=== PATIENT | female | born 1995 | race Caucasian/White ===

== ENCOUNTER → 2017-08-19 16:43 | Outpatient (CLI) | payer SELFPAY ==
[2017-08-19 18:40] LABS: Chlamydia Trachomatis by PCR Negative (Negative); Neisserai gonorrhoeae by PCR Negative (Negative); Probe Check PASS; Sample Adequacy Control PASS; Specimen Processing Control PASS
[2017-08-25 14:14] LABS: HPV Reflexed? NOT INDICATED
== END ==
PROVIDERS: Visit Provider Obstetrics & Gynecology
DX: Z12.4 Encounter for screening for malignant neoplasm of cervix (principal); Z34.90 Encounter for supervision of normal pregnancy, unspecified, unspecified trimester
CPT/HCPCS: 87086; 87088; 87491; 87591; 88175; G0145

== ENCOUNTER → 2017-08-24 13:28 | Outpatient (CLI) | payer OTHER, SELFPAY ==
--- NOTE | 2017-08-24 13:29 | US_ITS ---
STUDY: SECOND AND THIRD TRIMESTER OBSTETRICAL ULTRASOUND REASON FOR EXAM: Female, 21 years old. Routine survey. LMP: March 19, 2017. TECHNIQUE: Transabdominal PRIOR ULTRASOUND: None. FINDINGS: There is a single intrauterine fetus. The fetus is in a breech presentation. There is demonstrated cardiac activity with a heart rate of 139 bpm. There is a normal amniotic fluid volume. The largest amniotic fluid pocket measures 8.5 cm x 5.9 cm.The placenta is fundal in location. There are Grade 0 placental changes. The cervix measures 3.0 cm in length. The adnexal regions are not visualized. BIOMETRY: BPD: 5.49 cm: 22 weeks, 6 days HC: 20.97 cm: 23 weeks, 1 days AC: 17.29 cm: 22 weeks, 2 days FL: 3.98 cm: 22 weeks, 6 days CI: 76% FL/BPD: 72% FL/HC: FL/AC: 23% HC/AC: 1.21 age by current US: 22 weeks, 6 days. HARSHAD by current US: December 22, 2017. Estimated weight: 515 grams, +/- 75 grams, 43 %. Age by LMP: 22 weeks, 4 days. HARSHAD by LMP: December 24, 2017. ANATOMY: Gender: Indeterminant Cranium: Normal lateral ventricles. Normal choroid plexus. Normal cerebellum. Normal cisterna magna. Normal face, nose and lips. Chest: Normal 4-chamber heart. Abdomen/Pelvis: Normal diaphragm. Normal stomach. Normal abdominal wall. Normal cord insertion. Normal 3 vessel cord. Normal kidneys. Normal bladder. Spine: Normal cervical spine. Normal thoracic spine. Normal lumbar spine. Normal sacrum. Extremities: Normal bilateral upper extremities. Normal bilateral lower extremities. US/OB Anatomy Scan IMPRESSION: Single live intrauterine gestation with a mean gestational age of 22 weeks and 6 days. Electronically Signed: Jaziel Ralph MD at 8:55 EDT Tel [phone], Service support ,
== END ==
PROVIDERS: Visit Provider Obstetrics & Gynecology
DX: Z34.90 Encounter for supervision of normal pregnancy, unspecified, unspecified trimester (principal)
CPT/HCPCS: 76805

== ENCOUNTER → 2017-09-21 09:16 | Outpatient (CLI) | payer OTHER, SELFPAY ==
[2017-09-21 10:33] LABS: Glucose Challenge Gest 1H 50g 106 mg/dL (70-140)
== END ==
PROVIDERS: Nurse Practitioner Women's Health; Visit Provider Obstetrics & Gynecology
DX: Z34.90 Encounter for supervision of normal pregnancy, unspecified, unspecified trimester (principal)
CPT/HCPCS: 36415; 82950

== ENCOUNTER → 2017-11-23 13:04 | Outpatient (CLI) | payer SELFPAY ==
--- NOTE | 2017-11-23 13:07 | US_ITS ---
STUDY: SECOND AND THIRD TRIMESTER OBSTETRICAL ULTRASOUND - LIMITED REASON FOR EXAM: Female, 22 years old. growth LMP: PRIOR ULTRASOUND: August 24, 2017 TECHNIQUE: Transabdominal ultrasound evaluation was performed. FINDINGS: There is a single intrauterine fetus. The fetus is in a breech presentation. There is demonstrated cardiac activity with a heart rate of 160 bpm. There is a normal amniotic fluid volume. The largest amniotic fluid pocket measures 3.5 cm. The amniotic fluid index (GRACIA) is 10 cm. The placenta is fundal in location. There are Grade 0 placental changes. The cervix measures 3.2 cm in length. BIOMETRY: BPD: 89mm: 35 weeks, 6 days HC: 319mm: 36 weeks, 0 days AC: 308mm: 34 weeks, 6 days FL: 69mm: 35 weeks, 2 days Age by LMP: 35 weeks, 4 days. HARSHAD by LMP: 8.2.18. age by prior US: 35 weeks, 6 days. HARSHAD by prior US: 7.31.18. age by current US: 35 weeks, 4 days. HARSHAD by current US: 8.2.18. Estimated weight: 2609 grams, +/- 381 grams, 38 percentile. US/OB Limited With Biometrics IMPRESSION: There is a single live intrauterine with a heart rate of 160 bpm. age by current US: 35 weeks, 4 days. HARSHAD by current US: 8.2.18. Estimated weight: 2609 grams, +/- 381 grams, 38 percentile Electronically Signed: Dwight Oswald MD at 22:53 EDT , Service support ,
== END ==
PROVIDERS: Visit Provider Obstetrics & Gynecology
DX: Z34.90 Encounter for supervision of normal pregnancy, unspecified, unspecified trimester (principal)
CPT/HCPCS: 76816

== ENCOUNTER → 2017-12-03 15:16 | Outpatient (CLI) | payer OTHER, SELFPAY ==
[2017-12-03 18:20] LABS: Group B Strep DNA By PCR Negative (Negative); Internal Control PASS; Probe Check PASS; Specimen Processing Control PASS
== END ==
PROVIDERS: Visit Provider Obstetrics & Gynecology
DX: Z34.00 Encounter for supervision of normal first pregnancy, unspecified trimester (principal)
CPT/HCPCS: 87081; 87653

== ENCOUNTER 2017-12-06 06:10 | Inpatient (IN) | payer SELFPAY ==
[2017-12-06 05:23] VITALS: BMI 27.9
[2017-12-06] MEDS: Lactated Ringers 1,000 ML 50 ML IV (06:00)
[2017-12-06] MEDS: Amnioinfusion- 0.9% NS 1,000 ML IV.SOLN. INTRA-UTER (06:37)
[2017-12-06 06:42] LABS: Hemoglobin 13.1 g/dl (12.0-15.0); Mean Corp Hgb Conc 33.6 g/gl (32-36); Mean Corpuscular Volume 86.5 fL (81-99); Mean Platelet Vol. 10.3 fl (6.2-12.0); Platelet Count 223 K/mm3 (150-450); RBC Distribution Width CV 13.6 % (11.6-14.6); Red Blood Count 4.51 M/mm3 (4.2-5.4); White Blood Count 17.7 K/mm3 (4.4-11.0)
[2017-12-06 06:45] LABS: Scan Indicated on CBC? Y/N NO
--- NOTE | 2017-12-06 07:06 | PCM.HP.OB ---
- Problem List (1) Hypothyroidism affecting Status: Acute Qualifiers: Comment: tsh q trimester, on armour thyroid (2) Previous delivery affecting Status: Acute Comment: planning TOLAC, consent signed, information given, 81.8% chance of success (3) Supervision of normal Status: Acute Qualifiers: Comment: Needs PNL HARSHAD 12/24/17 gender surprise PC [facility] Jose History Date of Admission: 12/06/17 Final HARSHAD: 12/24/17 Gestational age: 37 Weeks and 3 Days History of this : This is a 22 year-old, G [], P [], at weeks gestational age. Medical History: Medical History (Last Reviewed 12/03/17 @ 13:54 by Eli Adame) Hypothyroidism E03.9 Surgical History: Surgical History (Last Reviewed 12/03/17 @ 13:54 by Eli Adame) S/P Z98.891 2016 S/P tonsillectomy Z90.89 2010 Allergies No Known Allergies Allergy (Verified 12/03/17 13:53) Home Medications: Home Medications vitamin,calcium,xdgoropl-ufku-ikpnr acid tablet 1 tab PO QDAY 08/19/17 thyroid (pork) 120 mg tablet 120 mg PO QDAY 08/19/17 Smoking Status: Never smoker Alcohol: None Heart Tracins moderate variability reactive initially mild periodic variables and minimal variability TOCO Analysis: q2 History Past Pregnancies: Past Pregnancies Delivery Date Name GA/Weeks Outcome Route Weight Gender Labor Length Anesthesia Delivery Location Provider FOB 2016 [place] 40 term ltcs male epi Labs: Mom[facility] Labs & Results 12/06/17 12/06/17 06:00 06:00 WBC 17.7 H RBC 4.51 Hgb 13.1 Hct 39.0 MCV 86.5 MCH 29.0 MCHC 33.6 RDW 13.6 RDW Differential 43.0 Plt Count 223 MPV 10.3 Blood Type Pending Antibody Screen Pending Social History Smoking Status Never smoker Expected Delivery Method: Number of Visits: 5 Review of Systems Constitutional: Denies: Fever, Malaise Eyes: Denies: Blurred vision, Vision Change HEENT: Denies: Head Aches, Visual Changes Cardiovascular: Denies: Chest Pain, Palpitations Respiratory: Denies: Cough, Shortness of Breath, Wheezing Gastrointestinal: Denies: Abdominal Pain, Diarrhea, Nausea, Vomiting Genitourinary: Denies: Dysuria, Hematuria Musculoskeletal: Denies: Joint Pain, Muscle pain Skin: Denies: Lesions, Rash Neurological: Denies: Blurred vision, Focal weakness, Headaches Psychiatric: Denies: Anxiety, Depression Endocrine: Denies: Heat/ Cold Intolerance Hematologic/ Lymphatic: Denies: Easy Bruising, Easy Bleeding Physical Exam General: Alert, Cooperative, No apparent distress HEENT: Atraumatic, Normocephalic. Negative for: Thyromegaly, Lymphadenopathy Cardiovascular: Regular rate Lungs: Normal air movement Abdomen: Soft, Non Tender, Gravid Neurological: Deep Tendon Reflexes 2+/4 and Symmetrical, Neuro grossly intact. Negative for: Clonus R D MANAGER: Normal external genitalia. Negative for: Vulvar lesions Estimated gestational size: Appropriate for gestational size Presentation: Cephalic Cervix Dilation (cm): 5 Station: 0 Effacement (%): 90 Assessment/Plan All Active Problems (Last Reviewed 12/03/17 @ 13:54 by Eli Adame) Hypothyroidism affecting (Acute) Previous delivery affecting (Acute) Supervision of normal (Acute) This is a 22 year-old, at 37w1d weeks gestational age.
--- NOTE | 2017-12-06 07:12 | HP.PCM_ITS ---
- Problem List (1) Hypothyroidism affecting Status: Acute Qualifiers: Comment: tsh q trimester, on armour thyroid (2) Previous delivery affecting Status: Acute Comment: planning TOLAC, consent signed, information given , 81.8% chance of success (3) Supervision of normal Status: Acute Qualifiers: Comment: Needs PNL HARSHAD 12/24/17 gender surprise PC Melony Jose History Date of Admission: 12/06/17 Final HARSHAD: 12/24/17 Gestational age: 37 Weeks and 3 Days History of this : This is a 22 year-old, G [], P [], at weeks gestational age. Medical History: Medical History (Last Reviewed 12/03/17 @ 13:54 by Eli Adame) Hypothyroidism E03.9 Surgical History: Surgical History (Last Reviewed 12/03/17 @ 13:54 by Eli Adame) S/P Z98.891 2016 S/P tonsillectomy Z90.89 2010 Allergies No Known Allergies Allergy (Verified 12/03/17 13:53) Home Medications: Home Medications vitamin,calcium,feargxyn-axin-exydj acid tablet 1 tab PO QDAY 08/19/17 thyroid (pork) 120 mg tablet 120 mg PO QDAY 08/19/17 Smoking Status: Never smoker Alcohol: None Heart Tracins moderate variability reactive initially mild periodic variables and minimal variability TOCO Analysis: q2 History Past Pregnancies: Past Pregnancies Delivery Date Name GA/Weeks Outcome Route Weight Gender Labor Length Anesthesia Delivery Location Provider FOB 2016 [place] 40 term ltcs male epi Labs: Mom's Labs & Results 12/06/17 12/06/17 06:00 06:00 WBC 17.7 H RBC 4.51 Hgb 13.1 Hct 39.0 MCV 86.5 MCH 29.0 MCHC 33.6 RDW 13.6 RDW Differential 43.0 Plt Count 223 MPV 10.3 Blood Type Pending Antibody Screen Pending Social History Smoking Status Never smoker Expected Infant Delivery Method: Number of Visits: 5 Review of Systems Constitutional: Denies: Fever, Malaise Eyes: Denies: Blurred vision, Vision Change HEENT: Denies: Head Aches, Visual Changes Cardiovascular: Denies: Chest Pain, Palpitations Respiratory: Denies: Cough, Shortness of Breath, Wheezing Gastrointestinal: Denies: Abdominal Pain, Diarrhea, Nausea, Vomiting Genitourinary: Denies: Dysuria, Hematuria Musculoskeletal: Denies: Joint Pain, Muscle pain Skin: Denies: Lesions, Rash Neurological: Denies: Blurred vision, Focal weakness, Headaches Psychiatric: Denies: Anxiety, Depression Endocrine: Denies: Heat/ Cold Intolerance Hematologic/ Lymphatic: Denies: Easy Bruising, Easy Bleeding Physical Exam General: Alert, Cooperative, No apparent distress HEENT: Atraumatic, Normocephalic. Negative for: Thyromegaly, Lymphadenopathy Cardiovascular: Regular rate Lungs: Normal air movement Abdomen: Soft, Non Tender, Gravid Neurological: Deep Tendon Reflexes 2+/4 and Symmetrical, Neuro grossly intact. Negative for: Clonus MAKEUP SALES ADVISOR: Normal external genitalia. Negative for: Vulvar lesions Estimated gestational size: Appropriate for gestational size Presentation: Cephalic Cervix Dilation (cm): 5 Station: 0 Effacement (%): 90 Assessment/Plan All Active Problems (Last Reviewed 12/03/17 @ 13:54 by Eli Adame) Hypothyroidism affecting (Acute) Previous delivery affecting (Acute) Supervision of normal (Acute) This is a 22 year-old, at 37w1d weeks gestational age.
[2017-12-06] MEDS: Oxytocin 30 units/NS 500 ml 30 UNITS/500 ML IV.SOLN 334 UNITS IV (07:56)
--- NOTE | 2017-12-06 08:22 | PCM.OB.VAG ---
- Problem List (1) Hypothyroidism affecting Status: Acute Qualifiers: Comment: tsh q trimester, on armour thyroid (2) Previous delivery affecting Status: Acute Comment: planning TOLAC, consent signed, information given, 81.8% chance of success (3) Supervision of normal Status: Acute Qualifiers: Comment: Needs PNL HARSHAD 12/24/17 gender surprise PC [place] Jose Vaginal Delivery Maternal Presentation: Active Labor 22 yo 37w1d IAL Amniotic Membrane Rupture Type: Artificial Amniotic Fluid Description: Clear Final HARSHAD: 12/24/17 Gestational age: 37 Weeks and 3 Days Date of Procedure: 12/06/17 Pre-Operative Diagnosis: ial Post-Operative Diagnosis: same Surgery/ Procedure Performed: Spontaneous Vaginal Delivery, - - Description of Procedure: Patient began pushing and delivered the head in the henry presentation. The head was delivered atraumatically. The anterior and posterior shoulders delivered without complication followed by the rest of the infant and the was placed on the maternal abdomen. Delayed cord clamping was employed for approximately 60 seconds. Cord was clamped and cut and gentle traction was applied to the cord and the placenta delivered spontaneously immediately following it was noted to be intact with three-vessel cord. The perineum and vagina were inspected and noted to have a second degree laceration that was repaire din the usual fashion with 3-0 vicryl rapide. EBL was 200 cc. Patient and tolerated delivery well.
[2017-12-06] MEDS: Oxytocin 30 units/NS 500 ml 30 UNITS/500 ML IV.SOLN 167 UNITS IV (08:24)
--- NOTE | 2017-12-06 08:25 | OP.PCM_ITS ---
- Problem List (1) Hypothyroidism affecting Status: Acute Qualifiers: Comment: tsh q trimester, on armour thyroid (2) Previous delivery affecting Status: Acute Comment: planning TOLAC, consent signed, information given , 81.8% chance of success (3) Supervision of normal Status: Acute Qualifiers: Comment: Needs PNL HARSHAD 12/24/17 gender surprise PC [place] Jose Vaginal Delivery Maternal Presentation: Active Labor 22 yo 37w1d IAL Amniotic Membrane Rupture Type: Artificial Amniotic Fluid Description: Clear Final HARSHAD: 12/24/17 Gestational age: 37 Weeks and 3 Days Date of Procedure: 12/06/17 Pre-Operative Diagnosis: ial Post-Operative Diagnosis: same Surgery/ Procedure Performed: Spontaneous Vaginal Delivery, - - Description of Procedure: Patient began pushing and delivered the head in the henry presentation. The head was delivered atraumatically. The anterior and posterior shoulders delivered without complication followed by the rest of the infant and the was placed on the maternal abdomen. Delayed cord clamping was employed for approximately 60 seconds. Cord was clamped and cut and gentle traction was applied to the cord and the placenta delivered spontaneously immediately following it was noted to be intact with three-vessel cord. The perineum and vagina were inspected and noted to have a second degree laceration that was repaire din the usual fashion with 3-0 vicryl rapide. EBL was 200 cc. Patient and infant tolerated delivery well.
[2017-12-06] MEDS: Naproxen 250 MG Tablet PO (09:59)
[2017-12-06 11:44] LABS: HIV - WCH Non-Reactive (Nonreactive)
[2017-12-06 12:38] VITALS: BP 112/64; PULSE 89; RESP 18; TEMP 36.8
[2017-12-06] MEDS: Prenatal Vits Tablet 1 TABLET PO (12:42)
[2017-12-06 17:00] VITALS: BP 120/70; PULSE 60; RESP 18; TEMP 36.8
[2017-12-06 21:10] VITALS: BP 118/70; PULSE 103; RESP 18; TEMP 36.4; O2SAT 95
[2017-12-06] MEDS: DiphenhydrAMINE 25 MG Capsule PO (22:39)
[2017-12-07 00:20] VITALS: BP 97/48; PULSE 74; RESP 18; TEMP 36.6; O2SAT 96
[2017-12-07 04:05] VITALS: BP 103/65; PULSE 67; RESP 18; TEMP 36.3; O2SAT 96
[2017-12-07] MEDS: Thyroid 60 MG Tablet 120 MG PO (06:50)
[2017-12-07 08:15] VITALS: BP 109/73; PULSE 90; RESP 16; TEMP 36.4; O2SAT 97
[2017-12-07] MEDS: Prenatal Vits Tablet 1 TABLET PO (11:32)
[2017-12-07 13:55] VITALS: BP 103/56; PULSE 84; RESP 18; TEMP 37.2; O2SAT 98
[2017-12-07 20:10] VITALS: BP 105/73; PULSE 86; RESP 16; TEMP 36.7; O2SAT 97
[2017-12-07] MEDS: Naproxen 250 MG Tablet PO (21:45)
[2017-12-08 02:00] VITALS: BP 104/63; PULSE 73; RESP 16; TEMP 36.7
[2017-12-08] MEDS: Thyroid 60 MG Tablet 120 MG PO (06:22)
--- NOTE | 2017-12-08 07:43 | VDLE_ITS ---
Reason For Study: LEG PAIN RIGHT GSV is normal. CFV is compressible, spontaneous, phasic, competent and demonstrates normal augmentation. FV is compressible, spontaneous, phasic, competent and demonstrates normal augmentation. POP V is compressible, spontaneous, phasic, competent and demonstrates normal augmentation. T/P Trunk is compressible. PTV is compressible. RT PerV is compressible. Thrombus filled varicose veins medial thigh. Procedure Exam performed portable in patient room. A preliminary report was called and/or faxed to [facility] nurse. Interpretation Summary Deep veins of the right lower extremity are patent and compressible segmentally. There is no evidence of right lower extremity deep vein thrombosis. Valvular competence appears intact within the proximal deep venous system on the right . The right greater saphenous vein appears patent and compressible segmentally. Acute superficial thrombophlebitis is noted involving superficial varicosities in the right medial thigh. Ordering Physician: Mini Lamb Referring Physician: America Crabtree Performed By: Surekha Castaneda RVT
--- NOTE | 2017-12-08 07:45 | PCM.PN.OB ---
Subjective: complaint inner right thigh pain. NO CP, SOB. Ambulating, urinating without difficulty - Physical Exam General: Alert, Oriented x3 Abdomen: Soft, Non Tender, - - FF below U Extremities: - - Right inner thigh tender to touch, minimal eythema, warm to touch. Noted superficial varicosity at site with small firm area. Vital Signs Temp Pulse Resp BP Pulse Ox 98.0 F 73 16 104/63 97 12/08/17 02:00 12/08/17 02:00 12/08/17 02:00 12/08/17 02:00 12/07/17 20:10 Oxygen Delivery Method Room Air Weight: 167 lb 12.348 oz Body Mass Index (BMI) 27.9 Intake and Output for Last 24 Hours 12/06/17 12/07/17 12/08/17 23:59 23:59 23:59 Intake Total 1750 / 1750 Output Total 800 / 800 Balance 950 / 950 Medical Necessity - Tobacco Use Smoking Status: Never smoker Assessment/Plan All Active Problems (Last Reviewed 12/03/17 @ 13:54 by Eli Adame) Hypothyroidism affecting (Acute) Previous delivery affecting (Acute) Supervision of normal (Acute) Status p PPD #2: Venous doppler right thigh, if negative home today and routine care.
--- NOTE | 2017-12-08 07:49 | PCM.DCVAG ---
Additional Instructions: If you experience any of the following, contact your healthcare provider. Bleeding that soaks a pad every hour for 2 hours Fever 100.4 or higher Unrelieved incision or abdominal pain Swelling, redness, discharge or bleeding from your incision or episiotomy site Your incision begins to separate Problems urinating (including inability to urinate or burning while urinating). Visual changes Severe headache Flu-like symptoms Pain or redness in one of both of your breasts Pain, warmth, tenderness or swelling in your legs, especially the calf area Frequent nausea and vomiting Symptoms of depression or anxiety If you experience any of the following, call 911 or go to the nearest Emergency Room. Chest pain Problems breathing Seizure activity Partial or complete paralysis of a body part, slurred speech, weakness or drooping of the face, or a sudden inability to walk or hold your balance Allergies/Adverse Reactions: Allergies No Known Allergies Allergy (Verified 12/03/17 13:53) Medications to take at Discharge vitamin,calcium,jntdoiyy-jsvd-gacjj acid tablet 1 tab PO QDAY 08/19/17 thyroid (pork) 120 mg tablet 120 mg PO QDAY 08/19/17 Primary Care Physician: Care Physician,No Primary [Primary Care Provider] - Test Results: Test results from this visit will be discussed in further detail at your follow-up appointment, if applicable.
--- NOTE | 2017-12-08 07:50 | DCINST_ITS ---
Additional Instructions: If you experience any of the following, contact your healthcare provider. * Bleeding that soaks a pad every hour for 2 hours * Fever 100.4 or higher * Unrelieved incision or abdominal pain * Swelling, redness, discharge or bleeding from your incision or episiotomy site * Your incision begins to separate * Problems urinating (including inability to urinate or burning while urinating) . * Visual changes * Severe headache * Flu-like symptoms * Pain or redness in one of both of your breasts * Pain, warmth, tenderness or swelling in your legs, especially the calf area * Frequent nausea and vomiting * Symptoms of depression or anxiety If you experience any of the following, call 911 or go to the nearest Emergency Room. * Chest pain * Problems breathing * Seizure activity * Partial or complete paralysis of a body part, slurred speech, weakness or drooping of the face, or a sudden inability to walk or hold your balance Allergies/Adverse Reactions: Allergies No Known Allergies Allergy (Verified 12/03/17 13:53) Medications to take at Discharge vitamin,calcium,dzxxbbld-dqhc-oodps acid tablet 1 tab PO QDAY 08/19/17 thyroid (pork) 120 mg tablet 120 mg PO QDAY 08/19/17 Primary Care Physician: Care Physician,No Primary [Primary Care Provider] - Test Results: Test results from this visit will be discussed in further detail at your follow- up appointment, if applicable.
[2017-12-08 07:53] LABS: HEPATITIS B SURFACE AG Negative (Negative)
[2017-12-08 08:00] VITALS: PULSE 84; RESP 18; TEMP 36.2
[2017-12-08] MEDS: Dibucaine 30 GM Tube 1 APPLIC TOPICAL (08:53)
[2017-12-11 03:16] LABS: Rapid Plasmin Reagin (RPR) NONREACTIVE (NONREACTIVE)
== END 2017-12-08 11:00 | disposition home or self-care (01) | DRG 774 ==
LOC: WPOUT 06:16 → WP 07:57
PROVIDERS: Admitting Provider Obstetrics & Gynecology; Visit Provider Obstetrics & Gynecology
DX: O34.211 Maternal care for low transverse scar from previous cesarean delivery (principal); O90.89 Other complications of the puerperium, not elsewhere classified; O99.284 Endocrine, nutritional and metabolic diseases complicating childbirth; E03.9 Hypothyroidism, unspecified; O70.1 Second degree perineal laceration during delivery; Z3A.37 37 weeks gestation of pregnancy; Z37.0 Single live birth; M79.651 Pain in right thigh
CPT/HCPCS: 59025; 59050; 85027; 86592; 86703; 86850; 86900; 87340; 93971; 99218; J7030; J7120; G0378

== ENCOUNTER → 2019-01-18 | Outpatient (CLI) | payer SELFPAY ==
[2019-01-18 11:33] VITALS: BMI 25.6
--- NOTE | 2019-01-18 12:32 | US_ITS ---
STUDY: SECOND AND THIRD TRIMESTER OBSTETRICAL ULTRASOUND REASON FOR EXAM: Female, 23 years old. Evaluate anatomy LMP: 08/27/2018 TECHNIQUE: Transabdominal TECHNICAL QUALITY: Adequate. PRIOR ULTRASOUND: None. FINDINGS: There is a single intrauterine fetus. The fetus is in a breech presentation. There is demonstrated cardiac activity with a heart rate of 152 bpm. There is a normal amniotic fluid volume. The largest amniotic fluid pocket measures 4.4 x 5.2 cm. The amniotic fluid index (GRACIA) is 12.8 cm. The placenta is anterior in location and is not low lying. There are Grade 1 placental changes. The cervix measures 3.4 cm in length. The adnexal regions are not visualized. BIOMETRY: BPD: 4.66 cm: 20 weeks, 1 days HC: 18.35 cm: 20 weeks, 6 days AC: 15.18 cm: 20 weeks, 3 days FL: 3.37 cm: 20 weeks, 6 days CI: 71% FL/BPD: 72% FL/AC: 22% HC/AC: 1.21 age by current US: 20 weeks, 4 days. HARSHAD by current US: 06/03/2019. Estimated weight: 357 grams, +/- 52 grams, 40 %. Age by LMP: 20 weeks, 4 days. HARSHAD by LMP: 06/03/2019. ANATOMY: Gender: Male Cranium: Normal lateral ventricles. Normal choroid plexus. Normal cerebellum. Normal cisterna magna. Normal face, nose and lips. Chest: Normal 4-chamber heart. Abdomen/Pelvis: Normal diaphragm. Normal stomach. Normal abdominal wall. Normal cord insertion. Normal 3 vessel cord. Normal kidneys. Normal bladder. Spine: Normal cervical spine. Normal thoracic spine. Normal lumbar spine. Normal sacrum. Extremities: Normal bilateral upper extremities. Normal bilateral lower extremities. US/OB Anatomy Scan IMPRESSION: Single viable intrauterine of approximately 20 weeks 4 days gestational age by current ultrasonographic measurement. No anatomical abnormalities were identified. Electronically Signed: Jerzy Sanchez MD at 19:02 EDT , Service support ,
[2019-01-18 21:25] LABS: Chlamydia Trachomatis by PCR Negative (Negative); Neisserai gonorrhoeae by PCR Negative (Negative); Probe Check PASS; Sample Adequacy Control PASS; Specimen Processing Control PASS
== END | disposition home or self-care (01) ==
PROVIDERS: Referring Provider Obstetrics & Gynecology; Visit Provider Obstetrics & Gynecology
DX: Z34.90 Encounter for supervision of normal pregnancy, unspecified, unspecified trimester (principal)
CPT/HCPCS: 76805; 87086; 87088; 87491; 87591

== ENCOUNTER → 2019-03-02 | Outpatient (CLI) | payer SELFPAY ==
[2019-03-02 10:54] VITALS: BMI 25.6
[2019-03-02 12:07] LABS: Absolute Lymphocyte Count 1.71 X10^3/uL (0.83-4.51); Absolute Neutrophil Count 6.9 X10^3/uL (2.0-7.7); Basophil# 0.03 X10^3/uL; Basophil% 0.3 % (0-1); Eosinophil# 0.19 X10^3/uL; Hematocrit 37.1 % (37-47); Hemoglobin 12.1 g/dL (12.0-15.0); Lymphocyte # 1.71 X10^3/ul (4.0); Lymphocyte % 18.1 % (19-41); Mean Corp Hgb Conc 32.6 g/dL (32-36); Mean Corpuscular Hgb 28.9 pg (27.0-32.0); Mean Corpuscular Volume 88.5 fL (81-99); Mean Platelet Vol. 9.9 fl (6.2-12.0); Monocyte# 0.54 X10^3/uL; Monocyte% 5.7 % (0-10); NRBC Flagged by Analyzer 0 % (0-5); Neutrophil # 6.91 X10^3/uL (2.7-7.7); Neutrophil % 73.3 % (47-70); Platelet Count 229 K/mm3 (150-450); RBC Distribution Width CV 13.5 % (11.6-14.6); RBC Distribution Width SD 43.5 fl (35.1-43.9); Red Blood Count 4.19 M/mm3 (4.2-5.4); White Blood Count 9.4 K/mm3 (4.4-11.0)
[2019-03-02 12:41] LABS: Glucose Challenge Gest 1H 50g 68 mg/dL (70-140)
== END | disposition home or self-care (01) ==
PROVIDERS: Referring Provider Obstetrics & Gynecology; Visit Provider Obstetrics & Gynecology
DX: Z34.92 Encounter for supervision of normal pregnancy, unspecified, second trimester (principal); Z3A.26 26 weeks gestation of pregnancy
CPT/HCPCS: 36415; 82950; 85025

== ENCOUNTER 2019-03-28 13:05 | Outpatient (CLI) | payer OTHER, SELFPAY ==
[2019-03-02 10:54] VITALS: BMI 25.6
[2019-03-28 13:20] VITALS: BMI 27.6
[2019-03-28 13:58] LABS: Color, Urine Yellow (Yellow); Glucose, Dipstick Normal (Normal); Ketone-Dipstick Negative (Negative); Leukocyte Esterase-Dipstick 25 /ul (Negative); Nitrite-Dipstick Negative (Negative); Occult Blood-Urine Negative /ul (Negative); Protein-Dipstick Negative (Negative); Specific Gravity, Urine 1.005 (1.002-1.030); Urine Bilirubin Dipstick Negative (Negative); Urine Clarity Clear (Clear); Urine Urobilinogen Normal (Normal)
--- NOTE | 2019-03-28 22:35 | OB.TRI.PN ---
Progress Notes Date of Service: 03/28/19 Progress Note: Patient presents for triage evaluation secondary to vaginal bleeding FHT: 130 Moderate variability reactive no decelerations category I tracing [place]: No regular contractions Assessment and plan: Vaginal bleeding reactive NST, reassuring maternal and status patient discharged to home to follow-up in office in 1 to 2 weeks. See problem list details for additional plan information. Laboratory Studies: Laboratory Tests 03/28/19 Range/Units 13:45 Urine Color Yellow (Yellow) Urine Clarity Clear (Clear) Urine pH 7.0 (5.0 - 8.0) Ur Specific [place] 1.005 (1.002-1.030) Urine Protein Negative (Negative) mg/dl Urine Glucose (UA) Normal (Normal) mg/dl Urine Ketones Negative (Negative) mg/dl Urine Occult Blood Negative (Negative) /ul Urine Nitrite Negative (Negative) Urine Bilirubin Negative (Negative) mg/dL Urine Urobilinogen Normal (Normal) mg/dl Ur Leukocyte Esterase 25 H (Negative) /ul Multi Select Codes - Urinary/Genital Urinary/Genital CPT Codes: 86435-24 non-stress test Interp
== END 2019-03-28 14:25 | disposition home or self-care (01) ==
LOC: WPOUT 13:13 → OBT 13:14
PROVIDERS: Referring Provider Obstetrics & Gynecology; Visit Provider Obstetrics & Gynecology
DX: O46.90 Antepartum hemorrhage, unspecified, unspecified trimester (principal); Z3A.00 Weeks of gestation of pregnancy not specified
CPT/HCPCS: 59025; 59050; 81002; 99218; G0378

== ENCOUNTER → 2019-05-09 16:55 | Outpatient (CLI) | payer OTHER, SELFPAY ==
[2019-05-09 14:05] VITALS: BMI 27.6
== END ==
PROVIDERS: Referring Provider Obstetrics & Gynecology; Visit Provider Obstetrics & Gynecology
DX: Z34.93 Encounter for supervision of normal pregnancy, unspecified, third trimester (principal); Z3A.36 36 weeks gestation of pregnancy
CPT/HCPCS: 87081

== ENCOUNTER 2019-05-29 09:55 | Inpatient (IN) | payer SELFPAY ==
[2019-01-25 05:40] VITALS: BMI 25.2
[2019-05-26 13:54] VITALS: BMI 27.6
[2019-05-29 10:09] VITALS: BMI 28.6
[2019-05-29] MEDS: Lactated Ringers 1,000 ML 200 ML IV (10:15)
--- NOTE | 2019-05-29 11:03 | HP.PCM_ITS ---
- Problem List (1) SROM (spontaneous rupture of membranes) Status: Acute (2) Tetanus, diphtheria, and acellular pertussis (Tdap) vaccination declined Status: Acute Comment: declines on 03/02/19 (3) Influenza vaccination declined Status: Acute Comment: declined on 03/02/19 (4) Late care affecting Status: Acute Comment: 20 weeks first visit (5) Hx successful (vaginal after ), currently Status: Acute Comment: plan (6) Status: Acute Qualifiers: Comment: Declines genetic, carrier and NTD. Anatomy US normal (7) Hypothyroidism affecting Status: Acute Qualifiers: Comment: tsh q trimester, on armour thyroid (8) Previous delivery affecting Status: Acute Comment: (9) Supervision of normal Status: Acute Qualifiers: Comment: HARSHAD 06/03/2019 gender surprise JOSÉ MIGUEL Melony, Yazan Jose History Date of Admission: 12/06/17 Final HARSHAD: 06/03/19 Gestational age: 39 Weeks and 2 Days History of this : This is a 23 year-old, at 39 weeks gestational age presents IAL 4 cm with SROm clear fluid. desires . Medical History: Medical History (Last Reviewed 05/26/19 @ 13:53 by Aleshia French) Hypothyroidism E03.9 Surgical History: Surgical History (Last Reviewed 05/26/19 @ 13:53 by Aleshia French) S/P Z98.891 2016 S/P tonsillectomy Z90.89 2010 Allergies No Known Allergies Allergy (Verified 05/26/19 13:53) Home Medications: Home Medications prenat.vits,tuyet,rss-sccl-fszxr 1 tab PO QDAY 08/19/17 thyroid (pork) 120 mg tablet 90 mg PO QDAY tab 01/18/19 Smoking Status: Never smoker Alcohol: None Number of Fetus(es): 1 NST - FHR Rate Baby A Baseline: 150 Variability:: Moderate Accelerations:: 15 x 15 Decelerations:: None NST Reactive:: Yes FHR Category:: Category I Uterine Activity:: q 2-3 History Past Pregnancies: Past Pregnancies Pregancy History 3 Elective abortions Hx Para 2 Spontaneous abortions Hx # Term Pregnancies Ectopic pregnancies Hx # Pregnancies Multiple births # of living children 2 Past Pregnancies Del. Date Name GA/Weeks Outcome Route Bth Weight Gen Labor Lgth Ane sthesia Del Locatn Provider FOB 07/20/16 Melony 40 live - full term 7 lb s 12 oz Male Сергей Pan 12/06/17 Yazan 37 live - full term 6lbs 10oz Male 8 hours none [facility] Jose Delivery Date: 07/20/16 On 08/19/17 @ 08:59 America Crabtree NRFHTS, was told by dr kiser CPD Delivery Date: 12/06/17 On 01/18/18 @ 14:02 Aleshia French No issues during or delivery. Labs: Mom's Labs & Results 05/29/19 05/29/19 10:15 10:15 WBC Pending RBC Pending Hgb Pending Hct Pending MCV Pending MCH Pending MCHC Pending RDW Std Deviation Pending RDW Coeff of Roxy Pending Plt Count Pending Neut % (Auto) Pending Absolute Neuts (auto) Pending Blood Type Pending Antibody Screen Pending Course Did the patient receive Yes care? Labs Blood Type: A RH: POSITIVE Chlamydia Negative Gonorrhea Negative HIV/AIDS Non-Reactive Group B Strep: Negative Other Lab Procedures/Results/ rpr, hep b, hiv, rubella- not done this Comments: drawn on admission Current Obstetrical History Gestational Diabetes No Incompetent Cervix No Infertility No IUGR No Macrosomia No Hypertension/Pre-eclampsia No Placenta Previa/Abruption No PTL/PROM No Uterine anomaly No Oligohydramnios No Polyhydramnios No Multiple gestation No Past Medical History Asthma No Diabetes No Hypertension No Heart disease No Mitral valve prolapse No Neurologic/Seizure disorder/ No Migraines Kidney disease No Liver disease No Varicosities No Clotting disorders/Hx of DVT No Thyroid Dysfunction No Other medical diseases No Psychiatric disorders No Major trauma No Abnormal PAP smear No Sleep apnea No Mammogram in the last 2 years No Social History Marital Status: 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 Hx Smoking No Smoking Status Never smoker Expected Delivery Method: Review of Systems Constitutional: Denies: Fever, Malaise Eyes: Denies: Blurred vision, Vision Change HEENT: Denies: Head Aches, Visual Changes Cardiovascular: Denies: Chest Pain, Palpitations Respiratory: Denies: Cough, Shortness of Breath, Wheezing Gastrointestinal: Denies: Abdominal Pain, Diarrhea, Nausea, Vomiting Genitourinary: Denies: Dysuria, Hematuria Musculoskeletal: Denies: Joint Pain, Muscle pain Skin: Denies: Lesions, Rash Neurological: Denies: Blurred vision, Focal weakness, Headaches Psychiatric: Denies: Anxiety, Depression Endocrine: Denies: Heat/ Cold Intolerance Hematologic/ Lymphatic: Denies: Easy Bruising, Easy Bleeding Physical Exam General: Alert, Cooperative, No apparent distress HEENT: Atraumatic, Normocephalic. Negative for: Thyromegaly, Lymphadenopathy Cardiovascular: Regular rate Lungs: Normal air movement Abdomen: Soft, Non Tender, Gravid Neurological: Deep Tendon Reflexes 2+/4 and Symmetrical, Neuro grossly intact. Negative for: Clonus ACOUSTIC ENGINEER: Normal external genitalia. Negative for: Vulvar lesions Estimated gestational size: Appropriate for gestational size Presentation: Cephalic Assessment/Plan All Active Problems (Last Reviewed 05/26/19 @ 13:53 by Aleshia French) SROM (spontaneous rupture of membranes) (Acute) Tetanus, diphtheria, and acellular pertussis (Tdap) vaccination declined (Acute) Influenza vaccination declined (Acute) Late care affecting (Acute) Hx successful (vaginal after ), currently (Acute) (Acute) Hypothyroidism affecting (Acute) Previous delivery affecting (Acute) Supervision of normal (Acute) This is a 23 year-old, at 39 weeks gestational age presents IAL TOLAC. previous x 1 routine care done precipitous delivery uncomplicated
[2019-05-29 11:05] LABS: Absolute Lymphocyte Count 1.66 X10^3/uL (0.83-4.51); Absolute Neutrophil Count 9.5 X10^3/uL (2.0-7.7); Basophil# 0.03 X10^3/uL; Basophil% 0.3 % (0-1); Eosinophil# 0.06 X10^3/uL; Eosinophils% 0.5 % (0-5); Hematocrit 40.3 % (37-47); Hemoglobin 13.6 g/dL (12.0-15.0); Lymphocyte # 1.66 X10^3/ul (4.0); Mean Corp Hgb Conc 33.7 g/dL (32-36); Mean Corpuscular Hgb 28.8 pg (27.0-32.0); Mean Corpuscular Volume 85.4 fL (81-99); Mean Platelet Vol. 10.2 fl (6.2-12.0); Monocyte% 4.2 % (0-10); NRBC Flagged by Analyzer 0 % (0-5); Neutrophil # 9.54 X10^3/uL (2.7-7.7); Neutrophil % 80.2 % (47-70); Platelet Count 251 K/mm3 (150-450); RBC Distribution Width CV 12.8 % (11.6-14.6); RBC Distribution Width SD 39.6 fl (35.1-43.9); Red Blood Count 4.72 M/mm3 (4.2-5.4); White Blood Count 11.9 K/mm3 (4.4-11.0)
[2019-05-29] MEDS: Oxytocin 30 units/NS 500 ml 30 UNITS/500 ML IV.SOLN 334 UNITS IV (11:24)
--- NOTE | 2019-05-29 11:38 | PCM.OPRPT ---
Problem List (1) SROM (spontaneous rupture of membranes) Status: Acute (2) Tetanus, diphtheria, and acellular pertussis (Tdap) vaccination declined Status: Acute Comment: declines on 03/02/19 (3) Influenza vaccination declined Status: Acute Comment: declined on 03/02/19 (4) Late care affecting Status: Acute Comment: 20 weeks first visit (5) Hx successful (vaginal after ), currently Status: Acute Comment: plan (6) Status: Acute Qualifiers: Comment: Declines genetic, carrier and NTD. Anatomy US normal (7) Hypothyroidism affecting Status: Acute Qualifiers: Comment: tsh q trimester, on armour thyroid (8) Previous delivery affecting Status: Acute Comment: (9) Supervision of normal Status: Acute Qualifiers: Comment: HARSHAD 06/03/2019 gender surprise Yazan Peguero Jose Vaginal Delivery Maternal Presentation: Active Labor ial 4 cm srom clear fluid Amniotic Membrane Rupture Type: Spontaneous at home Amniotic Fluid Description: Clear Final HARSHAD: 06/03/19 Gestational age: 39 Weeks and 2 Days Date of Procedure: 05/29/19 Pre-Operative Diagnosis: IAL TOLAC Post-Operative Diagnosis: same Surgery/ Procedure Performed: Spontaneous Vaginal Delivery, - - Description of Procedure: Patient began pushing on hands and knees and delivered the head in the RANDOLPH presentation. The head was delivered atraumatically . The anterior and posterior shoulders delivered without complication followed by the rest of the and the was placed on the maternal abdomen. Delayed cord clamping was employed for approximately 60 seconds. Cord was clamped and cut and gentle traction was applied to the cord and the placenta delivered spontaneously immediately following it was noted to be intact with three-vessel cord. The perineum and vagina were inspected and noted to have a second-degree perineal laceration that was repaired in the usual fashion with 3-0 Vicryl repeat after injecting with 1% lidocaine. EBL was 300 cc. Patient and infant tolerated delivery well. Presentation: RANDOLPH Placental Delivery Description: Spontaneous Placenta Disposition: [facility] Codes - Urinary/Genital Urinary/Genital CPT Codes: 77670 delivery [facility]
[2019-05-29] MEDS: Naproxen 250 MG Tablet 500 MG PO ×2 (12:03→20:26)
[2019-05-29 14:10] LABS: HIV - WCH Non-Reactive (Nonreactive)
[2019-05-29 16:05] VITALS: BP 119/63; PULSE 89; RESP 18; TEMP 37.4
[2019-05-29 20:00] VITALS: BP 126/63; PULSE 76; RESP 16; TEMP 36.6
[2019-05-30 00:10] VITALS: BP 118/64; PULSE 93; RESP 16; TEMP 36.8
[2019-05-30 04:00] VITALS: BP 109/57; PULSE 71; RESP 16; TEMP 36.8
--- NOTE | 2019-05-30 07:50 | PCM.PN.OB ---
Patient Problems: Active and Suspected Problems (Last Reviewed 05/26/19 @ 13:53 by Aleshia French) SROM (spontaneous rupture of membranes) (Acute) Subjective: doing well no complaints pain controlled no CP SOB N V ambulating well tolerating po lochia moderate, going well - Physical Exam Vitals/I&O's: Vital Signs Temp Pulse Resp BP 98.2 F 71 16 109/57 L 05/30/19 04:00 05/30/19 04:00 05/30/19 04:00 05/30/19 04:00 Oxygen Delivery Method Room Air Weight: 171 lb 15.369 oz Body Mass Index (BMI) 28.6 Intake and Output for Last 24 Hours 05/28/19 05/29/19 05/30/19 23:59 23:59 23:59 Intake Total 730.00 / 730.00 Output Total 700 / 700 Balance 30.00 / 30.00 General: Alert, Oriented x3 Abdomen: Soft, Non Tender, - - FF below U Laboratory Results 05/29/19 10:15: WBC 11.9 H, RBC 4.72, Hgb 13.6, Hct 40.3, MCV 85.4, MCH 28.8, MCHC 33.7, RDW Std Deviation 39.6, RDW Coeff of Roxy 12.8, Plt Count 251, MPV 10.2, Immature Gran % (Auto) 0.800, Neut % (Auto) 80.2 H, Lymph % (Auto) 14.0 L, [place] % (Auto) 4.2, Eos % (Auto) 0.5, Baso % (Auto) 0.3, Absolute Neuts (auto) 9.5 H, Absolute Lymphs (auto) 1.66, Nucleated RBC % 0 05/29/19 10:15: Blood Type A POSITIVE, Antibody Screen NEGATIVE 05/29/19 12:35: RPR Pending 05/29/19 12:35: Hep Bs Antigen Nonreactive, Rubella IgG Antibody Pending 05/29/19 12:35: HIV 1&2 Antibody Non-Reactive Current Medications Acetaminophen (Tylenol) 1,000 mg PO Q8H PRN PRN PRN Reason: Pain Score 1-3/10 Bisacodyl (Dulcolax) 10 mg RECTAL UD PRN PRN Reason: If no BM Dibucaine (Dibucaine) 1 applic TOPICAL TID PRN PRN; Protocol PRN Reason: Discomfort Hydrocortisone (Hytone) 1 applic TOPICAL TID PRN PRN; Protocol PRN Reason: Discomfort Methylergonovine Maleate (Methergine) 0.2 mg IM X1 PRN PRN Reason: Excess bleeding/uterine atony Naproxen (Naprosyn) 500 mg PO Q8H PRN PRN PRN Reason: Pain Score 1-3/10 Last Admin: 05/29/19 20:26 Dose: 500 mg Documented by: Ondansetron HCl (Zofran) 4 mg IV Q4H PRN PRN PRN Reason: Nausea Oxycodone HCl (Oxyir) 5 - 10 mg PO Q4H PRN PRN PRN Reason: Pain Score 4-10/10 Senna/Docusate Sodium (Senokot-S, Mago-Colace) 1 - 2 tablet PO DAILY PRN PRN PRN Reason: Constipation Simethicone (Mylicon) 80 mg PO PCHS PRN PRN Reason: Indigestion/Stomach pain Sodium Chloride () 5 - 15 ml IV UD PRN PRN Reason: SALINE FLUSH Medical Necessity - Tobacco Use Smoking Status: Never smoker Assessment/Plan All Active Problems (Last Reviewed 05/26/19 @ 13:53 by Aleshia French) SROM (spontaneous rupture of membranes) (Acute) Tetanus, diphtheria, and acellular pertussis (Tdap) vaccination declined (Acute) Influenza vaccination declined (Acute) Late care affecting (Acute) Hx successful (vaginal after ), currently (Acute) (Acute) Hypothyroidism affecting (Acute) Previous delivery affecting (Acute) Supervision of normal (Acute) s/p PPD # 1 1. routine post delivery care 2. breast feeding- support given 3. rh positive 4. rubella pending
[2019-05-30 08:25] VITALS: BP 107/68; PULSE 88; RESP 16; TEMP 36.3; O2SAT 97
[2019-05-30 09:20] LABS: Hepatitis B Surface Antigen Non-Reactive (Nonreactive); Rubella IgG 103.5 IU/mL
[2019-05-30 12:01] LABS: Rapid Plasmin Reagin (RPR) NONREACTIVE (NONREACTIVE)
[2019-05-30 15:01] VITALS: BP 115/58; PULSE 77; RESP 16; TEMP 36.3
[2019-05-30 20:08] VITALS: BP 130/73; PULSE 102; RESP 18; TEMP 36.4
[2019-05-30] MEDS: Senna/Docusate Sodium 1 Tablet PO (20:15)
[2019-05-30] MEDS: Naproxen 250 MG Tablet 500 MG PO (20:15)
[2019-05-31 02:40] VITALS: BP 101/51; PULSE 66; RESP 16; TEMP 36.4
[2019-05-31 07:21] VITALS: BP 130/73; PULSE 90; RESP 16; TEMP 36.3
--- NOTE | 2019-05-31 07:51 | PCM.PN.OB ---
Patient Problems: Active and Suspected Problems (Last Reviewed 05/26/19 @ 13:53 by Aleshia French) SROM (spontaneous rupture of membranes) (Acute) Subjective: doing well no complaints pain controlled no CP SOB N V ambulating well tolerating po lochia moderate, going well - Physical Exam Vitals/I&O's: Vital Signs Temp Pulse Resp BP Pulse Ox 97.4 F L 90 16 130/73 H 97 05/31/19 07:21 05/31/19 07:21 05/31/19 07:21 05/31/19 07:21 05/30/19 08:25 Oxygen Delivery Method Room Air Weight: 171 lb 15.369 oz Body Mass Index (BMI) 28.6 Intake and Output for Last 24 Hours 05/29/19 05/30/19 05/31/19 23:59 23:59 23:59 Intake Total 730.00 / 730.00 Output Total 700 / 700 Balance 30.00 / 30.00 General: Alert, Oriented x3 Abdomen: Soft, Non Tender, Non-Distended, - - FF below U Laboratory Results 05/29/19 12:35: RPR NONREACTIVE 05/29/19 12:35: Hep Bs Antigen Non-Reactive, Rubella IgG Antibody 103.5 Current Medications Acetaminophen (Tylenol) 1,000 mg PO Q8H PRN PRN PRN Reason: Pain Score 1-3/10 Bisacodyl (Dulcolax) 10 mg RECTAL UD PRN PRN Reason: If no BM Dibucaine (Dibucaine) 1 applic TOPICAL TID PRN PRN; Protocol PRN Reason: Discomfort Hydrocortisone (Hytone) 1 applic TOPICAL TID PRN PRN; Protocol PRN Reason: Discomfort Methylergonovine Maleate (Methergine) 0.2 mg IM X1 PRN PRN Reason: Excess bleeding/uterine atony Naproxen (Naprosyn) 500 mg PO Q8H PRN PRN PRN Reason: Pain Score 1-3/10 Last Admin: 05/30/19 20:15 Dose: 500 mg Documented by: Ondansetron HCl (Zofran) 4 mg IV Q4H PRN PRN PRN Reason: Nausea Oxycodone HCl (Oxyir) 5 - 10 mg PO Q4H PRN PRN PRN Reason: Pain Score 4-10/10 Senna/Docusate Sodium (Senokot-S, Mago-Colace) 1 - 2 tablet PO DAILY PRN PRN PRN Reason: Constipation Last Admin: 05/30/19 20:15 Dose: 2 tablet Documented by: Simethicone (Mylicon) 80 mg PO PCHS PRN PRN Reason: Indigestion/Stomach pain Sodium Chloride () 5 - 15 ml IV UD PRN PRN Reason: SALINE FLUSH Medical Necessity - Tobacco Use Smoking Status: Never smoker Assessment/Plan All Active Problems (Last Reviewed 05/26/19 @ 13:53 by Aleshia French) SROM (spontaneous rupture of membranes) (Acute) Tetanus, diphtheria, and acellular pertussis (Tdap) vaccination declined (Acute) Influenza vaccination declined (Acute) Late care affecting (Acute) Hx successful (vaginal after ), currently (Acute) (Acute) Hypothyroidism affecting (Acute) Previous delivery affecting (Acute) Supervision of normal (Acute) s/p PPD # 2 1. routine post delivery care 2. breast feeding- support given 3. rh positive 4. rubella immune 5. home today
--- NOTE | 2019-05-31 07:57 | DCINST_ITS ---
Additional Instructions: If you experience any of the following, contact your healthcare provider. * Bleeding that soaks a pad every hour for 2 hours * Fever 100.4 or higher * Unrelieved incision or abdominal pain * Swelling, redness, discharge or bleeding from your incision or episiotomy site * Your incision begins to separate * Problems urinating (including inability to urinate or burning while urinating). * Visual changes * Severe headache * Flu-like symptoms * Pain or redness in one of both of your breasts * Pain, warmth, tenderness or swelling in your legs, especially the calf area * Frequent nausea and vomiting * Symptoms of depression or anxiety If you experience any of the following, call 911 or go to the nearest Emergency Room. * Chest pain * Problems breathing * Seizure activity * Partial or complete paralysis of a body part, slurred speech, weakness or drooping of the face, or a sudden inability to walk or hold your balance Allergies/Adverse Reactions: Allergies No Known Allergies Allergy (Verified 05/26/19 13:53) Medications to take at Discharge prenat.vits,tuyet,dax-ykad-egyjy 1 tab PO QDAY 08/19/17 thyroid (pork) 120 mg tablet 90 mg PO QDAY tab 01/18/19 Primary Care Physician: Care Physician,No Primary [Primary Care Provider] - Test Results: Test results from this visit will be discussed in further detail at your follow- up appointment, if applicable.
--- NOTE | 2019-05-31 07:57 | PCM.DCVAG ---
Additional Instructions: If you experience any of the following, contact your healthcare provider. Bleeding that soaks a pad every hour for 2 hours Fever 100.4 or higher Unrelieved incision or abdominal pain Swelling, redness, discharge or bleeding from your incision or episiotomy site Your incision begins to separate Problems urinating (including inability to urinate or burning while urinating). Visual changes Severe headache Flu-like symptoms Pain or redness in one of both of your breasts Pain, warmth, tenderness or swelling in your legs, especially the calf area Frequent nausea and vomiting Symptoms of depression or anxiety If you experience any of the following, call 911 or go to the nearest Emergency Room. Chest pain Problems breathing Seizure activity Partial or complete paralysis of a body part, slurred speech, weakness or drooping of the face, or a sudden inability to walk or hold your balance Allergies/Adverse Reactions: Allergies No Known Allergies Allergy (Verified 05/26/19 13:53) Medications to take at Discharge prenat.vits,tuyet,pph-rdfl-mpozo 1 tab PO QDAY 08/19/17 thyroid (pork) 120 mg tablet 90 mg PO QDAY tab 01/18/19 Primary Care Physician: Care Physician,No Primary [Primary Care Provider] - Test Results: Test results from this visit will be discussed in further detail at your follow-up appointment, if applicable.
[2019-05-31 09:01] VITALS: BP 130/73; PULSE 90; RESP 16; TEMP 36.3
== END 2019-05-31 10:10 | disposition home or self-care (01) | DRG 807 ==
PROVIDERS: Admitting Provider Obstetrics & Gynecology; Referring Provider Obstetrics & Gynecology; Visit Provider Obstetrics & Gynecology
DX: O34.219 Maternal care for unspecified type scar from previous cesarean delivery (principal); E03.9 Hypothyroidism, unspecified; O70.1 Second degree perineal laceration during delivery; O99.284 Endocrine, nutritional and metabolic diseases complicating childbirth; Z3A.39 39 weeks gestation of pregnancy; Z37.0 Single live birth
CPT/HCPCS: 36415; 59025; 59050; 85025; 86592; 86703; 86762; 86850; 86900; 86901; 87340; 99218; J7120; G0378

== ENCOUNTER → 2019-07-18 14:56 | Outpatient (CLI) | payer SELFPAY ==
[2019-07-18 14:42] VITALS: BMI 28.6
[2019-07-18 16:15] LABS: T4 Free Direct 1.07 ng/dL (0.76-1.46); Thyroid Stim Hormone (TSH) < 0.01 uIU/mL (0.358-3.74)
== END ==
PROVIDERS: Nurse Practitioner Women's Health; Referring Provider Obstetrics & Gynecology; Visit Provider Obstetrics & Gynecology
DX: E03.9 Hypothyroidism, unspecified (principal)
CPT/HCPCS: 36415; 84439; 84443

== ENCOUNTER 2021-05-27 09:02 | Outpatient (CLI) | payer SELFPAY ==
[2021-05-27 09:24] LABS: Absolute Lymphocyte Count 1.94 X10^3/uL (0.83-4.51); Absolute Neutrophil Count 6.6 X10^3/uL (2.0-7.7); Basophil# 0.04 X10^3/uL; Basophil% 0.4 % (0-1); Eosinophil# 0.29 X10^3/uL; Eosinophils% 3.1 % (0-5); Hematocrit 37.9 % (37-47); Hemoglobin 12.9 g/dL (12.0-15.0); Lymphocyte # 1.94 X10^3/ul (0.83-4.51); Lymphocyte % 20.7 % (19-41); Mean Corpuscular Volume 85.2 fL (81-99); Mean Platelet Vol. 9.4 fl (6.2-12.0); Monocyte# 0.46 X10^3/uL; Monocyte% 4.9 % (0-10); NRBC Flagged by Analyzer 0 % (0-5); Neutrophil # 6.63 X10^3/uL (2.7-7.7); Neutrophil % 70.6 % (47-70); Platelet Count 250 K/mm3 (150-450); RBC Distribution Width CV 12.9 % (11.6-14.6); RBC Distribution Width SD 40.2 fl (35.1-43.9); Red Blood Count 4.45 M/mm3 (4.2-5.4); White Blood Count 9.4 K/mm3 (4.4-11.0)
[2021-05-27 09:56] LABS: Rubella IgG Reactive (Nonreactive); T4 Free Direct 0.85 ng/dL (0.76-1.46); Thyroid Stim Hormone (TSH) 1.38 uIU/mL (0.358-3.74)
[2021-05-31 14:08] LABS: HPV Reflexed? NOT INDICATED
== END 2021-05-27 23:59 | disposition short-term general hospital (02) ==
PROVIDERS: Referring Provider Obstetrics & Gynecology; Visit Provider Obstetrics & Gynecology
DX: Z34.90 Encounter for supervision of normal pregnancy, unspecified, unspecified trimester (principal); Z12.4 Encounter for screening for malignant neoplasm of cervix
CPT/HCPCS: 36415; 84439; 84443; 85025; 86762; 86850; 86900; 86901; 87086; 88175; G0145

== ENCOUNTER 2021-07-01 12:30 | Outpatient (CLI) | payer SELFPAY ==
--- NOTE | 2021-07-01 12:39 | US_ITS ---
STUDY: SECOND AND THIRD TRIMESTER OBSTETRICAL ULTRASOUND REASON FOR EXAM: Female, 25 years old anatomy scan LMP: 02/06/2021. TECHNIQUE: Transabdominal and Transvaginal TECHNICAL QUALITY: Adequate. PRIOR ULTRASOUND: None. FINDINGS: There is a single intrauterine fetus. The fetus is in a transverse lie with the head on the maternal right side. There is demonstrated cardiac activity with a heart rate of 155 bpm. There is a normal amniotic fluid volume. The largest amniotic fluid pocket measures 6.74 cm. The amniotic fluid index (GRACIA) is within normal limits. The placenta is anterior in location and is not low lying. There are Grade 0 placental changes. The cervix measures 3.57 cm in length. The adnexal regions are not visualized. BIOMETRY: BPD: 5.1 cm: 21 weeks, 3 days HC: 18.62 cm: 20 weeks, 6 days AC: 15.43 cm: 20 weeks, 4 days FL: 3.73 cm: 21 weeks, 6 days CI: 81% FL/BPD: 73% FL/HC: FL/AC: 24% HC/AC: 1.21 age by current US: 20 weeks, 6 days. HARSHAD by current US: 11/12/2021. Estimated weight: 409 grams, +/- 61 grams, 72 %. Age by LMP: 20 weeks, 5 days. HARSHAD by LMP: 11/13/2021. ANATOMY: Gender: Male Cranium: Normal lateral ventricles. Normal choroid plexus. Normal cerebellum. Normal cisterna magna. Normal face, nose and lips. Chest: Normal 4-chamber heart. Abdomen/Pelvis: Normal diaphragm. Normal stomach. Normal abdominal wall. Normal cord insertion. Normal 3 vessel cord. Normal kidneys. Normal bladder. Spine: Normal cervical spine. Normal thoracic spine. Normal lumbar spine. Normal sacrum. Extremities: Normal bilateral upper extremities. Normal bilateral lower extremities. US/OB Anatomy Scan IMPRESSION: Single live intrauterine gestation with a mean gestational age of 20 weeks and 6 days. Electronically Signed: Jaziel Ralph MD at 15:39 EST ,
== END 2021-07-01 23:59 | disposition home or self-care (01) ==
PROVIDERS: Visit Provider Obstetrics & Gynecology
DX: Z34.90 Encounter for supervision of normal pregnancy, unspecified, unspecified trimester (principal)
CPT/HCPCS: 76805; 76817

== ENCOUNTER 2021-08-13 10:39 | Outpatient (CLI) | payer SELFPAY ==
[2021-08-13 11:00] LABS: Absolute Lymphocyte Count 1.88 X10^3/uL (0.83-4.51); Absolute Neutrophil Count 7.1 X10^3/uL (2.0-7.7); Basophil# 0.04 X10^3/uL; Basophil% 0.4 % (0-1); Eosinophil# 0.26 X10^3/uL; Eosinophils% 2.6 % (0-5); Hemoglobin 11.6 g/dL (12.0-15.0); Lymphocyte # 1.88 X10^3/ul (0.83-4.51); Mean Corp Hgb Conc 33.1 g/dL (32-36); Mean Corpuscular Hgb 28.9 pg (27.0-32.0); Mean Corpuscular Volume 87.3 fL (81-99); Mean Platelet Vol. 9.8 fl (6.2-12.0); Monocyte# 0.58 X10^3/uL; Monocyte% 5.9 % (0-10); NRBC Flagged by Analyzer 0 % (0-5); Neutrophil # 7.07 X10^3/uL (2.7-7.7); Neutrophil % 71.4 % (47-70); Platelet Count 234 K/mm3 (150-450); RBC Distribution Width CV 13.6 % (11.6-14.6); RBC Distribution Width SD 42.9 fl (35.1-43.9); Red Blood Count 4.01 M/mm3 (4.2-5.4); White Blood Count 9.9 K/mm3 (4.4-11.0)
[2021-08-13 11:17] LABS: Glucose Challenge Gest 1H 50g 77 mg/dL (70-140)
== END 2021-08-13 23:59 | disposition home or self-care (01) ==
PROVIDERS: Nurse Practitioner Women's Health; Referring Provider Obstetrics & Gynecology; Visit Provider Obstetrics & Gynecology
DX: Z13.1 Encounter for screening for diabetes mellitus (principal)
CPT/HCPCS: 36415; 82950; 85025

== ENCOUNTER → 2021-10-28 | Outpatient (CLI) | payer SELFPAY | END | disposition home or self-care (01) | LOC: LABSPEC 16:30 | PROVIDERS: Visit Provider Obstetrics & Gynecology | DX: O09.92 Supervision of high risk pregnancy, unspecified, second trimester (principal); Z3A.00 Weeks of gestation of pregnancy not specified | CPT/HCPCS: 87081 ==

== ENCOUNTER 2021-11-15 06:35 | Inpatient (IN) | payer SELFPAY ==
[2021-11-15] VITALS (26 sets, daily range): BP systolic 105–131; BP diastolic 60–88; PULSE 85–109; RESP 16; TEMP 36.2–37.2; O2SAT 97–100
--- NOTE | 2021-11-15 07:44 | HP.PCM.OB_ITS ---
HPI - General General Date of Admission: 11/15/21 HPI Narrative YAYA VAZQUEZ, is a 26 y/o @ 40 weeks 2 days who presents to l&D for IOL. She has a h/o emergency section followed by 2 successful deliveries. She has never required induction of labor in the past. Her chance of a successful based on ACOG calculator is 94.5%. Maternal Data Information HARSHAD Calculator Estimated Delivery Date Method Current WG Current Estimate 11/13/21 LMP (Certain) 40w 2d PFSH PFSH Medical History Hypothyroidism Home Medications prenat.vits,tuyet,vrs-srjg-ezuce 1 tab PO QDAY supplement 08/19/17 [History Last Taken 05/28/19 10:00] thyroid (pork) 120 mg tablet ([place] Thyroid) 90 mg PO QDAY thyroid 01/18/19 [History Last Taken 05/29/19 07:00] Allergy/AdvReac Type Severity Reaction Status Date / Time No Known Allergies Allergy Verified 11/12/21 11:40 Family History Brother Thyroid disorder Mother Thyroid cancer Grandmother Diabetes Sister Diabetes Other Breast cancer Surgical History S/P S/P tonsillectomy Social History adopted: No household members: family housing: house 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 Date Name GA/Weeks Outcome Route Bth Weight Infant Gen Labor Lgth Anesthesia Del Locatn Provider FOB 07/20/16 [place] 40 live - full term 7 lbs 12 oz Male Сергей Pan 12/06/17 [place] 37 live - full term 6lbs 10oz Male 8 hours none [facility] Riya Garcia 05/29/19 [place] 39 live - full term 8lbs 2oz Male [facility] Delivery Date: 07/20/16 Last Updated by: America Crabtree MD [facility], was told by not CPD Delivery Date: 12/06/17 Last Updated by: Aleshia French No issues during or delivery. Visit Details Expected Delivery Route/Plan patient counseled regarding risks/benefits of trial of labor versus repeat . ACOG/uptodate education given to patient. 94.8 % likelihood of success per calculator TOLAC consent form signed:yes Plans Covid status: non immune counseled regarding risk of covid in vs vaccination and declined vaccination Flu vaccine: declined Tdap vaccine: declined Rhogam: na LARC form signed: yes Problem list reviewed and updated with the most current plan of care details and appropriate orders placed. Relevant counseling for the gestational age provided. Continue routine care and follow up unless otherwise noted in visit notes/problem list details OB Flowsheet Initial Weight: 148 lb Date -?-?-?-?-?-?-?-?-?-?-?-?- EGA Weight BP Urine Prot -?-?-?-?-?-?-?-?-?-?-?-?- Glucose FHR FuHt Pres Dilation -?-?-?-?-?-?-?-?-?-?-?-?- Effaced St Visit Note 05/27/21 -?-?-?-?-?-?-?-?-?-?-?-?- 15w 5d 148 lb (+0 oz) 120/82 -?-?-?-?-?-?-?-?-?-?-?-?- 170 -?-?-?-?-?-?-?-?-?-?-?-?- SM- CRL cons wit h LMP 8.8cm 07/01/21 -?-?-?-?-?-?-?-?-?-?-?-?- 20w 5d 156 lb (+8 lb) 120/70 Negative -?-?-?-?-?-?-?-?-?-?-?-?- Negative 15,020 150 20 -?-?-?-?-?-?-?-?-?-?-?-?- SM- no vb lof cr amping 08/13/21 -?-?-?-?-?-?-?-?-?-?-?-?- 26w 6d 164 lb 8 oz (+16 lb 8 oz) 126/78 Negative -?-?-?-?-?-?-?-?-?-?-?-?- Negative 153 -?-?-?-?-?-?-?-?-?-?-?-?- No VB, LOF. Good Fm. 09/09/21 -?-?-?-?-?-?-?-?-?-?-?-?- 30w 5d 170 lb (+22 lb) 124/82 Negative -?-?-?-?-?-?-?-?-?-?-?-?- Negative 150 30 -?-?-?-?-?-?-?-?-?-?-?-?- SM- no vb lof go od fm no regular ctx 10/03/21 -?-?-?-?-?-?-?-?-?--?-?-?- 34w 1d 173 lb (+25 lb) 92/80 Negative -?-?-?-?-?-?-?-?-?-?-?-?- Negative 144 34 Breech -?-?-?-?-?-?-?-?-?-?-?-?- JV- no lof, vagi nal bleeding, or dec fm. breech on exam today. we discussed the possibility of ordering a formal scan if still breech next visit. 10/14/21 -?-?-?-?-?-?-?-?-?-?-?-?- 35w 5d 175 lb (+27 lb) 124/66 Negative -?-?-?-?-?-?-?-?-?-?-?-?- Negative 140 35 Cephalic -?-?-?-?-?-?-?-?-?-?-?-?- SM- no vb lof go od fm no regular ctx 10/28/21 -?-?-?-?-?-?-?-?-?-?-?-?- 37w 5d 179 lb 4 oz (+31 lb 4 oz) 100/64 Negative -?-?-?-?--?-?-?-?-?-?-?-?- Negative 145 36 Cephalic 0 -?-?-?-?-?-?-?-?-?-?-?-?- JV- no contracti ons yet, GBS collected. vtx on ultrasound today 11/06/21 -?-?-?-?-?-?-?-?-?-?-?-?- 39w 0d 180 lb (+32 lb) 110/84 Negative -?-?-?-?-?-?-?-?-?-?-?-?- Negative 145 38 Cephalic 0 -?-?-?-?-?-?--?-?-?-?-?-?- -4 JV- no c ontractions or dilation yet. Vtx on ultrasound, head not engaged. wants to continue to wait for spontaneous labor. will discuss more next visit. 11/12/21 -?-?-?-?-?-?-?-?-?-?-?-?- 39w 6d 181 lb (+33 lb) 110/80 Negative -?-?-?-?-?-?-?-?-?-?-?-?- Negative 150 39 Cephalic 2 .5 -?-?-?-?-?-?-?-?-?-?-?-?- 50 -3 JV- no com plaints today. pt is still not interested induction yet. risks of being past 41 weeks with prior scar discussed. She will talk with he r and call us back with a decision. 11/15/21 -?-?-?-?-?-?-?-?-?-?-?-?- 40w 2d 180 lb 12.465 oz (+32 lb 12.465 oz) 122/88 -?-?-?-?-?-?--?-?-?-?-?-?- -?-?-?-?-?-?-?-?-?-?-?-?- NST FHR Rate Baby A Baseline: 150 Variability:: Moderate Accelerations:: 15 x 15 Decelerations:: None FHR Category:: Category I Uterine Activity:: no contractions ROS Constitutional Constitutional: Denies change in weight, fatigue, fever(s), headache(s), poor appetite or weakness Eyes Eyes: Denies blurry vision, change in vision, seeing flashes or spots in vision ENT HEENT: Denies dizziness, headache(s), loss taste/smell or sore throat Cardiovascular Cardiovascular: Denies chest pain, dizziness, dyspnea, irregular heart rhythm, leg edema, palpitations, rapid heart rate or vomiting Respiratory/Chest Respiratory/Chest: Denies chest tightness, cough, dyspnea or breast pain Gastrointestinal Gastrointestinal: Denies abdominal pain, anorexia, constipation, cramping, diarrhea, hemorrhoids, vomiting or weight changes Genitourinary Genitourinary: Denies dysuria, flank pain, genital lesions, genital pain, urinary frequency or urinary urgency Musculoskeletal Musculoskeletal: Denies back pain, difficulty walking, joint pain, limited range of motion, muscle cramps or numbness Integumentary Integumentary: Denies lesions or unusual bruising Neurologic Neurologic: Denies abnormal movements, abnormal speech, dizziness, numbness, seizure-like activity or syncope Psychiatric Psychiatric: Denies anxiety, behavioral changes, change in appetite, change in l ibido, cognitive impairment, confusion, depression, difficulty concentrating, hallucinations or suicidal thoughts Endocrine Endocrinology: Denies excessive sweating, polydipsia or polyuria Hematologic/Lymphatic Hematologic/Lymphatic: Denies easy bleeding, easy bruising or lymphadenopathy Allergic/Immunologic Allergic/Immunologic: Denies itchy eyes, lip swelling, seasonal rhinorrhea, rhinitis, throat swelling, tongue swelling, eczemia, wheezing or asthma Vital Signs Vital Signs Vital Signs: 11/15/21 07:32 11/15/21 07:32 11/15/21 07:32 Temperature Temperature Source Temporal Pulse Rate 106 H Blood Pressure 122/88 H BP Systolic 122 BP Diastolic 88 Pulse Ox 11/15/21 07:32 11/15/21 07:32 Temperature 97.5 F L Temperature Source Pulse Rate Blood Pressure BP Systolic BP Diastolic Pulse Ox 98 Weight Weight: 180 lb 12.465 oz Body Mass Index (BMI) 30.0 Physical Exam Const alert, oriented x3, no apparent distress and healthy appearing General Appearance: cooperative; Negative for anxious HEENT normocephalic Face and Sinus: normal facial exam Eyes EOMs intact bilaterally and no scleral icterus General Eye: normal appearance of both eyes Neck full ROM and supple Lymph Lymphatic: no lymphadenopathy noted Chest Chest: abnormal inspection of the chest Resp normal respiratory effort Effort and Inspection: able to speak in complete sentences Cardio regular rate GI soft to palpation and non-tender Inspection: gravid Palpation: soft; Negative for tender external exam normal Amniotic Fluid: ROM+plus Back/Spine no CVA tenderness Extremity normal to inspection, full ROM and no clubbing, cyanosis or edema General Extremity: Negative for calf tenderness or edema Skin Lesions: no lesions Rashes: no rashes Psych mental status grossly normal Labs Labs Labs: Blood Type A POSITIVE Antibody Screen NEGATIVE Hct 35.0 % (37-47) L Hgb 11.6 g/dL (12.0-15.0) L Obstetrics US Rubella IgG Antibody Reactive (Nonreactive) Hep Bs Antigen Non-Reactive (Nonreactive) HIV 1&2 Antibody Non-Reactive (Nonreactive) Glucose 1 Hr 50 gm 77 mg/dL (70-140) Group B Strep DNA Negative (Negative) Rhogam given: No Assessment & Plan (1) Family history of cleft palate: COMMENT: 's sister. (2) : QUALIFIERS: Weeks of gestation: 39 weeks Qualified Code(s): Z3A.39 - 39 weeks gestation of COMMENT: GBS neg. SP labs drawn. dec STD testing, agrees to have done at . declines genetic, carrier, and ntd screening. Anatomy US normal (3) Previous delivery affecting : COMMENT: x 2 (4) Supervision of high-risk : QUALIFIERS: Trimester: second trimester Qualified Code(s): O09.92 - Supervision of high risk , unspecified, second trimester COMMENT: PRR(SP) HARSHAD 11/13/21 Yazan Peguero jonathan Jose (5) Hypothyroid: QUALIFIERS: Hypothyroidism type: unspecified Qualified Code(s): E03.9 - Hypothyroidism, unspecified COMMENT: armor thyroid replacement. tsh q trimester- NL TSH PLAN: Plan Patient presents IOL, plan management for with pitocin/AROM. Pain management: plans no epidural, however she is open to it if needed as this is her first induction GBS negative. Management of any complications: none I have reviewed the [facility] and made any clinically relevant updates.
[2021-11-15] MEDS: Lactated Ringers 1,000 ML 50 ML IV (07:45)
[2021-11-15 08:09] LABS: Absolute Lymphocyte Count 1.75 X10^3/uL (0.83-4.51); Absolute Neutrophil Count 7.2 X10^3/uL (2.0-7.7); Basophil# 0.05 X10^3/uL; Basophil% 0.5 % (0-1); Eosinophil# 0.17 X10^3/uL; Eosinophils% 1.7 % (0-5); Hematocrit 37.8 % (37-47); Hemoglobin 12.4 g/dL (12.0-15.0); Lymphocyte # 1.75 X10^3/ul (0.83-4.51); Lymphocyte % 17.3 % (19-41); Mean Corp Hgb Conc 32.8 g/dL (32-36); Mean Corpuscular Hgb 28.9 pg (27.0-32.0); Mean Corpuscular Volume 88.1 fL (81-99); Mean Platelet Vol. 10.1 fl (6.2-12.0); Monocyte# 0.75 X10^3/uL; Monocyte% 7.4 % (0-10); NRBC Flagged by Analyzer 0 % (0-5); Neutrophil # 7.24 X10^3/uL (2.7-7.7); Neutrophil % 71.6 % (47-70); Platelet Count 226 K/mm3 (150-450); RBC Distribution Width CV 13.2 % (11.6-14.6); RBC Distribution Width SD 42.3 fl (35.1-43.9); Red Blood Count 4.29 M/mm3 (4.2-5.4); White Blood Count 10.1 K/mm3 (4.4-11.0)
[2021-11-15] MEDS: Oxytocin 30 units/NS 500 ml 30 UNITS/500 ML IV.SOLN IV (08:45)
[2021-11-15 08:55] LABS: Syphilis Antibodies Non-reactive
[2021-11-15 09:16] LABS: HIV - WCH Non-Reactive (Nonreactive); Hepatitis B Surface Antigen Non-Reactive (Nonreactive); Hepatitis C Antibody Non-Reactive (Nonreactive)
[2021-11-15 10:23] LABS: Chlamydia Trachomatis by PCR Negative (Negative); Neisserai gonorrhoeae by PCR Negative (Negative); Probe Check PASS; Sample Adequacy Control PASS; Specimen Processing Control PASS
--- NOTE | 2021-11-15 10:26 | NURSING ---
1015 patient here this am for pitocin induction of labor for post dates, TOLAC. Consent form signed upon admission, Charge nurse, nursery nurse, anesthesia, aware at morning huddle.
[2021-11-15] MEDS: LACTATED RINGERS 500 ML 999 ML IV (14:28)
[2021-11-15] MEDS: Oxytocin 30 units/NS 500 ml 30 UNITS/500 ML IV.SOLN 334 UNITS IV (15:12)
--- NOTE | 2021-11-15 16:57 | EX.PCM.OBRPT ---
Assessment & Plan (1) Family history of cleft palate: COMMENT: 's sister. (2) : QUALIFIERS: Weeks of gestation: 39 weeks Qualified Code(s): Z3A.39 - 39 weeks gestation of COMMENT: GBS neg. SP labs drawn. dec STD testing, agrees to have done at . declines genetic, carrier, and ntd screening. Anatomy US normal (3) Previous delivery affecting : COMMENT: x 2 (4) Supervision of high-risk : QUALIFIERS: Trimester: second trimester Qualified Code(s): O09.92 - Supervision of high risk , unspecified, second trimester COMMENT: PRR(SP) HARSHAD 11/13/21 Yazan Peguero jonathan Jose (5) Hypothyroid: QUALIFIERS: Hypothyroidism type: unspecified Qualified Code(s): E03.9 - Hypothyroidism, unspecified COMMENT: armor thyroid replacement. tsh q trimester- NL TSH Maternal Data Information HARSHAD Calculator Estimated Delivery Date Method Current WG Current Estimate 11/13/21 LMP (Certain) 40w 2d Vaginal Delivery Maternal Presentation Maternal Presentation: Elective Induction Type of Induction: Pitocin and Amniotomy Operative Information Date of Procedure: 11/15/21 Pre-Operative Diagnosis: 40 weeks 2 days, , history of section, desires Post-Operative Diagnosis: 40 weeks 2 days, , history of section, desires Surgery / Procedure Performed: Spontaneous Vaginal Delivery Type of Anesthesia: None Estimated Blood Loss: 300cc Findings Description of Procedure: Patient began pushing and delivered the head in the RANDOLPH presentation. The head was delivered atraumatically. The anterior and posterior shoulders delivered without complication followed by the rest of the and the was placed on the maternal abdomen. Delayed cord clamping was employed for approximately 60 seconds. Cord was clamped and cut and gentle traction was applied to the cord and the placenta delivered spontaneously immediately following it was noted to be intact with three-vessel cord. The perineum and vagina were inspected and noted to have a second degree laceration. This was repaired using a 3-0 vicryl rapide. EBL was 300cc. Patient and infant tolerated delivery well. Presentation: Vertex Amniotic Membrane Rupture Type: Artificial Amniotic Fluid Description: Clear Placental Delivery Description: Spontaneous Placenta Disposition: [facility] Cord Vessel Description: 3 Vessels Cord Entanglement: None A Gender: Male (1 minute): 8 (5 minute): 9 Delayed Cord Clamping: Yes Post Vaginal Delivery Medications Given After Delivery: IV Pitocin Episiotomy Description: None Laceration: 2nd degree Complication Complications: None Multi Select Codes Urinary/Genital Urinary/Genital CPT Codes: 07390 [facility]
[2021-11-15] MEDS: 0.9% Saline Lock 10 ML Syringe IV (17:42)
[2021-11-15] MEDS: Ibuprofen 600 MG Tablet PO (18:10)
--- NOTE | 2021-11-15 18:37 | HP.PCM.NUR_ITS ---
Subjective Subjective: This is a male born on [birth year] at 1506, a product of a 40 2/7 weeks gestation , born to a 28 y/o (now P4) by after successful . Mother has a history of hypothyroidism. otherwise uncomplicated. Maternal medications during : thyroid extract ([place]) and vitamins. Mother denies any alcohol, tobacco, or other drug use during the . Maternal serologies: Gonorrhea neg, chlamydia neg, RPR non-reactive, rubella immune, hepatitis B neg, hepatitis C neg, HIV neg. GBS neg. Maternal blood type A+, antibody neg. Artificial rupture of membranes to clear fluid at 1257 (2 hours prior to delivery). Infant presented as vertex. Apgars were and [] at 1 and 5 minutes, respectively. Birthweight [] g, []GA. Mother intends to [] feed. [] receive erythromycin eye ointment, Vit K shot, and Hepatitis B vaccine. [Parents desire circumcision]. [employer] will be []. Objective Objective Data: 11/15/21 07:32 11/15/21 07:32 11/15/21 07:32 Temperature Temperature Source Temporal Pulse Rate 106 H Blood Pressure 122/88 H BP Systolic 122 BP Diastolic 88 Pulse Ox 11/15/21 07:32 11/15/21 07:32 11/15/21 09:24 Temperature 97.5 F L Temperature Source Pulse Rate Blood Pressure 126/82 H BP Systolic 126 BP Diastolic 82 Pulse Ox 98 11/15/21 09:24 11/15/21 11:27 11/15/21 11:27 Temperature Temperature Source Temporal Pulse Rate 87 Blood Pressure 123/88 H BP Systolic 123 BP Diastolic 88 Pulse Ox 11/15/21 11:27 11/15/21 11:27 11/15/21 11:27 Temperature 97.6 F L Temperature Source Pulse Rate 93 Blood Pressure BP Systolic BP Diastolic Pulse Ox 98 11/15/21 13:00 11/15/21 13:00 11/15/21 13:00 Temperature Temperature Source Temporal Pulse Rate 85 Blood Pressure 118/78 BP Systolic 118 BP Diastolic 78 Pulse Ox 11/15/21 13:00 11/15/21 14:07 11/15/21 14:07 Temperature 97.2 F L Temperature Source Pulse Rate 105 H Blood Pressure 123/60 H BP Systolic 123 BP Diastolic 60 Pulse Ox 11/15/21 14:07 11/15/21 14:07 11/15/21 15:13 Temperature 98.0 F Temperature Source Temporal Pulse Rate Blood Pressure 123/69 H BP Systolic 123 BP Diastolic 69 Pulse Ox 11/15/21 15:13 11/15/21 15:28 11/15/21 15:28 Temperature Temperature Source Pulse Rate 104 H 106 H Blood Pressure 125/64 H BP Systolic 125 BP Diastolic 64 Pulse Ox 11/15/21 15:43 11/15/21 15:43 11/15/21 15:58 Temperature Temperature Source Pulse Rate 100 Blood Pressure 118/61 110/61 BP Systolic 118 110 BP Diastolic 61 61 Pulse Ox 11/15/21 15:58 11/15/21 15:43 11/15/21 16:04 Temperature Temperature Source Temporal Pulse Rate 109 H 109 H Blood Pressure BP Systolic BP Diastolic Pulse Ox 11/15/21 16:04 11/15/21 15:58 11/15/21 16:09 Temperature Temperature Source Pulse Rate 100 Blood Pressure BP Systolic BP Diastolic Pulse Ox 100 100 11/15/21 16:09 11/15/21 16:13 11/15/21 16:13 Temperature Temperature Source Pulse Rate 94 Blood Pressure 105/61 BP Systolic 105 BP Diastolic 61 Pulse Ox 100 11/15/21 16:14 11/15/21 16:14 11/15/21 16:13 Temperature Temperature Source Temporal Pulse Rate 98 Blood Pressure BP Systolic BP Diastolic Pulse Ox 100 11/15/21 16:13 11/15/21 16:13 11/15/21 16:19 Temperature 98.7 F Temperature Source Pulse Rate 100 Blood Pressure BP Systolic BP Diastolic Pulse Ox 100 11/15/21 16:19 11/15/21 16:24 11/15/21 16:24 Temperature Temperature Source Pulse Rate 96 Blood Pressure BP Systolic BP Diastolic Pulse Ox 100 100 11/15/21 16:29 11/15/21 16:29 11/15/21 16:29 Temperature Temperature Source Pulse Rate 100 102 H Blood Pressure 115/74 BP Systolic 115 BP Diastolic 74 Pulse Ox 11/15/21 16:29 11/15/21 16:34 11/15/21 16:34 Temperature Temperature Source Pulse Rate 97 Blood Pressure BP Systolic BP Diastolic Pulse Ox 100 100 11/15/21 16:29 11/15/21 16:39 11/15/21 16:39 Temperature Temperature Source Pulse Rate 101 H Blood Pressure BP Systolic BP Diastolic Pulse Ox 99 99 11/15/21 16:43 11/15/21 16:43 11/15/21 16:44 Temperature Temperature Source Pulse Rate 105 H 100 Blood Pressure 115/65 BP Systolic 115 BP Diastolic 65 Pulse Ox 11/15/21 16:44 11/15/21 16:43 11/15/21 16:43 Temperature Temperature Source Temporal Pulse Rate Blood Pressure BP Systolic BP Diastolic Pulse Ox 100 100 11/15/21 16:43 11/15/21 16:49 11/15/21 16:49 Temperature 99.0 F Temperature Source Pulse Rate 104 H Blood Pressure BP Systolic BP Diastolic Pulse Ox 100 11/15/21 16:54 11/15/21 16:54 11/15/21 16:58 Temperature Temperature Source Pulse Rate 103 H Blood Pressure 131/69 H BP Systolic 131 BP Diastolic 69 Pulse Ox 100 11/15/21 16:58 11/15/21 16:59 11/15/21 16:59 Temperature Temperature Source Pulse Rate 90 106 H Blood Pressure BP Systolic BP Diastolic Pulse Ox 99 11/15/21 16:58 11/15/21 16:58 11/15/21 16:58 Temperature 99.0 F Temperature Source Temporal Pulse Rate Blood Pressure BP Systolic BP Diastolic Pulse Ox 100 Weight: 82 kg Vital Signs Temp Pulse BP Pulse Ox 11/15/21 16:58 99.0 F 11/15/21 16:58 100 11/15/21 16:59 99 11/15/21 16:59 106 H 11/15/21 16:58 90 11/15/21 16:58 131/69 H 11/15/21 16:54 100 11/15/21 16:54 103 H 11/15/21 16:49 100 11/15/21 16:49 104 H 11/15/21 16:43 99.0 F 11/15/21 16:43 100 11/15/21 16:44 100 11/15/21 16:44 100 11/15/21 16:43 105 H 11/15/21 16:43 115/65 11/15/21 16:39 99 11/15/21 16:39 101 H 11/15/21 16:29 99 11/15/21 16:34 100 11/15/21 16:34 97 11/15/21 16:29 100 11/15/21 16:29 102 H 11/15/21 16:29 100 11/15/21 16:29 115/74 11/15/21 16:24 100 11/15/21 16:24 96 11/15/21 16:19 100 11/15/21 16:19 100 11/15/21 16:13 98.7 F 11/15/21 16:13 100 11/15/21 16:14 100 11/15/21 16:14 98 11/15/21 16:13 94 11/15/21 16:13 105/61 11/15/21 16:09 100 11/15/21 16:09 100 11/15/21 15:58 100 11/15/21 16:04 100 11/15/21 16:04 109 H 11/15/21 15:58 109 H 11/15/21 15:58 110/61 11/15/21 15:43 100 11/15/21 15:43 118/61 11/15/21 15:28 106 H 11/15/21 15:28 125/64 H 11/15/21 15:13 104 H 11/15/21 15:13 123/69 H 11/15/21 14:07 98.0 F 11/15/21 14:07 105 H 11/15/21 14:07 123/60 H 11/15/21 13:00 97.2 F L 11/15/21 13:00 85 11/15/21 13:00 118/78 11/15/21 11:27 97.6 F L 11/15/21 11:27 98 11/15/21 11:27 93 11/15/21 11:27 123/88 H 11/15/21 09:24 87 11/15/21 09:24 126/82 H 11/15/21 07:32 97.5 F L 11/15/21 07:32 98 11/15/21 07:32 106 H 11/15/21 07:32 122/88 H Lab tests last 48H 11/15/21 11/15/21 11/15/21 07:45 07:45 07:45 WBC 10.1 RBC 4.29 Hgb 12.4 Hct 37.8 MCV 88.1 MCH 28.9 MCHC 32.8 RDW Std Deviation 42.3 RDW Coeff of Roxy 13.2 Plt Count 226 MPV 10.1 Immature Gran % (Auto) 1.500 H Neut % (Auto) 71.6 H Lymph % (Auto) 17.3 L Parker % (Auto) 7.4 Eos % (Auto) 1.7 Baso % (Auto) 0.5 Absolute Neuts (auto) 7.2 Absolute Lymphs (auto) 1.75 Nucleated RBC % 0 Syphilis Total Ab Non-reactive Chlam trachomat DNA PCR Hep Bs Antigen Hepatitis C Antibody HIV 1&2 Antibody N.gonorrhoeae DNA (PCR) Group B Strep DNA Specimen Comment Blood Type A POSITIVE Antibody Screen NEGATIVE 11/15/21 11/15/21 07:45 08:20 WBC RBC Hgb Hct MCV MCH MCHC RDW Std Deviation RDW Coeff of Roxy Plt Count MPV Immature Gran % (Auto) Neut % (Auto) Lymph % (Auto) Parker % (Auto) Eos % (Auto) Baso % (Auto) Absolute Neuts (auto) Absolute Lymphs (auto) Nucleated RBC % Syphilis Total Ab Chlam trachomat DNA PCR Negative Hep Bs Antigen Non-Reactive Hepatitis C Antibody Non-Reactive HIV 1&2 Antibody Non-Reactive N.gonorrhoeae DNA (PCR) Negative Group B Strep DNA Pending Specimen Comment Not Reportable Blood Type Antibody Screen Micro - Preliminary and Final Results 11/15/21 10:30 SARS-CoV-2 Antigen (Rapid) - Final Nasal Secretion Delivery/Maternal Data Labor/Delivery Amniotic fluid color at rupture: Clear Vacuum Extraction: N/A presentation: Cephalic Maternal Data RPR/VDRL/Syphilis: Nonreactive HbSAg: Negative Hepatitis C: Negative HIV/AIDS: Non-Reactive Rubella status: Immune Gonorrhea: Negative Chlamydia: Negative Group B Strep:: Negative Gestational Diabetes: No Vital Signs Vital Signs Vital Signs: 11/15/21 07:32 11/15/21 07:32 11/15/21 07:32 Temperature Temperature Source Temporal Pulse Rate 106 H Blood Pressure 122/88 H BP Systolic 122 BP Diastolic 88 Pulse Ox 11/15/21 07:32 11/15/21 07:32 11/15/21 09:24 Temperature 97.5 F L Temperature Source Pulse Rate Blood Pressure 126/82 H BP Systolic 126 BP Diastolic 82 Pulse Ox 98 11/15/21 09:24 11/15/21 11:27 11/15/21 11:27 Temperature Temperature Source Temporal Pulse Rate 87 Blood Pressure 123/88 H BP Systolic 123 BP Diastolic 88 Pulse Ox 11/15/21 11:27 11/15/21 11:27 11/15/21 11:27 Temperature 97.6 F L Temperature Source Pulse Rate 93 Blood Pressure BP Systolic BP Diastolic Pulse Ox 98 11/15/21 13:00 11/15/21 13:00 11/15/21 13:00 Temperature Temperature Source Temporal Pulse Rate 85 Blood Pressure 118/78 BP Systolic 118 BP Diastolic 78 Pulse Ox 11/15/21 13:00 11/15/21 14:07 11/15/21 14:07 Temperature 97.2 F L Temperature Source Pulse Rate 105 H Blood Pressure 123/60 H BP Systolic 123 BP Diastolic 60 Pulse Ox 11/15/21 14:07 11/15/21 14:07 11/15/21 15:13 Temperature 98.0 F Temperature Source Temporal Pulse Rate Blood Pressure 123/69 H BP Systolic 123 BP Diastolic 69 Pulse Ox 11/15/21 15:13 11/15/21 15:28 11/15/21 15:28 Temperature Temperature Source Pulse Rate 104 H 106 H Blood Pressure 125/64 H BP Systolic 125 BP Diastolic 64 Pulse Ox 11/15/21 15:43 11/15/21 15:43 11/15/21 15:58 Temperature Temperature Source Pulse Rate 100 Blood Pressure 118/61 110/61 BP Systolic 118 110 BP Diastolic 61 61 Pulse Ox 11/15/21 15:58 11/15/21 15:43 11/15/21 16:04 Temperature Temperature Source Temporal Pulse Rate 109 H 109 H Blood Pressure BP Systolic BP Diastolic Pulse Ox 11/15/21 16:04 11/15/21 15:58 11/15/21 16:09 Temperature Temperature Source Pulse Rate 100 Blood Pressure BP Systolic BP Diastolic Pulse Ox 100 100 11/15/21 16:09 11/15/21 16:13 11/15/21 16:13 Temperature Temperature Source Pulse Rate 94 Blood Pressure 105/61 BP Systolic 105 BP Diastolic 61 Pulse Ox 100 11/15/21 16:14 11/15/21 16:14 11/15/21 16:13 Temperature Temperature Source Temporal Pulse Rate 98 Blood Pressure BP Systolic BP Diastolic Pulse Ox 100 11/15/21 16:13 11/15/21 16:13 11/15/21 16:19 Temperature 98.7 F Temperature Source Pulse Rate 100 Blood Pressure BP Systolic BP Diastolic Pulse Ox 100 11/15/21 16:19 11/15/21 16:24 11/15/21 16:24 Temperature Temperature Source Pulse Rate 96 Blood Pressure BP Systolic BP Diastolic Pulse Ox 100 100 11/15/21 16:29 11/15/21 16:29 11/15/21 16:29 Temperature Temperature Source Pulse Rate 100 102 H Blood Pressure 115/74 BP Systolic 115 BP Diastolic 74 Pulse Ox 11/15/21 16:29 11/15/21 16:34 11/15/21 16:34 Temperature Temperature Source Pulse Rate 97 Blood Pressure BP Systolic BP Diastolic Pulse Ox 100 100 11/15/21 16:29 11/15/21 16:39 11/15/21 16:39 Temperature Temperature Source Pulse Rate 101 H Blood Pressure BP Systolic BP Diastolic Pulse Ox 99 99 11/15/21 16:43 11/15/21 16:43 11/15/21 16:44 Temperature Temperature Source Pulse Rate 105 H 100 Blood Pressure 115/65 BP Systolic 115 BP Diastolic 65 Pulse Ox 11/15/21 16:44 11/15/21 16:43 11/15/21 16:43 Temperature Temperature Source Temporal Pulse Rate Blood Pressure BP Systolic BP Diastolic Pulse Ox 100 100 11/15/21 16:43 11/15/21 16:49 11/15/21 16:49 Temperature 99.0 F Temperature Source Pulse Rate 104 H Blood Pressure BP Systolic BP Diastolic Pulse Ox 100 11/15/21 16:54 11/15/21 16:54 11/15/21 16:58 Temperature Temperature Source Pulse Rate 103 H Blood Pressure 131/69 H BP Systolic 131 BP Diastolic 69 Pulse Ox 100 11/15/21 16:58 11/15/21 16:59 11/15/21 16:59 Temperature Temperature Source Pulse Rate 90 106 H Blood Pressure BP Systolic BP Diastolic Pulse Ox 99 11/15/21 16:58 11/15/21 16:58 11/15/21 16:58 Temperature 99.0 F Temperature Source Temporal Pulse Rate Blood Pressure BP Systolic BP Diastolic Pulse Ox 100 Weight Weight: 82 kg Body Mass Index (BMI) 30.0 General Weight: 82 kg alert, active, no apparent distress, well developed and responsive to exam HEENT Yes normocephalic, anterior fontanel Yes soft and flat and sutures normal Eyes: red reflex present bilaterally and conjunctiva normal Ears: Yes external ears normal and Yes neutral position Nose: Yes external nose normal, nares normal and no nasal discharge Oropharynx: Yes oral and palatal mucosa normal Neck Neck: full ROM and supple Respiratory Respiratory: normal respiratory effort, clear to auscultation bilaterally and expiratory phase normal Cardiovascular Yes regular rate, regular rhythm, no murmurs, normal capillary refill and femoral pulses present Abdomen normal to inspection, nondistended, normoactive bowel sounds, soft to palpation, non-tender, no hepatosplenomegaly and no masses 3 Vessels external exam normal and appearance of the vagina normal Musculoskeletal full ROM, hip exam without evidence of dislocation or instability and clavicles intact Neurological normal suck, rooting, and erma reflexes, muscle tone normal and moving extremities equally Skin normal color and no rashes or lesions noted
[2021-11-16 00:35] VITALS: BP 113/75; PULSE 78; RESP 16; TEMP 36.4; O2SAT 96
[2021-11-16 04:37] VITALS: BP 110/72; PULSE 64; RESP 18; TEMP 36.4; O2SAT 98
[2021-11-16 08:59] VITALS: BP 132/82; PULSE 65; RESP 16; TEMP 36.3
--- NOTE | 2021-11-16 10:03 | PCM.PN.OB ---
Subjective Subjective Patient doing well without complaints. Tolerating PO. Ambulating and voiding without difficulty. Feeding well. Denies chest pain, shortness of breath, calf pain/swelling, fevers, chills, lightheadedness. Objective Data Objective Data Vital Signs: Vital Signs Temp Pulse Resp BP Pulse Ox 97.4 F L 65 16 132/82 H 98 11/16/21 08:59 11/16/21 08:59 11/16/21 08:59 11/16/21 08:59 11/16/21 04:37 Oxygen Delivery Method Room Air Weight: 180 lb 12.465 oz Body Mass Index (BMI) 30.0 Intake & Output: Intake and Output for Last 24 Hours 11/14/21 11/15/21 11/16/21 23:59 23:59 23:59 Intake Total 1367.16 / 1367.16 Output Total 1300 / 1300 Balance 67.16 / 67.16 Lab / Micro Data Result Diagrams: 11/15/21 07:45 Labs: Laboratory Results - last 24 hr 11/15/21 08:20: Chlam trachomat DNA PCR Negative, N.gonorrhoeae DNA (PCR) Negative, Specimen Comment Not Reportable Micro: Microbiology 11/15/21 10:30 Nasal Secretion SARS-CoV-2 Antigen (Rapid) - Final ROS Constitutional Constitutional: Denies chills, fatigue, fever(s), poor appetite or weakness Eyes Eyes: Denies blurry vision, change in vision, seeing flashes or spots in vision ENT HEENT: Denies dizziness, headache(s), loss taste/smell or sore throat Cardiovascular Cardiovascular: Denies chest pain, dizziness, dyspnea, irregular heart rhythm, palpitations or rapid heart rate Respiratory/Chest Respiratory/Chest: Denies chest tightness, cough, dyspnea or breast pain Gastrointestinal Gastrointestinal: Denies abdominal pain, constipation or vomiting Genitourinary Genitourinary: Denies dysuria or flank pain Musculoskeletal Musculoskeletal: Denies difficulty walking, joint pain, limited range of motion or numbness Neurologic Neurologic: Denies abnormal movements, abnormal speech, dizziness, numbness, seizure-like activity or syncope Psychiatric Psychiatric: Denies anxiety, behavioral changes, change in appetite, confusion, depression or suicidal thoughts Physical Exam Const alert, oriented x3 and no apparent distress General Appearance: cooperative and comfortable Resp normal respiratory effort Cardio regular rate GI normal to inspection, nondistended, normoactive bowel sounds GI Narrative: uterus is firm below umbilicus Palpation: soft Back/Spine no CVA tenderness and thoraco-lumbar ROM normal Extremity normal to inspection, no clubbing, cyanosis or edema, no calf tenderness and no pedal edema Psych mental status grossly normal, thought process normal, cooperative, affect normal, speech normal, activity/motor behavior normal, denies homicidal ideation and denies suicidal ideation Assessment & Plan (1) Status post vaginal delivery: COMMENT: successful 11/15/21- bb boy Dom- JONES PLAN: Plan s/p PPD # 1 1. routine post delivery care 2. breast feeding- support given 3. rh positive 4. rubella immune 5. plan for dc to home tomorrow
--- NOTE | 2021-11-16 10:05 | PCM.DC ---
Discharge Instructions Diet Discharge Diet: No restrictions Activity Discharge Activity: Return to Normal Activity, May Not Drive (while taking narcotic pain medications.) and May Shower May resume sexual activity in: 4-6 weeks Dressing / Incision Call your doctor if your incision/area has: Continuous Slow Oozing, Sudden Increased Bleeding, Increased Pain/ Swelling, Increased Redness and Foul Smelling Discharge Follow Up Care Please Follow Up With: Adela Delgado DO When: Call [phone] to make an appointment with your doctor in 6 weeks. If you had elevated blood pressure or 4th degree laceration, you will need to be seen in 2 weeks. Test Results: Test results from this visit will be discussed in further detail at your follow-up appointment, if applicable. Discharge Plan Admission Admit Date/Time: 11/15/21 06:35 Primary Reason for Your Visit: vaginal delivery Attending Provider: America Crabtree Primary Care Provider: Care Physician,No Primary Consulting Providers: Adela Delgado Discharge Orders/Prescriptions Prescriptions: No Action prenat.vits,tuyet,cef-bhav-lvntu tablet 1 tab PO QDAY thyroid (pork) [[place] Thyroid] 120 mg tablet 90 mg PO QDAY Referrals / Follow Up: Care Physician,No Primary [Primary Care Provider] - Disposition Disposition (needs filled in before D/C Order can be placed): Home, Self Care
[2021-11-16 12:47] VITALS: BP 109/77; PULSE 73; RESP 16; TEMP 36.5
[2021-11-16 16:10] VITALS: BP 116/82; PULSE 86; RESP 14; TEMP 36.4; O2SAT 97
[2021-11-16 21:14] VITALS: BP 117/73; PULSE 77; RESP 16; TEMP 36.7; O2SAT 98
[2021-11-17 02:05] VITALS: BP 116/71; PULSE 62; RESP 16; TEMP 36.6; O2SAT 98
[2021-11-17 08:31] VITALS: BP 124/67; PULSE 81; RESP 15; TEMP 36.5
--- NOTE | 2021-11-17 08:31 | PN.OBGYN_ITS ---
Subjective Subjective Patient doing well without complaints. Tolerating PO. Ambulating and voiding without difficulty. Feeding well. Denies chest pain, shortness of breath, calf pain/swelling, fevers, chills, lightheadedness. Objective Data Objective Data Vital Signs: Vital Signs Temp Pulse Resp BP Pulse Ox 97.9 F 62 16 116/71 98 11/17/21 02:05 11/17/21 02:05 11/17/21 02:05 11/17/21 02:05 11/17/21 02:05 Oxygen Delivery Method Room Air Weight: 180 lb 12.465 oz Body Mass Index (BMI) 30.0 Intake & Output: Intake and Output for Last 24 Hours 11/15/21 11/16/21 11/17/21 23:59 23:59 23:59 Intake Total 1367.16 / 1367.16 Output Total 1300 / 1300 Balance 67.16 / 67.16 Lab / Micro Data Result Diagrams: 11/15/21 07:45 Labs: Laboratory Results - last 24 hr 11/15/21 08:20: Group B Strep DNA Cancelled, Specimen Comment Cancelled Micro: Microbiology 11/15/21 10:30 Nasal Secretion SARS-CoV-2 Antigen (Rapid) - Final ROS Constitutional Constitutional: Denies change in weight, chills, fatigue, fever(s), headache(s), poor appetite or weakness Eyes Eyes: Denies blurry vision, change in vision, seeing flashes or spots in vision ENT HEENT: Denies dizziness, headache(s), loss taste/smell or sore throat Cardiovascular Cardiovascular: Denies chest pain, dizziness, dyspnea, irregular heart rhythm, leg edema, palpitations, rapid heart rate or vomiting Respiratory/Chest Respiratory/Chest: Denies chest tightness, cough, dyspnea or breast pain Gastrointestinal Gastrointestinal: Denies abdominal pain, anorexia, constipation, cramping, diarrhea, hemorrhoids, vomiting or weight changes Genitourinary Genitourinary: Denies dysuria, flank pain, genital lesions, genital pain, urinary frequency or urinary urgency Musculoskeletal Musculoskeletal: Denies back pain, difficulty walking, joint pain, limited range of motion, muscle cramps or numbness Integumentary Integumentary: Denies lesions or unusual bruising Neurologic Neurologic: Denies abnormal movements, abnormal speech, dizziness, numbness, seizure-like activity or syncope Psychiatric Psychiatric: Denies anxiety, behavioral changes, change in appetite, change in libido, cognitive impairment, confusion, depression, difficulty concentrating, hallucinations or suicidal thoughts Endocrine Endocrinology: Denies excessive sweating, polydipsia or polyuria Hematologic/Lymphatic Hematologic/Lymphatic: Denies easy bleeding, easy bruising or lymphadenopathy Allergic/Immunologic Allergic/Immunologic: Denies itchy eyes, lip swelling, seasonal rhinorrhea, rhinitis, throat swelling, tongue swelling, eczemia, wheezing or asthma Physical Exam Const alert, oriented x3, no apparent distress and healthy appearing General Appearance: cooperative and comfortable; Negative for anxious HEENT normocephalic Eyes EOMs intact bilaterally and no scleral icterus General Eye: normal appearance of both eyes Neck full ROM and supple Lymph Lymphatic: no lymphadenopathy noted Chest Chest: abnormal inspection of the chest Resp normal respiratory effort Effort and Inspection: able to speak in complete sentences Cardio regular rate GI normal to inspection, nondistended, normoactive bowel sounds, soft to palpation and non-tender GI Narrative: uterus is firm below umbilicus Palpation: soft; Negative for tender external exam normal Back/Spine no CVA tenderness and thoraco-lumbar ROM normal Extremity normal to inspection, full ROM, no clubbing, cyanosis or edema, no calf tenderness and no pedal edema General Extremity: Negative for calf tenderness or edema Skin Lesions: no lesions Rashes: no rashes Psych mental status grossly normal, thought process normal, cooperative, affect norm al, speech normal, activity/motor behavior normal, denies homicidal ideation and denies suicidal ideation Assessment & Plan (1) Status post vaginal delivery: COMMENT: successful 11/15/21- bb boy Luis GOLDMAN PLAN: Plan s/p PPD # 2- pt states that she is ready to go home 1. routine post delivery care 2. breast feeding- support given 3. rh positive 4. rubella immune 5. plan for dc to home tomorrow
== END 2021-11-17 09:50 | disposition home or self-care (01) | DRG 807 ==
PROVIDERS: Admitting Provider Obstetrics & Gynecology; Referring Provider Obstetrics & Gynecology; Visit Provider Obstetrics & Gynecology
DX: O34.219 Maternal care for unspecified type scar from previous cesarean delivery (principal); Z37.0 Single live birth; E03.9 Hypothyroidism, unspecified; O99.284 Endocrine, nutritional and metabolic diseases complicating childbirth; Z3A.40 40 weeks gestation of pregnancy; O70.1 Second degree perineal laceration during delivery; Z79.899 Other long term (current) drug therapy
CPT/HCPCS: 59025; 59050; 85025; 86703; 86780; 86803; 86850; 86900; 86901; 87340; 87426; 87491; 87591; 99218; J7120; A4216; G0378

== ENCOUNTER → 2022-05-31 | Outpatient (CLI) | payer SELFPAY ==
--- NOTE | 2022-05-31 08:58 | US_ITS ---
INDICATION: goiter EXAMINATION: Ultrasound US Thyroid (eg thyroid, parathyroid, parotid) TECHNIQUE: Ro scale and color doppler imaging was performed of the thyroid gland. COMPARISON: None. FINDINGS: RIGHT THYROID LOBE: 5.4 x 2.9 x 2.2 cm.. Heterogeneous echotexture with normal vascularity. [No thyroid nodules are present. LEFT THYROID LOBE: 5.4 x 2.3 x 1.8 cm.. Heterogeneous echotexture with normal vascularity. [No thyroid nodules are present. ISTHMUS: 9 mm.. No thyroid nodules are present. US/Thyroid IMPRESSION: Hypervascular enlarged nodular thyroid lobes. Electronically Signed: Ryan Brasher DO at 22:57 EST Reading Location ID and State: [facility] / [place] Tel [phone], Service support ,
[2022-05-31 10:03] LABS: T4 Free Direct 0.87 ng/dL (0.76-1.46); Thyroid Stim Hormone (TSH) 2.67 uIU/mL (0.358-3.74)
== END | disposition home or self-care (01) ==
PROVIDERS: PCP Family Medicine; Referring Provider Obstetrics & Gynecology; Visit Provider Obstetrics & Gynecology
DX: E03.9 Hypothyroidism, unspecified (principal); E04.9 Nontoxic goiter, unspecified
CPT/HCPCS: 36415; 76536; 84439; 84443

== ENCOUNTER → 2023-07-20 | Outpatient (CLI) | payer OTHER, SELFPAY ==
[2023-07-23 07:08] LABS: Chlamydia By Nucleic Acid AMP Negative (Negative); Gonococcus By Nucleic Acid AMP Negative (Negative)
== END | disposition home or self-care (01) ==
PROVIDERS: PCP Family Medicine; Visit Provider Obstetrics & Gynecology
DX: Z34.90 Encounter for supervision of normal pregnancy, unspecified, unspecified trimester (principal)
CPT/HCPCS: 87086; 87491; 87591

== ENCOUNTER → 2023-08-25 | Outpatient (CLI) | payer SELFPAY, OTHER ==
--- NOTE | 2023-08-25 14:13 | US_ITS ---
STUDY: SECOND AND THIRD TRIMESTER OBSTETRICAL ULTRASOUND REASON FOR EXAM: Female, 27 years old anatomy LMP: TECHNIQUE: Transabdominal limited to anatomy TECHNICAL QUALITY: Adequate. PRIOR ULTRASOUND: None. FINDINGS: ANATOMY: Cranium: Normal lateral ventricles measuring 6.1 mm. Normal choroid plexus. Normal cerebellum measuring 2.1 cm. Normal cisterna magna measuring 6.7 mm. Normal face, nose and lips. Chest: Normal 4-chamber heart.. Heart rate 147 bpm. Abdomen/Pelvis: Normal diaphragm. Normal stomach. Normal abdominal wall. Normal cord insertion. Normal 3 vessel cord. Normal kidneys. Normal bladder. Spine: Normal cervical spine. Normal thoracic spine. Normal lumbar spine. Normal sacrum. Extremities: Normal bilateral upper extremities. Normal bilateral lower extremities. US/OB Anatomy Scan IMPRESSION: Viable intrauterine gestation without gross anomalies. Findings as above Electronically Signed: Arnaldo Ayala MD at 18:49 EDT ,
== END | disposition home or self-care (01) ==
PROVIDERS: PCP Family Medicine; Referring Provider Obstetrics & Gynecology; Visit Provider Obstetrics & Gynecology
DX: Z34.90 Encounter for supervision of normal pregnancy, unspecified, unspecified trimester (principal)
CPT/HCPCS: 76805; 87591

== ENCOUNTER → 2023-09-28 | Outpatient (CLI) | payer OTHER, SELFPAY ==
[2023-09-28 13:51] LABS: Absolute Lymphocyte Count 1.92 X10^3/uL (0.83-4.51); Absolute Neutrophil Count 7.5 X10^3/uL (2.0-7.7); Basophil# 0.07 X10^3/uL; Basophil% 0.7 % (0-1); Eosinophil# 0.35 X10^3/uL; Eosinophils% 3.3 % (0-5); Hematocrit 34.6 % (37-47); Hemoglobin 11.4 g/dL (12.0-15.0); Lymphocyte # 1.92 X10^3/ul (0.83-4.51); Lymphocyte % 18.2 % (19-41); Mean Corp Hgb Conc 32.9 g/dL (32-36); Mean Corpuscular Hgb 28.6 pg (27.0-32.0); Mean Corpuscular Volume 86.9 fL (81-99); Mean Platelet Vol. 9.6 fl (6.2-12.0); Monocyte# 0.68 X10^3/uL; Monocyte% 6.4 % (0-10); NRBC Flagged by Analyzer 0 % (0-5); Neutrophil # 7.46 X10^3/uL (2.7-7.7); Neutrophil % 70.6 % (47-70); Platelet Count 245 K/mm3 (150-450); RBC Distribution Width CV 13.9 % (11.6-14.6); RBC Distribution Width SD 43.5 fl (35.1-43.9); Red Blood Count 3.98 M/mm3 (4.2-5.4); White Blood Count 10.6 K/mm3 (4.4-11.0)
[2023-09-28 13:59] LABS: Glucose Challenge Gest 1H 50g 87 mg/dL (70-140)
[2023-09-28 15:19] LABS: HIV - WCH Non-Reactive (Nonreactive); Hepatitis B Surface Antigen Non-Reactive (Nonreactive); Hepatitis C Antibody Non-Reactive (Nonreactive); Rubella IgG Reactive (Nonreactive); Syphilis Antibodies Non-reactive
== END | disposition home or self-care (01) ==
LOC: PAVLAB 13:32
PROVIDERS: Obstetrics & Gynecology; PCP Family Medicine; Referring Provider Advanced Practice Midwife; Visit Provider Advanced Practice Midwife
DX: Z34.90 Encounter for supervision of normal pregnancy, unspecified, unspecified trimester (principal)
CPT/HCPCS: 36415; 82950; 85025; 86703; 86762; 86780; 86803; 86850; 86900; 86901; 87340

== ENCOUNTER → 2023-12-10 | Outpatient (CLI) | payer SELFPAY, OTHER | END | disposition home or self-care (01) | PROVIDERS: PCP Family Medicine; Referring Provider Advanced Practice Midwife; Visit Provider Advanced Practice Midwife | DX: O09.92 Supervision of high risk pregnancy, unspecified, second trimester (principal); Z3A.00 Weeks of gestation of pregnancy not specified | CPT/HCPCS: 87081 ==

== ENCOUNTER 2023-12-26 03:41 | Inpatient (IN) | payer SELFPAY, OTHER ==
[2023-12-26] VITALS (24 sets, daily range): BP systolic 109–157; BP diastolic 58–94; PULSE 59–103; RESP 16–20; TEMP 36.6–37.5; O2SAT 82–100; BMI 30.7
[2023-12-26] MEDS: Lactated Ringers 1,000 ML 50 ML IV (04:00)
--- NOTE | 2023-12-26 04:01 | HP.PCM.OB_ITS ---
HPI - General General Date of Admission: 12/26/23 Date of Service: 12/26/23 HPI Narrative AINSLEY VAZQUEZ, is a 28 F 38.5 weeks who presents to unit with contractions. History of C/S for breech with her first delivery and has had 3 successful VBACs. Maternal Data Information HARSHAD Calculator Estimated Delivery Date Method Current WG Current Estimate 01/04/24 LMP (Certain) 38w 5d Final HARSHAD: 01/04/24 Final HARSHAD Source: US >20 weeks [facility]ational [facility] 38.[facility] Medical History (Updated 12/26/23 @ 03:57 by Sherin Gtz) Superficial varicosities Vaginal delivery Hypothyroidism Home Medications ?Medication ?Instructions ?Recorded ?Last Taken ?Type calcium carbonate (Calcium 600) 600 mg PO DAILY 07/17/23 12/25/23 22:00 History lysine 500 mg tablet 500 mg PO DAILY 07/17/23 12/25/23 22:00 History multivitamin no.47-iron fum 27 cap PO 07/17/23 12/25/23 22:00 History mg-folate no.1 1 mg-dha 300 mg capsule (PNV-DHA) omega-3 fatty acids 1,000 mg 1,000 mg PO DAILY 07/17/23 12/25/23 22:00 History capsule levothyroxine 100 mcg tablet 100 mcg PO DAILY #100 tabs 07/30/23 12/25/23 06:00 Rx Allergy/AdvReac Type Severity Reaction Status Date / Time No Known Allergies Allergy Verified 12/26/23 02:07 Family History Brother Thyroid disorder Mother Thyroid cancer Grandmother Diabetes Colon cancer Paternal Sister Diabetes Grandfather Colon cancer paternal Cancer maternal- melanoma Other Breast cancer Surgical History Status post vaginal delivery Previous delivery affecting S/P S/P tonsillectomy Social History adopted: No household members: family housing: house number of children: 4 current occupational status: unemployed 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 pets and animals: No history of recent travel: No sexually active: Yes Smoking Status: Never smoker alcohol intake: never substance use type: does not use well-balanced diet: daily or most days caffeine: Yes Type: coffee Number of servings: 2 eating out: rarely or never during the past year weight has: remained stable what type of physical activity do you participate in: none bernard/adventist: Uatsdin seatbelt use: sometimes do you feel safe at home: Yes additional social history: Asjdoie-Qdun-UxrhmwicHerberth lara Patient is a stay at home mom History 5 Elective abortions Hx Para 4 Spontaneous abortions Hx # Term Pregnancies Ectopic pregnancies Hx # Pregnancies Multiple births # of living children 4 Past Pregnancies Del. Date Name GA/Weeks Outcome Route Bth Weight Gen Labor Lgth Anesthesia Del Locatn Provider FOB 07/20/16 Melony 40 live - full term 7 lbs 12 oz Male Сергей Pan 12/06/17 Yazan 37 live - full term 6lbs 10oz Male 8 hours none [facility] RADHA Jose 05/29/19 Joel 39 live - full term 8lbs 2oz Male [facility] 11/15/21 Dom 39 live - full term Male [facility] Marvelabel Velphil Delivery Date: 07/20/16 Last Updated by: America Crabtree MD [facility], was told by dr rashel WISEMAN Delivery Date: 12/06/17 Last Updated by: Aleshia French No issues during or delivery. Visit Details Expected Delivery Route/Plan Labor Preferences- CB/BF classes: no labor support person: Jose labor intervention preferences: [] pain management options preferred: limited cut cord/dad catch: cord : yes PP control planned: discussed discussed possible routes of delivery and associated risks: [] special requests: [] Plans Covid status: [] Flu vaccine: [] Tdap vaccine: declines Rhogam: NA LARC form signed: yes Problem list reviewed and updated with the most current plan of care details and appropriate orders placed. Relevant counseling for the gestational age provided. Continue routine care and follow up unless otherwise noted in visit notes/problem list details OB Flowsheet Initial Weight: Not Recorded Date -?-?-?-?-?-?-?-?-?-?-?-?- EGA Weight BP Urine Prot -?-?-?-?-?-?-?-?-?-?-?-?- Glucose FHR FuHt Pres Dilation -?-?-?-?-?-?-?-?-?-?-?-?- Effaced St Visit Note 07/20/23 -?-?-?-?-?-?-?-?-?-?-?-?- 16w 0d 163 lb 8 oz 130/81 -?-?-?-?-?-?-?-?-?-?-?-?- 166 -?-?-?-?-?-?-?-?-?-?-?-?- JV- HC is consis tent with 16 weeks 2 days but too big to measure CRL. anatomy scan ordered. HC is consistent with LMP 08/25/23 -?-?-?-?-?-?-?-?-?-?-?-?- 21w 1d 169 lb 6 oz Negative -?-?-?-?-?-?-?-?-?-?-?-?- Negative 150 -?-?-?-?-?-?-?-?-?-?-?-?- kw- no vb/crampi ng. good fm. has anatomy US today. kw- no vb/cramping. good fm. has anatomy US today. ordered placed for 28 week labs 09/28/23 -?-?-?-?-?-?-?-?-?-?-?-?- 26w 0d 176 lb 4 oz 108/64 Nega tive -?-?-?-?-?-?-?-?-?-?-?-?- Negative 138 26 -?-?-?-?-?-?-?-?-?-?-?-?- MH-No VB, LOF. G ood Fm. Did PN labs and 28 wk labs today. Larc. States will only come to OV every 4 weeks. 10/27/23 -?-?-?-?-?-?-?-?-?-?--?-?- 30w 1d 180 lb 2 oz 134/78 Nega tive -?-?-?-?-?-?-?-?-?-?-?-?- Negative 141 30 -?-?-?-?-?-?-?-?-?-?-?-?- JV- no lof, vagi nal bleeding, or dec fm. no complaints today. [facility] as many visits as possible. 11/12/23 -?-?-?-?-?-?-?-?-?-?-?-?- 32w 3d 183 lb 103/71 Negative -?-?--?-?-?-?-?-?-?-?-?-?- Negative 134 32 -?-?-?-?-?-?-?-?-?-?-?-?- KW- no vb/lof/ct x. good fm. no concerns today 12/02/23 -?-?-?-?-?-?-?-?-?-?-?-?- 35w 2d 185 lb 126/80 Negative -?-?-?-?-?-?-?-?-?-?-?-?- Negative 140 35 -?-?-?-?-?-?-?-?-?-?-?-?- KW- no vb/lof/ct x. good fm. GBS next visit. 12/10/23 -?-?-?-?-?-?-?-?-?-?-?-?- 36w 3d 184 lb 107/75 Negative -?-?-?-?-?-?-?-?-?-?-?-?- Negative 140 36 Cephalic -?-?-?-?-?-?-?-?-?-?-?-?- KW- no vb/lof/ct x. good fm. gbs today. KW- no vb/lof/ctx. good fm. gbs today. isra appt encouraged next week 12/23/23 -?-?-?-?-?-?-?-?-?-?-?-?- 38w 2d 187 lb 2 oz 115/81 -?-?-?-?-?-?-?-?-?-?-?-?- 140 37 Cephalic 3 -?-?-?-?-?-?-?-?-?-?-?-?- 60 -2 KW- no vb/ lof/ctx. good fm. GBS neg. NST FHR Rate Baby A Baseline: 140 Variability:: Minimal and Moderate Accelerations:: 15 x 15 NST Reactive:: Yes FHR Category:: Category I Uterine Activity:: 5-6 ROS Constitutional Constitutional: Denies change in weight, fatigue, fever(s), headache(s), poor appetite or weakness Eyes Eyes: Denies blurry vision, change in vision, floaters, seeing flashes or spots in vision ENT HEENT: Denies dizziness, headache(s), loss taste/smell or sore throat Cardiovascular Cardiovascular: Denies chest pain, dizziness, dyspnea, irregular heart rhythm, lightheadedness, palpitations or rapid heart rate Respiratory/Chest Respiratory/Chest: Denies change in mental status, chest tightness, cough, dyspnea or breast pain Gastrointestinal Gastrointestinal: Denies anorexia, chewing difficulty, constipation, diarrhea or weight changes Genitourinary Genitourinary: Denies difficulty urinating, dysuria, flank pain, genital pain, urinary frequency or urinary urgency Musculoskeletal Musculoskeletal: Denies back pain, difficulty walking, extremity pain, joint pain, muscle cramps or muscle weakness Integumentary Integumentary: Denies lesions or unusual bruising Neurologic Neurologic: Denies abnormal movements, abnormal speech, dizziness, numbness, seizure-like activity, syncope or weakness Psychiatric Psychiatric: Denies behavioral changes, change in appetite, confusion, depression, homicidal ideation, suicidal ideation or suicidal thoughts Endocrine Endocrinology: Denies excessive sweating, polydipsia or polyuria Hematologic/Lymphatic Hematologic/Lymphatic: Denies anemia Allergic/Immunologic Allergic/Immunologic: Denies itchy eyes, lip swelling, throat swelling, tongue swelling or wheezing Vital Signs Vital Signs Vital Signs: 12/26/23 02:12 12/26/23 02:13 12/26/23 02:13 Temperature Temperature Source Pulse Rate 90 Respiratory Rate Blood Pressure 116/75 BP Systolic 116 BP Diastolic 75 Pulse Ox 82 12/26/23 02:13 12/26/23 02:13 12/26/23 02:13 Temperature Temperature Source Temporal Pulse Rate Respiratory Rate 16 Blood Pressure BP Systolic BP Diastolic Pulse Ox 97 12/26/23 02:13 Temperature 98.0 F Temperature Source Pulse Rate Respiratory Rate Blood Pressure BP Systolic BP Diastolic Pulse Ox Weight Weight: 184 lb 15.485 oz Body Mass Index (BMI) 30.7 Physical Exam Const alert, oriented x3 and no apparent distress General Appearance: cooperative Orientation / Consciousness: awake HEENT normocephalic Neck full ROM Lymph Lymphatic: no lymphadenopathy noted Chest inspection of chest normal Resp normal respiratory effort and normal air movement Effort and Inspection: able to speak in complete sentences and symmetric chest movement GI soft to palpation and non-tender Inspection: gravid Palpation: soft; Negative for tender external exam normal Back/Spine normal to inspection Extremity normal to inspection and full ROM Skin no rashes or lesions noted Psych mental status grossly normal Appearance: grossly normal Speech: normal speech Labs Labs Labs: Blood Type A POSITIVE Antibody Screen NEGATIVE Hct 34.6 % (37-47) L Hgb 11.4 g/dL (12.0-15.0) L Obstetrics Ultrasound Syphilis Total Ab Non-reactive Rubella IgG Antibody Reactive (Nonreactive) Hep Bs Antigen Non-Reactive (Nonreactive) Hepatitis C Antibody Non-Reactive (Nonreactive) Chlamydia DNA (RUTHANN) Negative (Negative) N.gonorrhoeae DNA (RUTHANN) Negative (Negative) HIV 1&2 Antibody Non-Reactive (Nonreactive) Glucose 1 Hr 50 gm 87 mg/dL (70-140) Group B Strep DNA Negative (Negative) Rhogam given: Yes Assessment & Plan (1) FH: cleft palate: COMMENT: Husbands sister (2) Varicose veins during : COMMENT: right leg above and below knee. (3) Previous section: COMMENT: x 3 (4) Supervision of high-risk : QUALIFIERS: Trimester: second trimester Qualified Code(s): O09.92 - Supervision of high risk , unspecified, second trimester COMMENT: PRR , HARSHAD 01/06/24 PC Yazan Ty Jonathan, Ian Jose (5) : QUALIFIERS: Weeks of gestation: 38 weeks Qualified Code(s): Z3A.38 - 38 weeks gestation of COMMENT: Neg GBS Did PN labs and 28 wk labs 09/28/23. States will only come to office visit every 4 weeks. 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
[2023-12-26 04:14] LABS: Absolute Lymphocyte Count 2.41 X10^3/uL (0.83-4.51); Absolute Neutrophil Count 9.1 X10^3/uL (2.0-7.7); Basophil# 0.08 X10^3/uL; Basophil% 0.6 % (0-1); Eosinophil# 0.16 X10^3/uL; Eosinophils% 1.3 % (0-5); Hematocrit 40.8 % (37-47); Hemoglobin 13.5 g/dL (12.0-15.0); Lymphocyte # 2.41 X10^3/ul (0.83-4.51); Lymphocyte % 19.2 % (19-41); Mean Corp Hgb Conc 33.1 g/dL (32-36); Mean Corpuscular Hgb 28.6 pg (27.0-32.0); Mean Corpuscular Volume 86.4 fL (81-99); Mean Platelet Vol. 9.9 fl (6.2-12.0); Monocyte# 0.68 X10^3/uL; Monocyte% 5.4 % (0-10); NRBC Flagged by Analyzer 0 % (0-5); Neutrophil # 9.08 X10^3/uL (2.7-7.7); Neutrophil % 72.5 % (47-70); Platelet Count 273 K/mm3 (150-450); RBC Distribution Width CV 13.4 % (11.6-14.6); RBC Distribution Width SD 41.9 fl (35.1-43.9); Red Blood Count 4.72 M/mm3 (4.2-5.4); White Blood Count 12.5 K/mm3 (4.4-11.0)
[2023-12-26 04:50] LABS: Syphilis Antibodies Non-reactive
--- NOTE | 2023-12-26 05:56 | PCM.PN.BLA ---
Progress Note Coping well with contractions current tracing: FHT: 140 Moderate variability reactive no decelerations category I tracing [place]: 2-3 Contractions Membranes:ruptured clear SVE:/-[address] Delgado at this time for . She is on unit A/P: Continue with position changes Titrate pitocin per protocol- if needed Epidural per anesthesia-if desired GBS neg Anticipate Dr Echeverria aware of above assessment and agrees with plan of care Assessment & Plan Assessment/Plan (1) Active labor: (2) FH: cleft palate: (3) Varicose veins during : (4) Previous section: (5) Supervision of high-risk : QUALIFIERS: Trimester: second trimester Qualified Code(s): O09.92 - Supervision of high risk , unspecified, second trimester (6) : QUALIFIERS: Weeks of gestation: 38 weeks Qualified Code(s): Z3A.38 - 38 weeks gestation of (7) Hypothyroidism: QUALIFIERS: 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
[2023-12-26] MEDS: Oxytocin 15 Units/NS 250ml 15 UNITS/250 ML IV.SOLN 334 UNITS IV (06:41)
[2023-12-26] MEDS: Lidocaine 1% (20 ml mdv) 20 ML Vial INFILT (06:45)
--- NOTE | 2023-12-26 06:58 | OP.PCM_ITS ---
Assessment & Plan (1) Vaginal delivery following previous section, delivered: (2) Active labor: (3) FH: cleft palate: COMMENT: Husbands sister (4) Varicose veins during : COMMENT: right leg above and below knee. (5) Previous section: COMMENT: x 3 (6) Supervision of high-risk : QUALIFIERS: Trimester: second trimester Qualified Code(s): O09.92 - Supervision of high risk , unspecified, second trimester COMMENT: PRR , HARSHAD 01/06/24 Yazan Peguero Jonathan, Ian Jose (7) : QUALIFIERS: Weeks of gestation: 38 weeks Qualified Code(s): Z3A.38 - 38 weeks gestation of COMMENT: Neg GBS Did PN labs and 28 wk labs 09/28/23. States will only come to office visit every 4 weeks. 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 Delivered the head in RANDOLPH presentation. The head was delivered atraumatically and no nuchal cord was identified. The anterior and posterior shoulders delivered without complication followed by the rest of the and the was placed on the maternal abdomen. Delayed cord clamping was employed for approximately 3 minutes. Cord was clamped and cut and gentle traction was applied to the cord and the placenta delivered spontaneously. Immediately following, it was noted to be intact with a 3 vessel cord. The perineum and vagina were inspected and noted to have a second degree laceration which was repaired with 3-0 Vicryl in the usual fashion. EBL was 200cc. Patient and infant tolerated delivery well. Apgars 8/9. Dr Saavedra notified of vaginal delivery and orders reviewed. Physician agrees with current plan of care. Operative Information Date of Procedure: 12/26/23 Pre-Operative Diagnosis: See AP comments Post-Operative Diagnosis: Same Surgery / Procedure Performed: field marketing team leader #1: Mireya Harmon Type of Anesthesia: None Estimated Blood Loss: 200 Time of Delivery: 06:36 Findings Presentation: Vertex Amniotic Membrane Rupture Type: Artificial Amniotic Fluid Description: Clear Placental Delivery Description: Spontaneous Placenta Disposition: [facility] Cord Vessel Description: 3 Vessels Cord Entanglement: None A Gender: Male (1 minute): 8 (5 minute): 9 Delayed Cord Clamping: Yes Post Vaginal Delivery Medications Given After Delivery: IV Pitocin Episiotomy Description: None Laceration: 2nd degree Complication Complications: None Multi Select Codes Urinary/Genital Urinary/Genital CPT Codes: 59075 Vaginal Delivery [facility]
--- NOTE | 2023-12-26 07:04 | DCINST_ITS ---
Discharge Instructions Diet Discharge Diet: No restrictions Activity Discharge Activity: Return to Normal Activity May resume sexual activity in: 6-8 weeks Dressing / Incision Call your doctor if you observe: Fever of 101 or Higher, Coldness, Increased Pain, Numbness or Tingling, Change in Color, Inability to urinate, Inability to have a bowel movement, Using more than 1 pad per hour, Shortness of breath, Dizziness, Fainting spells, Swelling in the ankles, Chest pain, Increased palpitations (irregular heartbeat), Calf discomfort and Uncontrolled pain Follow Up Care Please Follow Up With: Mireya Harmon CNM When: Please call the office to schedule your follow up appointment in 6 weeks. If you had high blood pressure please call to schedule an appointment in 2 weeks. Test Results: Test results from this visit will be discussed in further detail at your follow- up appointment, if applicable. Discharge Plan Admission Admit Date/Time: 12/26/23 03:41 Attending Provider: Mireya Harmon Primary Care Provider: Mike Flores Discharge Orders/Prescriptions Prescriptions: No Action levothyroxine 100 mcg tablet 100 mcg PO DAILY Qty: 100 3RF PNV-DHA 27 mg iron-1 mg -300 mg capsule PO omega-3 fatty acids 1,000 mg capsule 1,000 mg PO DAILY lysine 500 mg tablet 500 mg PO DAILY calcium carbonate [Calcium 600] 600 mg calcium (1,500 mg) tablet 600 mg PO DAILY Referrals / Follow Up: Mike Flores MD [Primary Care Provider] -
[2023-12-26] MEDS: Oxytocin 15 Units/NS 250ml 15 UNITS/250 ML IV.SOLN 83 UNITS IV (07:12)
[2023-12-26] MEDS: Acetaminophen 500 MG Tablet 1000 MG PO ×2 (07:53→22:52)
[2023-12-27] VITALS (8 sets, daily range): BP systolic 114–137; BP diastolic 69–85; PULSE 57–83; RESP 16; TEMP 36.4–36.6; O2SAT 97
--- NOTE | 2023-12-27 10:55 | PN.OBGYN_ITS ---
Subjective Subjective Patient doing well without complaints. Tolerating PO. Ambulating and voiding without difficulty. Feeding well. Denies chest pain, shortness of breath, calf pain/swelling, fevers, chills, lightheadedness. Objective Data Objective Data Vital Signs: Vital Signs Temp Pulse Resp BP Pulse Ox O2 Del Method 98 F 64 16 137/77 H 97 Room Air 12/27/23 08:00 12/27/23 08:11 12/27/23 08:00 12/27/23 08:11 12/27/23 03:43 12/27/23 08:00 Oxygen Delivery Method Room Air Weight: 184 lb 15.485 oz Body Mass Index (BMI) 30.7 Intake & Output: Intake and Output for Last 24 Hours 12/25/23 12/26/23 12/27/23 23:59 23:59 23:59 Intake Total 443.40 / 443.40 Output Total 1202 / 1202 Balance -758.60 / -758.60 Lab / Micro Data Attestation: I reviewed the patient's lab results. 12/26/23 04:00 ROS Constitutional Constitutional: Reports systems reviewed and no addt'l complaints, except as documented; Denies anorexia or headache(s) Cardiovascular Cardiovascular: Reports systems reviewed and no addt'l complaints, except as documented; Denies dizziness, dyspnea, nausea or tachypnea Respiratory/Chest Respiratory/Chest: Reports systems reviewed and no addt'l complaints, except as documented; Denies cough, dyspnea, shortness of breath at rest or tachypnea Gastrointestinal Gastrointestinal: Reports systems reviewed and no addt'l complaints, except as documented; Denies abdominal pain, constipation or nausea Genitourinary Genitourinary: Reports systems reviewed and no addt'l complaints, except as documented; Denies burning urination, difficulty urinating, dysuria, urinary frequency or urinary incontinence Musculoskeletal Musculoskeletal: Reports systems reviewed and no addt'l complaints, except as documented Integumentary Integumentary: Reports systems reviewed and no addt'l complaints, except as documented Neurologic Neurologic: Reports systems reviewed and no addt'l complaints, except as documented; Denies abnormal speech, dizziness or headache(s) Psychiatric Psychiatric: Reports systems reviewed and no addt'l complaints, except as documented Endocrine Endocrinology: Reports systems reviewed and no addt'l complaints, except as documented Hematologic/Lymphatic Hematologic/Lymphatic: Reports systems reviewed and no addt'l complaints, except as documented Physical Exam Const alert, oriented x3 and no apparent distress Neck full ROM Resp normal respiratory effort, normal air movement and no retractions Effort and Inspection: able to speak in complete sentences and symmetric chest movement GI soft to palpation Bladder / Kidney Exam: bladder normal to palpation Uterus Palpation: uterus fundus Extremity normal to inspection and full ROM Psych mental status grossly normal, thought process normal and cooperative Assessment & Plan (1) Vaginal delivery following previous section, delivered: COMMENT: KW IAL 38.6 Boy- PLAN: s/p PPD # 1 1. routine post delivery care 2. breast feeding- support given 3. rh positive 4. rubella immune 5. Discharge home (2) Active labor: (3) FH: cleft palate: COMMENT: Husbands sister (4) Varicose veins during : COMMENT: right leg above and below knee. (5) Previous section: COMMENT: x 3 (6) Supervision of high-risk : QUALIFIERS: Trimester: second trimester Qualified Code(s): O09.92 - Supervision of high risk , unspecified, second trimester COMMENT: PRR , HARSHAD 01/06/24 PC Yazan Ty Jonathan, Ian Jose (7) : QUALIFIERS: Weeks of gestation: 38 weeks Qualified Code(s): Z 3A.38 - 38 weeks gestation of COMMENT: Neg GBS Did PN labs and 28 wk labs 09/28/23. States will only come to office visit every 4 weeks. 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
--- NOTE | 2023-12-28 13:21 | NURSING ---
corrected documentation for successful
== END 2023-12-27 17:10 | disposition home or self-care (01) | DRG 807 ==
LOC: WPOUT 03:44 → WP 03:44
PROVIDERS: Admitting Provider Advanced Practice Midwife; PCP Family Medicine; Visit Provider Advanced Practice Midwife
DX: O70.1 Second degree perineal laceration during delivery (principal); Z37.0 Single live birth; E06.3 Autoimmune thyroiditis; O34.219 Maternal care for unspecified type scar from previous cesarean delivery; Z3A.38 38 weeks gestation of pregnancy; O99.284 Endocrine, nutritional and metabolic diseases complicating childbirth; Z82.79 Family history of other congenital malformations, deformations and chromosomal abnormalities
CPT/HCPCS: 59025; 59050; 85025; 86780; 86850; 86900; 86901; 99221; J7120; G0378

== ENCOUNTER 2025-04-13 13:35 | Day surgery (SDC) | payer SELFPAY, OTHER ==
[2025-04-13] VITALS (9 sets, daily range): BP systolic 99–122; BP diastolic 61–77; PULSE 71–81; RESP 16; TEMP 36.7–36.9; O2SAT 98–100; BMI 26.1
[2025-04-13] MEDS: Lactated Ringers 1,000 ML 15 ML IV (14:01)
--- NOTE | 2025-04-13 14:03 | PCM.PRE.AN2 ---
ASA Classification* ASA Classification ASA Classification: 2 Assessment & Plan Anesthesia* Anesthesia Assessment Anesthesia Assessment: Discussed sedation and/or anesthesia options, risks, benefits, and alternatives with patient/parents/legal guardian/POA. Questions invited. The patient/parents/legal guardian/POA seems to understand and agrees to proceed with anesthesia plan. Reviewed the physical assessment, medical history, allergy history and patient home medications list prior to surgery/procedure/anesthetic and documented any changes. Performed airway and anesthesia risk assessments. Anesthesia Type Anesthesia Type: MAC Anesthesia Focused Assessment* Temperature: 98.5 F Pulse Rate: 81 Blood Pressure: 122/77 Respiratory Rate: 16 Pulse Ox: 100 Airway Assessment Mouth opens: >3 cm Mallampati Score: II Labs Anesthesia Preop lab: CBC WBC, (4.4-11.0) 12.5 K/mm3 H 12/26/23, 04:00 RBC, (4.2-5.4) 4.72 M/mm3 12/26/23, 04:00 Hgb, (12.0-15.0) 13.5 g/dL 12/26/23, 04:00 Hct, (37-47) 40.8 % 12/26/23, 04:00 Plt Count, (150-450) 273 K/mm3 12/26/23, 04:00 CHEMISTRY TSH, (0.358-3.74) 2.67 uIU/mL 05/31/22, 09:18 COAG Pre-Assessment Diagnosis/Proposed Procedure Planned Operative Procedure(s): Dilation curettage, suction. Anesthesia History Anesthesia History - public health physician: Anesthesia History - public health physician Hx Hospitalization Any Problems With Anesthesia Cholinesterase deficiency You/Your Family Experience fever (hyperthermia) with Relationship Recent Exposure to Contagious Disease Does patient have nerve stimulator Patient instructed to have device shut off --Does patient have Pacemaker No 04/13/25 13:51 or ICD? When Was Last Pacemaker Check QUESTION #4 FULL TEXT: You/Your Family Experience fever (hyperthermia) with Anesthesia Last Oral Intake Last Oral intake: Last Oral Intake NPO since 06:30 04/13/25 13:51 Meds taken in AM with sips of No 04/13/25 13:51 water? Meds patient instructed to take am of surgery PONV PONV - public health physician: PONV - public health physician Female HX of Motion Sickness HX of N/V After Surgery Non-Smoker Duration of Surgery greater than 60 minutes Number of Risk Factors PONV Score Height & Weight Height & Weight: Anesthesia: Height & Weight Height 5 ft 5 in 04/13/25 13:51 Weight: 71.2 kg 04/13/25 13:51 Body Mass Index (BMI) 26.1 04/13/25 13:51 Respiratory Assessment Respiratory Assessment - public health physician: Respiratory Tract Infection Hx - public health physician Hx Respiratory Tract Infection STOP Sleep Apnea STOP Sleep Apnea - public health physician: STOP Sleep Apnea - public health physician Hx Hypertension Hx Sleep Apnea CPAP BIPAP Do you snore loudly (louder than talking or can be heard Do you often feel tired/ fatigued/ sleepy during daytime? Has anyone observed you stop breathing during sleep? STOP Results QUESTION #5 FULL TEXT : Do you snore loudly (louder than talking or can be heard through closed doors)? Tobacco Use History Tobacco Use History - public health physician: Tobacco Use History - public health physician Tobacco Use Smoking Status Never smoker 04/07/25 14:57 Hx Tobacco Use No 12/26/23 03:57 Years Smoking Packs Smoked per Day Smoking Cessation Date was within the last 15 years Hx Smoking Cessation Date Hx Smoking Cessation Counseling Hematologic Medial History Hematologic Hx - public health physician: Hematologic Medical Hx - water resource consultant Hx of Blood Transfusion Hx of Transfusion in last 3 Months Date of Last Transfusion (if within last 3 months) Ever experience any problems with transfusion(s)? Specify any problems Hx of Preganancy in last 3 Months Nurse Filling Out Transfusion & Questions: Date: Time: Patient unable to answer at this time (ie. confused, unrespo /Reproduction History /Reproductive History - public health physician: /Reproductive Hx- public health physician Hx Now Gestational Age (in weeks): EDC: Hx Hx Para Hx Section SAB No 04/11/25 13:07 Does the father of the baby or his family experience fever w Father of the baby Malignant Hypertension history comment Active Medications Active Medications: Current Medications Generic Name Dose Route Start Last Admin Trade Name Freq PRN Reason Stop Dose Admin Doxycycline Monohydrate 100 mg 04/13/25 07:00 04/13/25 14:02 Doxycycline 100 Mg Capsule PO 100 mg X1 CATHRYN Administration Lactated Ringer's 1,000 mls @ 15 mls/hr 04/13/25 13:30 04/13/25 14:01 IV 15 mls/hr .Q48H CATHRYN Administration PFSH Medical History Family history of colon cancer Family history of breast cancer Superficial varicosities Vaginal delivery Hypothyroidism Home Medications ?Medication ?Instructions ?Recorded ?Last Taken ?Type calcium carbonate (Calcium 600) 600 mg PO DAILY 07/17/23 12/25/23 22:00 History levothyroxine 100 mcg tablet 100 mcg PO DAILY #100 tabs 12/08/24 Unknown Rx cod liver oil 2 cap PO ONCE 04/07/25 Unknown History multivitamin no.47-iron fum 27 cap PO 04/07/25 Unknown History mg-folate no.1 1 mg-dha 300 mg capsule (PNV-DHA) misoprostol 200 mcg tablet 200 mcg vaginal ONCE #3 tabs 04/11/25 Unknown Rx (Cytotec) Allergy/AdvReac Type Severity Reaction Status Date / Time No Known Allergies Allergy Verified 04/11/25 13:07 Family History Brother Thyroid disorder Mother Thyroid cancer, Onset Age: 29 Grandmother Diabetes Colon cancer, Onset Age: 81 Paternal Sister Diabetes Grandfather Colon cancer, Onset Age: 56 paternal Cancer, Onset Age: 67 maternal- melanoma Aunt Breast cancer, Onset Age: 42 Paternal Surgical History Status post vaginal delivery Previous delivery affecting S/P S/P tonsillectomy Social History adopted: No household members: family housing: house number of children: 5 current occupational status: unemployed current occupation: home health aide pets and animals: No history of recent travel: Yes (December) out of state: Yes out of country: No sexually active: Yes Smoking Status: Never smoker alcohol intake: never substance use type: does not use well-balanced diet: daily or most days caffeine: Yes Type: coffee Number of servings: 2 eating out: rarely or never during the past year weight has: remained stable what type of physical activity do you participate in: none bernard/anabaptist: Yarsanism seatbelt use: sometimes do you feel safe at home: Yes additional social history: Rslcmqu-Hzza-Raxpfdky cabinets Patient is a stay at home mom Review of Systems (Anesthesia) ROS Narrative System reviewed and no additional complaints, except as documented.
[2025-04-13 14:14] LABS: Hematocrit 39.2 % (37-47); Hemoglobin 13.3 g/dL (12.0-15.0); Mean Corp Hgb Conc 33.9 g/dL (32-36); Mean Corpuscular Volume 83.9 fL (81-99); Mean Platelet Vol. 9.7 fl (6.2-12.0); Platelet Count 260 K/mm3 (150-450); RBC Distribution Width CV 13.1 % (11.6-14.6); RBC Distribution Width SD 40.0 fl (35.1-43.9); Red Blood Count 4.67 M/mm3 (4.2-5.4); White Blood Count 6.8 K/mm3 (4.4-11.0)
--- NOTE | 2025-04-13 14:59 | PCM.HP.BLA ---
History and Physical Date of Admission: 04/13/25 Intake Vital Signs 12/08/2509:29 04/11/2513:04 Height 5 ft 5 in 5 ft 5 in Weight: 146 lb 6 oz 157 lb 6 oz BMI 24.3 26.2 BP 120/83 H 115/82 H Blood Pressure Location Lt brachial Position Sitting Pulse 84 Pulse Source Monitor Pulse Oximetry (%) 98 Oxygen Delivery Method room air Intake Visit Reasons: *EST* NOB LMP 01/26, HARSHAD 11/02 Automotive Lot Attendant Required: No Is patient in pain?: No Allergies No Known Allergies Allergy (Verified 04/11/25 13:07) Medications ?Medication ?Instructions ?Recorded ?Confirmed ?Type calcium carbonate (Calcium 600) 600 mg PO DAILY 07/17/23 04/07/25 History levothyroxine 100 mcg tablet 100 mcg PO DAILY #100 tabs 12/08/24 04/07/25 Rx cod liver oil 2 cap PO ONCE 04/07/25 04/07/25 History multivitamin no.47-iron fum 27 cap PO 04/07/25 04/07/25 History mg-folate no.1 1 mg-dha 300 mg capsule (PNV-DHA) misoprostol 200 mcg tablet 200 mcg vaginal ONCE #3 tabs 04/11/25 04/11/25 Rx (Cytotec) oxycodone-acetaminophen 5 mg-325 1 tab PO Q6H PRN pain 2 days #3 04/11/25 04/11/25 Rx mg tablet (Percocet) tabs Last Menstrual Period: 01/26/25 Zika: Zika virus screening: Negative : No Have you fallen in the past year?: No PFSH PFSH Medical History Family history of colon cancer Family history of breast cancer Superficial varicosities Vaginal delivery Hypothyroidism Surgical History Status post vaginal delivery Previous delivery affecting S/P S/P tonsillectomy Family History Brother Thyroid disorder Mother Thyroid cancer, Onset Age: 29 Grandmother Diabetes Colon cancer, Onset Age: 81 Paternal Sister Diabetes Grandfather Colon cancer, Onset Age: 56 paternal Cancer, Onset Age: 67 maternal- melanoma Aunt Breast cancer, Onset Age: 42 Paternal Social History adopted: No household members: family housing: house number of children: 5 current occupational status: unemployed 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 pets and animals: No history of recent travel: Yes (- December) out of state: Yes out of country: No sexually active: Yes Smoking Status: Never smoker alcohol intake: never substance use type: does not use well-balanced diet: daily or most days caffeine: Yes Type: coffee Number of servings: 2 eating out: rarely or never during the past year weight has: remained stable what type of physical activity do you participate in: none bernard/caodaism: Ruy seatbelt use: sometimes do you feel safe at home: Yes additional social history: Ttufqzv-Vwqq-Ijstndbk Shipuine Patient is a stay at home mom History 6 Elective abortions Hx Para 5 Spontaneous abortions Hx # Term Pregnancies Ectopic pregnancies Hx # Pregnancies Multiple births # of living children 5 Past Pregnancies Del. Date Name GA/Weeks Outcome Route Bth Weight Infant Gen Labor Lgth Anesthesia Del Locatn Provider FOB 07/20/16 Melony 40 live - full term 7 lbs 12 oz Male Сергей Pan 12/06/17 Yazan 37 live - full term 6lbs 10oz Male 8 hours none [facility] RADHA Jose 05/29/19 Joel 39 live - full term 8lbs 2oz Male [facility] 11/15/21 Dom 39 live - full term 8#3oz Male none [facility] Chung Soni Jose 12/26/23 Raz 38 live - full term 7lb 3oz Male none [facility] Mireya Harmon CNM Jose Delivery Date: 07/20/16 Last Updated by: America Crabtree MD [facility], was told by dr rashel WISEMAN Delivery Date: 12/06/17 Last Updated by: Aleshia French No issues during or delivery. Delivery Date: 12/26/23 Last Updated by: Tiffany Lopez See problem list for complications and KW IAL 38.6. HPI *EST* NOB LMP 01/26, HARSHAD 11/02 Details: YAYA VAZQUEZ is a 29 year old who presents for suction D&C for a missed . OB Visit HARSHAD Calculator Estimated Delivery Date Method Current WG Current Estimate 11/02/25 LMP (Certain) 10w 5d Comments: HIV: Urine Culture: Sequential Screen: NIPT Screen: Estimated Due Date: 11/02/25 Initial Weight: 157 lb Date <del>?</del> EGA Weight BP Urine Prot <del>?</del> Glucose FHR FuHt Pres Dilation <del>?</del> Effaced St Visit Note 04/11/25<del>?</del> 10w 5d 157 lb 6 oz(+6 oz) 115/82 <del>?</del> <del>?</del> KW- CRL cons with 7.4 weeks gestation. started bleeding vaginally on thursday. No FHT or color flow noted to fetus. Dr Echeverria in to rescan. agrees with SAB. Discussed cytotec vs D&C. will pickle cutter cytotec and discuss with . Menstrual History Last Menstrual Period: 01/26/25 Reported LMP: definite Normal amount/duration: No (2 weeks but normal otherwise) Frequency in days: 28-35 On hormonal BC at conception: No hCG+: 03/11/25 Antepartum Record Genetic Screening: Congenital Heart Defect: Other, Neural Tube Defect: Other, Hemoglobinopathy Or Carrier: Other, Cystic Fibrosis: Other, Chromosome Abnormality: Other, Aurelio-Sachs: Other, Hemophilia: Other, Intellectual Disability/Autism: Other, Recurrent Loss/Stillbirth: Other, Other Structural Defect: Patient (mother had stillborn-down syndrome), Other Genetic Disease: Other and Maternal Metabolic Disorder: Other Infection History: Live with someone with TB or Exposed to TB: No, Patient or Partner has history of Genital Herpes: No, Rash or Viral illness since last mentrual period: No, Prior GBS-Infected child: No, History of STD: No, HIV Infection: No, History of Hepatitis: No, Recent travel outside of [place]: No, Concern for hepatitis exposure: No, Varicella immune: Yes (immune -virus) and Covid Vaccinated: No Medical History Medical History: Positive: Varicosities/phlebitis (right leg varicose, superficial blood clot after c section ), Thyroid dysfunction (hypothyroid), Cancer Researcher surgery (c section x1), Operations/hospitalizations (tonsillectomy) and Relevant family history (See PFSH ) and Negative: Diabetes, Hypertension, Heart disease, Auto-immune disorder, Kidney disease/UTI, Neurologic/epilepsy, Psychiatric, Depression/ depression, Hepatitis/liver disease, Trauma/domestic violence, History of blood transfusions, D (Rh) Sensitized, Pulmonary (e.g.,TB,Asthma), Seasonal allergies, Drug/latex allergies/reactions, Breast, Anesthetic complications, History of abnormal pap, Uterine anomaly/barak, Infertility, Anti-retroviral treatment and Other ACOG First Trimester First Trimester: Desire for , Alcohol, Tobacco Cessation, Illicit/Recreational Drug/Substance Use, Intimate Partner Violence, Barriers to care, Unstable Housing, Communication Barriers, Environmental/Work Hazards, Anticipated Course of Care, Nurtrition and weight gain, Toxoplasmosis Precations, Use of Any medications, Sexual activity, Exercise, Dental Care, Sauna/Hot tub use, Seat Belt use, Childbirth classes/Hospital facilities, Travel, Indications for Ultrasound and Screening for Aneuploidy; Discussed Second Trimester Second Trimester: Signs and Symptoms of Labor, Selecting a care provider, Reproductive Life Planning & Contreception and Care Planning; Discussed Depression/Anxiety and Discussed Intimate Partner Violence Third Trimester Third Trimester: Pain Management Plans, Labor support person(s), Immediate Larc, Circumcision preference, Movement Monitoring, Signs and Symptoms of Preeclampsia and Feeding No ; Discussed Family Medical Leave or Disability Forms ROS Const Reports system reviewed and no additional complaints, except as documented, Denies fatigue, Denies headache(s) and Denies lethargy ENT Denies headache(s) Card Reports system reviewed and no additional complaints, except as documented Resp Reports system reviewed and no additional complaints, except as documented GI Reports system reviewed and no additional complaints, except as documented, Denies abdominal pain, Denies constipation, Denies cramping, Denies diarrhea and Denies dyspepsia Reports system reviewed and no additional complaints, except as documented, Denies abnormal vaginal bleeding, Denies difficulty voiding, Denies dyspareunia and Denies dysuria Musc Reports system reviewed and no additional complaints, except as documented Skin/Breast Reports system reviewed and no additional complaints, except as documented Neuro Yes system reviewed and no additional complaints, except as documented and No headache(s) Psych Reports system reviewed and no additional complaints, except as documented, Denies anhedonia and Denies anxiety Endo Reports system reviewed and no additional complaints, except as documented and Denies fatigue Exam Const General: cooperative, healthy appearing and comfortable Neck Neck: normal visual inspection and full ROM Resp Effort & Inspection: normal respiratory effort and able to speak in complete sentences GI Inspection: normal to inspection Palpation: soft External Female Exam: normal external appearance and normal appearance of the urethra Urethra: normal appearance of the urethra Skin General: no rashes or lesions noted Neuro General: patient alert, patient awake and patient oriented x3 Extrem General: normal to inspection and full ROM Psych Appearance: grossly normal and well kempt Mental Status: mental status grossly normal Mood: congruent mood Affect: normal affect Speech and Movement: speech and movement normal Thought Process: normal Thought Content: normal Coding Level of Care Code Off vis,est,level 4 Diagnoses Missed ab O02.1 Supervision of high-risk O09.90 10 weeks gestation of Z3A.10 Weeks of gestation: 10 weeks FH: cleft palate Z82.79 Varicose veins during O22.00 Previous section Z98.891 Enlarged thyroid E04.9 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 (6) Previous section: Status: Acute Comment: x 4 (7) Enlarged thyroid: Status: Chronic (8) Hypothyroidism: Status: Chronic Qualifiers: Hypothyroidism type: due to Raman's thyroiditis Qualified Code(s): E03.8 - Other specified hypothyroidism; E06.3 - Autoimmune thyroiditis Medications: New misoprostol (Cytotec) 200 mcg vaginal ONCE 3 tabs 0RF O02.1 - Missed oxycodone-acetaminophen 5-325 mg (Percocet) 1 TAB PO Q6H PRN 3 tabs 0RF pain 2 days O02.1 - Missed Plan Details Follow Up: 1 (SAB follow up) After discussing the patient's diagnosis and treatment plan options, patient wishes to proceed with surgical management. I have discussed with the patient the risks, benefits, and alternatives of the procedure which include but are not limited to risks of anesthesia, bleeding, infection, possible damage to bowel, bladder, or surrounding vasculature which could lead to additional surgery to evaluate any complications. Patient agrees to procedure and wishes to proceed. ACOG/uptodate references given for additional information regarding procedure.
--- NOTE | 2025-04-13 15:00 | POC_PTH ---
PATIENT: YAYA VAZQUEZ LOC: [facility] [place] U#:[id number] AGE/SX: 29/F ROOM: RE04/13/[address]: Dr. Adela Delgado DO : 1995 BED: DIS: 04/13/2025 SPEC #: [id number] RECD: 04/14/25 07:14 STATUS: JACKI CHANDANA #: [id number] JESSICA: 04/13/25 15:[address]: Adela Delgado DEPT: SURGICAL PATHOLOGY RECD BY: Juan A Montez ENTERED: 04/14/25 10:02 SP TYPE: PROD CONC OTHR DR: Dr. Mike Flores MD Tissues: A - Product of conception, NOS Procedures: Surgery Specimen Level IV HEADER OPERATION: Dilation and curettage, suction PRE-OP DIAGNOSIS: Missed TISSUE SUBMITTED: A- Products of conception MICROSCOPIC DIAGNOSIS A. Uterine contents, dilation and curettage: * Inflamed and degenerating decidua with chorionic villi consistent with intrauterine products of conception MICROSCOPIC DESCRIPTION Slides are reviewed. GROSS DESCRIPTION A. Received in formalin labeled with the patient's name and date of . Designated as products of conception is a 7.9 x 7.5 x 1.2 cm aggregate of lieberman-pink to red-brown irregular tissue fragments and minimal mucoid material. parts are not present. Phonograph Cartridge Assembler sections are submitted in 2 cassettes. DE 04/14/2025 CPT:77146
--- NOTE | 2025-04-13 15:01 | DCINST_ITS ---
Discharge Instructions DC O2, CPAP, BIPAP needs Home O2 Discharge instructions: No Dressing / Incision Discharge Activity: Return to Normal Activity, May Shower and May Take a Tub Bath (after 1 week) May resume sexual activity in: 1-2 weeks Weight Bearing Status: Weight bearing as tolerated Lifting Restrictions: none Dressing / Incision Call your doctor if you observe: Fever of 101 or Higher, Using more than 1 pad per hour, Shortness of breath and Uncontrolled pain Follow Up Care Please Follow Up With: Adela Delgado DO When: Call [phone] to schedule appointment. Test Results: Test results from this visit will be discussed in further detail at your follow- up appointment, if applicable. Discharge Plan Admission Primary Reason for Your Visit: dilation and curettage Attending Provider: Adela Delgado Primary Care Provider: Mike Flores Instructions Print Language: Swedish Discharge Orders/Prescriptions Prescriptions: No Action calcium carbonate [Calcium 600] 600 mg calcium (1,500 mg) tablet 600 mg PO DAILY levothyroxine 100 mcg tablet 100 mcg PO DAILY Qty: 100 3RF cod liver oil Capsule 2 cap PO ONCE PNV-DHA 27 mg iron-1 mg -300 mg capsule PO misoprostol [Cytotec] 200 mcg tablet 200 mcg vaginal ONCE Qty: 3 0RF Referrals / Follow Up: Mike Flores MD [Primary Care Provider, Family Practice] Disposition Disposition (needs filled in before D/C Order can be placed): Home, Self Care
[2025-04-13] MEDS: Lactated Ringers 500 ML IV (15:13)
[2025-04-13] MEDS: Midazolam 2 MG/2 ML Syringe IV (15:13)
[2025-04-13] MEDS: Lidocaine 1% (5 ml sdv) 5 ML Vial 4 ML IV (15:15)
[2025-04-13] MEDS: Lidocaine 1% (20 ml mdv) 20 ML Vial (15:24)
--- NOTE | 2025-04-13 15:40 | PCM.OPRPT ---
Multi Select Codes Urinary/Genital Urinary/Genital CPT Codes: 34669 Surg Trtmt missed Ab 1TM Operative Report (Standard) Operative Information Date of Procedure: 04/13/25 Pre-Operative Diagnosis: 7 week missed Post-Operative Diagnosis: 7 week missed Surgery/Procedure Performed: suction dilation and curettage bus or truck garage mechanic: No Type of Anesthesia: MAC/Supplemental RN Documented Start/Stop Times: Operation Date: 04/13/25 15:00 Case Time Into Pre-Op 04/13/25 13:42 Out of Pre-Op 04/13/25 15:06 Anesthesia Start 04/13/25 15:13 Into Room 04/13/25 15:13 Procedure Start 04/13/25 15:24 Procedure Start Time: 15:24 Procedure Stop Time: 15:39 Select all DRAINS/GRAFTS/IMPLANTS that apply: None Estimated Blood Loss: 30cc Specimen collected: Yes Description of specimen(s) removed: endometrial curetting's/products of conception Description of surgery: Patient was taken to the operating room and placed under MAC local anesthesia. She was prepped and draped in the normal sterile fashion the dorsal lithotomy position. The anterior lip of the cervix was grasped and the uterus sounded to 11 cm. Cervix was progressively dilated to allow passage of a size 7 suction curette. Progressive passes were made removing the retained products of conception without complication and under ultrasound guidance . Sharp curettage confirmed complete removal of the retained products. All instruments were removed from the vagina and excellent hemostasis was noted and the patient was taken to recovery in stable condition. IM methergine was given to help contract the uterus. Surgical Findings: small amount of products of conception removed. Complications Complications: No Admit VTE Documentation VTE Present on Admission: No VTE Mechan Device Prophylaxis: SCD's VTE Pharm Prophylaxis ordered?: No
--- NOTE | 2025-04-13 15:48 | PCM.POST.ANE ---
Anesthesia: Postop Eval I Current Vital Signs Temperature: 98.1 F Pulse Rate: 74 Blood Pressure: 99/61 Respiratory Rate: 16 Pulse Ox: 98 Oxygen Delivery Method: Room Air Assessment Airway patent: Yes Spontaneous unlabored respirations: Yes Mental status: Asleep nausea: No Vomiting: No Anesthesia Complication: No Fluid Hydration Crystalloid volume administer (ml): 500 Total IV fluid infused: 500 Progress Note Anesthesia document: Postop Eval 1 completed: Yes
--- NOTE | 2025-04-13 16:13 | POSTOPAN2_ITS ---
Anesthesia Postop Eval I Sum Postop Eval Completion status Anesthesia document: Postop Eval 1 completed: Yes Anesthesia Postop Eval I Summary Anesthesia Postop Eval I Summary: Anesthesia Postop Eval I: Assessment Summary Airway patent Yes 04/13/25 15:49 SENIOR [email or web address] Spontaneous unlabored Yes 04/13/25 15:49 SENIOR CLERK.LUIS FOBNaif respirations Mental status Asleep 04/13/25 15:49 SENIOR [email or web address].[email or web address] nausea No 04/13/25 15:49 SENIOR CLERK.SKOBY Vomiting No 04/13/25 15:49 SENIOR CLERK.LUIS FOBNaif Anesthesia Postop Eval I: Fluid Summary Crystalloid volume administer 500 04/13/25 15:49 SENIOR CLERK.SKOBY (ml) Colloids volume administered ( ml) Blood Product volume administered (ml) Total IV fluid infused 500 04/13/25 15:49 SENIOR CLERK.LUIS FOBNaif Anesthesia Postop Eval I: Summary Notes Anesthesia Complication No 04/13/25 15:49 SENIOR CLERK.ILDA Anesthesia Complication Comment: Post-operative progress note Anesthesia: Postop Eval II Evaluation Mental status: Awake Pain Level: 0 nausea: No Vomiting: No
--- NOTE | 2025-04-13 16:13 | PCM.POSTANE2 ---
Anesthesia Postop Eval I Sum Postop Eval Completion status Anesthesia document: Postop Eval 1 completed: Yes Anesthesia Postop Eval I Summary Anesthesia Postop Eval I Summary: Anesthesia Postop Eval I: Assessment Summary Airway patent Yes 04/13/25 15:49 [email or web address] [email or web address] Spontaneous unlabored Yes 04/13/25 15:49 [email or web address] FOBNaif respirations Mental status Asleep 04/13/25 15:49 [email or web address] nausea No 04/13/25 15:49 [email or web address] Vomiting No 04/13/25 15:49 [email or web address] FOBNaif Anesthesia Postop Eval I: Fluid Summary Crystalloid volume administer 500 04/13/25 15:49 [email or web address] (ml) Colloids volume administered ( ml) Blood Product volume administered (ml) Total IV fluid infused 500 04/13/25 15:49 DUB [email or web address] [email or web address].LUI SFOBNaif Anesthesia Postop Eval I: Summary Notes Anesthesia Complication No 04/13/25 15:49 [email or web address] [email or web address] Anesthesia Complication Comment: Post-operative progress note Anesthesia: Postop Eval II Evaluation Mental status: Awake Pain Level: 0 nausea: No Vomiting: No
--- OUTSIDE RECORDS SUMMARY | 2025-04-13 18:56 | XMS RPT_ITS | CCD ---
Author Organization [facility] Providers [employer] Driver Name Role Phone Care Physician, No Primary Primary Care Provider Unavailable Care Physician, No Primary Referring Provider Un available Dr. America Crabtree Attending Provider [phone] Zainab ORTA, FILIBERTO Morse Attending Provider [phone] Care Physician, No Primary Primary Care Provider Unavailable Care Physician, No Primary Referring Provider Un available Dr. America Crabtree Attending Provider [phone] Dr. Adela Delagdo Attending Provider [phone] Dr. America Crabtree Admit Provider Dr. America Crabtree Referring Provider [phone] Dr. America Crabtree Other Provider Dr. Adela Delgado Other Provider Dr. Mike Flores Primary Care Provider Dr. Mike Flores Referring Provider Dr. Adela Delgado Attending Provider [phone] Mike Flores MD Unavailable Aubree MULLIGAN, Frances Unavailable Lenora Olivia RN Unavailable Vess Raudel MULLIGAN Unavailable Unavailable Dr. Mike Flores Primary Care Provider Dr. Mike Flores Referring Provider Dr. Adela Delgado Attending Provider [phone] Dr. Huber Pagan Attending Provider LAURA Harmon Attending Provider [phone] Zainab SHUTTLE THREADER, SHUTTLE THREADER-C Mini Attending Provider [phone] GILMAR AUGUST Attending Unavailable RANDALL VELASQUEZ Consulting Unavailable GILMAR AUGUST Admitting Unavailable GILMAR AUGUST Primary Care Unavailable PROVIDER, UNKNOWN Consulting Unavailable PROVIDER, UNKNOWN Consulting Unavailable PROVIDER, UNKNOWN Consulting Unavailable HUBER PAGAN MD Admitting Unavailable HUBER PAGAN MD Primary Care Unavailable HUBER PAGAN MD Attending Unavailable RANDALL VELASQUEZ Consulting Unavailable PROVIDER, UNKNOWN Consulting Unavailable PROVIDER, UNKNOWN Consulting Unavailable PROVIDER, UNKNOWN Consulting Unavailable Sandra LINK, Dr. Mckeon Primary Care Provider Dr. Mike Flores MD Referring Provider Dr. Huber Pagan MD Attending Provider [phone] Vaccevans, Mike Primary Care Unavailable Mireya Harmon Admitting Unavailable Mireya Harmon Attending Unavailable Huber Pagan Attending Unavailable Sandra, Mike Primary Care Unavailable Vaccariello, Mike Referring Unavailable Mireya Harmon Attending Unavailable Sandra, Mike Primary Care Unavailable Vaccevans, Mike Referring Unavailable Vaccariello, Mike Referring Unavailable Vaccaribhanu, Mike Primary Care Unavailable Mireya Harmon Attending Unavailable Sandra, Mike Primary Care Unavailable Mireya Harmon Attending Unavailable Mireya Harmon Consulting Unavailable Mireya Harmon Admitting Unavailable Medications Current Medications Medication Drug Class(es) Dates Sig (Normalized) Sig (Original) calcium carbonate 1500 mg oral tablet (4 sources) Start: 07-17-2023 take 1 tablet by mouth once daily Calcium Carbonate (Calcium 600) 600 mg calcium (1,500 mg) tablet Active 600 mg PO DAILY July 17, 2023 1:00am Mary-C Oral Tablet (7 sources) Mary-C Oral Tab let levothyroxine sodium 0.1 mg oral tablet (17 sources) l-Thyroxine Start: 07-30-2023 End: 12-08-2024 take 1 tablet by mouth once daily Levothyroxine 100 mcg tablet Active 100 ug PO DAILY 100 3 December 08, 2024 10:44am Start: 08-01-2022 End: 07-30-2023 Levothyroxine 88 mcg tablet Discontinued 88 ug PO .COMPLEX 30 0 July 06, 2023 5:26pm July 17, 2023 10:06am 88 mcg orally qd, 1/2 on Sundays; [place]-3 Fatty Acids (3 sources) Start: 07-17-2023 take 1000 mg by mout h once daily [place]-3 Fatty Acids Active 1000 MG PO DAILY July 17, 2023 1:00am Start: 07-17-2023 take 1000 mg by mouth once pari ly [place]-3 Fatty Acids Active 1000 MG PO DAILY July 17, 2023 12:00am Prenat.Vits,Adi,Vxk-Oauk-Nzo ic (7 sources) Start: 08-19-2017 take 1 tablet by mouth once daily Prenat.Vits,Adi,Vqc-Pavw-Atrse Active 1 TABLET PO daily August 19, 2017 8:35am Start: 08-19-2017 End: 08-01-2022 take 1 tablet by mouth once daily Prenat.Vits,Adi,Cuc-Jsbq-Hmfjb Discontin ued 1 TABLET PO daily August 19, 2017 12:00am August 01, 2022 2:03pm Start: 08-19-2017 End: 08-01-2022 take 1 tablet by mouth once daily Prenat.Vits,Adi,Vxi-Vpcs-Drhme Discontin ued 1 TABLET PO daily August 18, 2017 11:00pm August 01, 2022 1:03pm Start: 08-19-2017 take 1 tablet by josef th once daily Prenat.Vits,Adi,Feq-Stsp-Ewuuq Active 1 TABLET PO daily August 18, 2017 11:00pm Start: 08-19-2017 take 1 tablet by josef th once daily Prenat.Vits,Adi,Gyb-Bzid-Xgjcx Active 1 TABLET PO daily August 19, 2017 12:00am Completed/Discontinued Medications Medication Drug Class(es) Dates Sig (Normalized) Sig (Original) Levonorgestrel-Et hinyl Estrad (4 sources) Progestin, Estrogen, Progestin-containin g Intrauterine Device Start: 07-04-2022 End: 08-01-2022 take 1 tablet by mouth once daily Levonorgestrel-Eth inyl Estrad (Aviane) 0.1-20 mg-mcg tablet Discontinued 1 {tbl} PO daily 21 05July 04, 2022 1:00am August 01, 2022 2:03pm Start: 07-04-2022 End: 08-01-2022 take 1 tablet by mouth once daily Levonorgestrel-Ethinyl Estrad (Aviane) 0.1-20 mg-mcg tablet Discontinued 1 TABLET PO daily July 04, 2022 1:00am August 01, 2022 2:03pm Start: 07-04-2022 End: 08-01-2022 take 1 tablet by mouth once daily Levonorgestrel-Ethinyl Estrad (Aviane) 0.1-20 mg-mcg tablet Discontinued 1 TABLET PO daily July 04, 2022 12:00am August 01, 2022 1:03pm lysine 500 mg oral tablet (4 sources) Start: 07-17-2023 End: 12-08-2024 take 1 tablet by mouth once daily Lysine 500 mg tablet Discontinued 500 mg PO DAILY July 17, 2023 1:00am December 08, 2024 10:30am Multivit 37-Pefi-Jlszfa 1-Dha (Pnv-Dha) 27 mg iron-1 mg -300 mg capsule (4 sources) Start: 07-17-2023 End: 12-08-2024 Multivit 23-Onok-Qqpssq 1-Dha (Pnv-Dha) 27 mg iron-1 mg -300 mg capsule Discontinued NMA PO July 17, 2023 1:00am December 08, 2024 10:30am Start: 07-17-2023 Multivit 47-Ir on-Folate 1-Dha (Pnv-Dha) 27 mg iron-1 mg -300 mg capsule Active CAP PO July 17, 2023 1:00am Start: 07-17-2023 Multivit 47-Ir on-Folate 1-Dha (Pnv-Dha) 27 mg iron-1 mg -300 mg capsule Active CAP PO July 17, 2023 12:00am [place]-3 Fatty Acids 1,000 mg capsule (1 source) Start: 07-17-2023 End: 12-08-2024 take 1 capsule by mouth once daily [place]-3 Fatty Acids 1,000 mg capsule Discontinued 1000 mg PO DAILY July 17, 2023 1:00am December 08, 2024 10:31am Prenat.Vits,Adi,Min- Iron-Folic tablet (1 source) Start: 08-19-2017 End: 08-01-2022 Prenat.Vits,Adi,Min-Iron- Folic tablet Discontinued 1 {tbl} PO daily August 19, 2017 12:00am August 01, 2022 2:03pm supplement thyroid (nursing home) 120 mg oral tablet (20 sources) Start: 08-19-2017 End: 08-01-2022 take 1 tablet by mouth once daily Thyroid (Pork) ([place] Thyroid) 120 mg tablet Discontinued 90 mg PO daily January 18, 2019 11:33am August 01, 2022 2:22pm thyroid take 1 tablet by mouth once josemanuel y SHUTTLE THREADER Thyroid 60 MG Oral Tablet ; 1 daily (60 MG) Comments: Dr Mcneil Comment on above: Dr Mcneil Problems Active Problems Problem Classification Problem Date Documented Da te Episodic/Chronic Other complications of (12 sources) High risk ; Translations: [Supervision of high risk , unspecified, unspecified trimester] 11-20-2021 Episodic Comment on above: PRR , HARSHAD 4 PC Yazan Ty Jonathan, Ian Jose PRR(SP) HARSHAD 11/13 Yazan Peguero jonathan Jose Other complications of (20 sources) Supervision of high risk , unspecified, unspecified trimester; Translations: [Supervision of unspecified high-risk ] Episodic Other female genital disorders (7 sources) History of past delivery; Translations: [Status post vaginal delivery] Episodic Comment on above: successful 11/15- bb boy Dom- JV Other screening for suspected conditions (not mental disorders or infectious disease) (14 sources) care status; Translations: [Encounter for screening of mother] 06-13-2016 Episodic Residual codes; unclassified (12 sources) Family history of cleft palate; Translations: [Family history of other congenital malformations, deformations and chromosomal abnormalities] 11-20-2021 Episodic Comment on above: Husbands sister 's sister. Residual codes; unclassified (20 sources) Influenza vaccination declined; Translations: [Immunization not carried out because of patient refusal] 08-01-2016 Episodic Residual codes; unclassified (7 sources) Gestation period, 38 weeks; Translations: [38 weeks gestation of ] 07-11-2016 Episodic Residual codes; unclassified (7 sources) Gestation period, 37 weeks; Translations: [37 weeks gestation of ] 07-04-2016 Episodic Residual codes; unclassified (7 sources) Gestation period, 36 weeks; Translations: [36 weeks gestation of ] 06-27-2016 Episodic Residual codes; unclassified (7 sources) Gestation period, 34 weeks; Translations: [34 weeks gestation of ] 06-13-2016 Episodic Residual codes; unclassified (7 sources) Gestation period, 30 weeks; Translations: [30 weeks gestation of ] 05-12-2016 Episodic Residual codes; unclassified (7 sources) Gestation period, 24 weeks; Translations: [24 weeks gestation of ] 03-31-2016 Episodic Residual codes; unclassified (7 sources) Gestation period, 20 weeks; Translations: [20 weeks gestation of ] 03-03-2016 Episodic Residual codes; unclassified (7 sources) Gestation period, 14 weeks; Translations: [14 weeks gestation of ] 01-21-2016 Episodic Thyroid disorders (20 sources) Hypothyroidism; Translations: [Hypothyroidism, unspecified] Onset: 12-23-2023 Chronic Comment on above: armor thyroid replac ement. tsh q trimester- NL TSH Unclassified (7 sources) deliveries 12-21-2017 Comment on above: 1. PLTCS first pregn lo for decels Unclassified (7 sources) Number of Children 06-03-2019 Comment on above: 3. Unclassified (7 sources) Number of Pregnancies 06-03-2019 Comment on above: 3. Unclassified (7 sources) Vaginal deliveries 11-21-2021 Comment on above: 3. for #2, #3, #4 Unclassified (1 source) Labor finding 12-26-2023 Past or Other Problems Problem Classification Problem Date Documented Date Episodic/Chronic Other complications of (12 sources) Varicose veins of lower extremity in , unspecified trimester; Translations: [Varicose veins during ] Onset: 12-23-2023 07-17-2023 Episodic Comment on above: right leg above and below knee. Other complications of (1 source) Supervision of other high risk pregnancies, third trimester; Translations: [Supervision of other high risk pregnancies, third trimester] Onset: 01-11-2024 Episodic Other complications of (2 sources) Supervision of high risk , unspecified, second trimester; Translations: [Supervision of high risk , unspecified, second trimester] Onset: 12-23-2023 Episodic Other and delivery including normal (20 sources) ; Translations: [Encounter for supervision of normal , unspecified, unspecified trimester] Onset: 02-10-2024 Episodic Comment on above: 11/15/21 JV Boy Dom Neg GBS Did PN labs and 28 wk labs 09/28/23. States will only come to office visit every 4 weeks. declined genetic & carrier testing, nl anatomy GBS neg. SP labs marcus wn. dec STD testing, agrees to have done at . declines genetic, carrier, and ntd screening. Anatomy US normal Previous (18 sources) Maternal care for unspecified type scar from previous delivery; Translations: [Previous delivery, unspecified as to episode of care or not applicable] Onset: 01-09-2024 Episodic Comment on above: KW IAL 38.6 Boy- Residual codes; unclassified (20 sources) Family history of other congenital malformations, deformations and chromosomal abnormalities; Translations: [Family history of congenital anomalies] Onset: 12-23-2023 Episodic Residual codes; unclassified (8 sources) History of uterine scar from previous surgery; Translations: [Other postprocedural status] Onset: 12-23-2023 07-20-2023 Episodic Residual codes; unclassified (2 sources) 38 weeks gestation of ; Translations: [38 weeks gestation of ] Onset: 12-23-2023 Episodic Unclassified (7 sources) Post- visit - The patient is here for a scheduled follow-up visit after an emergent . The was complicated by distress before delivery. The patient feels well with no complaints, is sleeping well and has good energy level. There are no urinary problems. There are no bowel problems. Perineum/wound: abdominal wound healing well. The patient is breast feeding the infant. Menstruation: has not resumed. Patient states that sexual activity has resumed. The patient has resumed physical activity. Patient states that she is coping/adjusting to motherhood well and family is interacting well with . 09-15-2016 Unclassified (7 sources) Post- visit - The patient is here for a scheduled follow-up visit after an emergent . The was complicated by distress before delivery. The patient feels well with no complaints, is sleeping well and has good energy level. There are no urinary problems. Perineum/wound: abdominal wound healing well. Note for Post- visit: -2 wks post op. 08-01-2016 Unclassified (7 sources) Visit - The patient is here for a 38 week visit. 07-11-2016 Unclassified (7 sources) visit - The patient is here for a 36 week visit. 06-27-2016 Unclassified (7 sources) visit - The patient is here for a 34 week visit. 06-13-2016 Unclassified (7 sources) visit - The patient is here for a 30 week visit. 05-12-2016 Unclassified (7 sources) visit - The patient is here for a 24 week visit. 03-31-2016 Unclassified (7 sources) Visit - The patient is here for a 20 week visit. 03-03-2016 Unclassified (7 sources) visit (initial) - The patient suspects she is due to a positive home test, missed menses and morning sickness. Last menstrual period: 12 weeks ago. - (1). The patient complains of nausea and vomiting. 01-21-2016 Results Test Name Value Interpretation Reference Range Facility Endocrinology Visit Reporton 12-08-2024 Endocrinology Visit Report [facility] [address] [place] [address] OFFICE VISIT Date of Service: 12/08/24 MR#: [id number] Acct: [id number] Name: AINSLEY VAZQUEZ Rep #: [id number] 3 : 1995 Provider: Riya Vaughan Age/Sex: 29/F Location: [facility] [place] Status: Signed Intake Vital Signs 02/10/24 10:21 12/08/24 10:29 Height 5 ft 5 in 5 ft 5 in Weight: 146 lb 6 oz BMI 24.3 BP 120/83 H Blood Pressure Location Lt brachial Position Sitting Pulse 84 Pulse Source Monitor Pulse Oximetry (%) 98 Oxygen Delivery Method room air Intake Visit Reasons: 16 M FU Chief Complaint: hypothyroidism Is patient in pain?: No Allergies No Known Allergies Allergy (Verified 12/08/24 10:30) Medications ???Medication ???Instructions ???Recorded ???Confirmed ???Type calcium carbonate (Calcium 600) 600 mg PO DAILY 07/17/23 12/08/24 History levothyroxine 100 mcg tablet 100 mcg PO DAILY #100 tabs 5 12/08/24 Rx PFSH Medical History Superficial varicosities Vaginal delivery Hypothyroidism Surgical History Status post vaginal delivery Previous delivery affecting S/P S/P tonsillectomy Family History Brother Thyroid disorder Mother Thyroid cancer Grandmother Diabetes Colon cancer Paternal Sister Diabetes Grandfather Colon cancer paternal Cancer maternal- melanoma Other Breast cancer Social History adopted: No household members: family housing: house number of children: 4 current occupational status: unemployed 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 pets and animals: No history of recent travel: No sexually active: Yes Smoking Status: Never smoker alcohol intake: never substance use type: does not use well-balanced diet: daily or most days caffeine: Yes Type: coffee Number of servings: 2 eating out: rarely or never during the past year weight has: remained stable what type of physical activity do you participate in: none bernard/spiritism: Muslim seatbelt use: sometimes do you feel safe at home: Yes additional social history: Izckdqp[facility] Patient is a stay at home mom HPI HPI Chief Complaint: hypothyroidism Details: AINSLEY VAZQUEZ, is a 29 F who presents to the office today for follow up. She has hypothyroidism and is taking levothyroxine. She is feeling well, some fatigue, 5 boys at home. She is not desiring at this time, but will likely have another child in the future. TSH in Sep, 2024 was 1.03 ROS Const Constitutional: Positive for fatigue; No weight change or change in appetite Eyes Eyes: No change in vision ENT ENT: No dizziness/vertigo or difficulty swallowing Cardio Cardiology: No chest pain at rest, chest pain with exertion, shortness of breath or palpitations Musc Musculoskeletal: No abnormal gait, joint pain, numbness or tingling Neuro Neurology: No abnormal gait, memory loss, numbness or tingling Psych Psychiatric: No change in appetite, No memory loss and No Thoughts of harming yourself/Others Resp Respiratory: No cough, chest congestion or shortness of breath Gastro GI: No abdominal pain, constipation, diarrhea or difficulty swallowing Genitourinary-Female : No burning urination Skin Skin: No itchy eyes or wounds Endo Endocrine: Positive for fatigue; No weight change Aller/Imm Allergy/Immunologic: No itchy eyes Exam Const General: cooperative, healthy appearing, comfortable, no acute distress, well developed and not cushingoid Nutritional Appearance: well nourished Orientation: alert, awake and oriented x3 HENMT Head: normal to inspection Ears: hearing grossly normal bilaterally Nose: external nose normal Mouth: oral mucosae normal Eyes General: appearance normal, both eyes and all related structures Alignment and Position: alignment normal Periorbital: periorbital findings normal Eyelids: eyelids normal Conjunctivae: conjunctivae normal Neck Neck: normal visual inspection Neck mass: No Thyroid: diffusely enlarged Lymphatic: no lymphadenopathy noted Chest Chest palpation inspection: normal inspection of the chest Resp Effort Inspection: normal respiratory effort, able to speak in complete sentences, symmetric chest movement, no audible wheezes and no cough Cardio Rate: regular rate Rhythm: regular rhythm Skin General: no rashes or lesions noted Neuro General: patient alert, patient awake and patient oriented x3 Cranial Nerves: CN's II-XI intact bilaterally Cognition: normal cogniti (more content not included)... Normal [facility] T4-FREE (FREE THYROXINE)on 0 09-28-2024 Free T4 [Mass/Vol] 1.16 ng/dL Normal 0.76 - 1.46 [facility] Comment on above: Result Comment: P otential of falsely elevated results when biotin concentrations are > 10 ng/mL. Performed By: #### [id number] #### [facility],[address] [place], [place] [id number] TSHon 09-28-2024 TSH Qn 1.03 m[IU]/L Normal 0.35 - 3.74 [facility] Comment on above: Performed By: #### 2 [id number] #### [facility],[address] [place], [place] [id number] [employer] Office Visit Reporton 02-10-2024 [employer] Office Visit Report [facility], [address] [place] [address] OFFICE VISIT Date of Service: 02/10/24 MR#: [id number] Acct: [id number] Name: AINSLEY AVZQUEZ Rep #: [id number] : 1995 Provider: LAURA Andrade ams Age/Sex: 28/F Location: [facility] Status: Signed Intake Vital Signs 12/26/23 02:08 02/10/24 10:19 02/10/24 10:21 Height 5 ft 5 in 5 ft 5 in 5 ft 5 in Weight: 165 lb 8 oz BMI 27.5 BP 111/77 Intake Visit Reasons: visit (obstetrics) Release And Technical Records Clerk Required: No Is patient in pain?: No Allergies No Known Allergies Allergy (Verified 02/10/24 10:19) Medications ???Medication ???Instructions ???Recorded ???Confirmed ???Type calcium carbonate (Calcium 600) 600 mg PO DAILY 07/17/23 02/10/24 History lysine 500 mg tablet 500 mg PO DAILY 07/17/23 02/10/24 History multivitamin no.47-iron fum 27 cap PO 07/17/23 02/10/24 History mg-folate no.1 1 mg-dha 300 mg capsule (PNV-DHA) omega-3 fatty acids 1,000 mg 1,000 mg PO DAILY 07/17/23 02/10/24 History capsule levothyroxine 100 mcg tablet 100 mcg PO DAILY #100 tabs 07/30/23 02/10/24 Rx : Yes Current [facility]: [facility] Medical History Superficial varicosities Vaginal delivery Hypothyroidism Surgical History Status post vaginal delivery Previous delivery affecting S/P S/P tonsillectomy Family History Brother Thyroid disorder Mother Thyroid cancer Grandmother Diabetes Colon cancer Paternal Sister Diabetes Grandfather Colon cancer paternal Cancer maternal- melanoma Other Breast cancer Social History adopted: No household members: family housing: house number of children: 4 current occupational status: unemployed 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 pets and animals: No history of recent travel: No sexually active: Yes current gender identity: female Smoking Status: Never smoker alcohol intake: never substance use type: does not use well-balanced diet: daily or most days caffeine: Yes Type: coffee Number of servings: 2 eating out: rarely or never during the past year weight has: remained stable what type of physical activity do you participate in: none bernard/spiritism: Muslim seatbelt use: sometimes do you feel safe at home: Yes additional social history: Drulpow-Rfbo-Nqsropv s cabinets Patient is a stay at home mom History 5 Elective abortions Hx Para 5 Spontaneous abortions Hx # Term Pregnancies Ectopic pregnancies Hx # Pregnancies Multiple births # of living children 5 Past Pregnancies Del. Date Name GA/Weeks Outcome Route Bth Weight Infant Gen Labor Lgth Anesthesia Del Locatn Provider FOB 07/20/16 Melony 40 live - full term 7 lbs 12 oz Male Dereck Pan 12/06/17 Yazan 37 live - full term 6lbs 10oz Male 8 hours none [facility] S EM Jose 05/29/19 Joel 39 live - full term 8lbs 2oz Male [facility] S EM 11/15/21 Dom 39 live - full term Male [facility] Chung Soni 12/26/23 Raz 38 live - full term 7lb 3oz Male none [facility] Leisa Harmon CNM Jose Delivery Date: 07/20/16 Last Updated by: America Crabtree MD [facility], was told by dr kiser CPD Delivery Date: 12/06/17 Last Updated by: Aleshia French No issues during or delivery. Delivery Date: 12/26/23 Last Updated by: Tiffany Lopez See problem list for complications and KW IAL 38.6. Depression Screen PHQ-2/9 PHQ-2 Over the last 2 weeks, how often have you been bothered by any of the following problems? 1. Little interest or pleasure in doing things: not at all 2. Feeling down, depressed, or hopeless: not at all Total score: 0 Post HPI Routine Follow-Up: Details: AINSLEY VAZQUEZ is a 28 year old who presents for her post visit. Feeding: Both (pumping) Menses resumed: No Amonate since delivery: Yes Emotional Support: Yes Last Pap:: 2021 Control Method: NFP ROS Const All systems reviewed are unremarkable except as noted in H Reports system reviewed and no additional complaints, except as documented Card Reports system reviewed and no additional complaints, except as documented GI Reports system reviewed and no additional complaints, except as documented Neuro Yes system reviewed and no additional complaints, except as documented Psych Reports system reviewed and no additional complaints, except as documented, Denies anhedonia, Denies depression, Denies homicidal ideation (more content not included)... Normal [facility] CBC W/Diff, Automatedon 08-0 -2023 Absolute Lymph 2.41 X10 3/uL Normal 0.83-4.51 [facility] Comment on above: Performed By: #### L 100.0100, BTS #### [facility] [address] [place], [address] Absolute Neut 9.1 X10 3/uL High 2.0-7.7 [facility] Comment on above: Performed By: #### L 100.0100, BTS #### [facility] [address] [place], [address] Basophils/100 WBC (Bld) 0.6 % Normal 0-1 [facility] Comment on above: Performed By: #### L 100.0100, BTS #### [facility] [address] [place], [address] Eosinophils/100 WBC (Bld) 1.3 % Normal 0-5 [facility] Comment on above: Performed By: #### L 100.0100, BTS #### [facility] [facility] [address] [place], [address] Erythrocyte distribution width (RBC) [Ratio] 13.4 % Normal 11.6-14.6 [facility] Comment on above: Performed By: #### L 100.0100, BTS #### [facility] [address] [place], [address] Hematocrit (Bld) [Volume fraction] 40.8 % Normal 37-47 [facility] Comment on above: Performed By: #### L 100.0100, BTS #### [facility] [address] [place], [address] Hemoglobin (Bld) [Mass/Vol] 13.5 g/dL Normal 12.0-15.0 [facility] Comment on above: Performed By: #### L 100.0100, BTS #### [facility] [address] [place], [address] IG% 1.000 High 0.0-0.9 [facility] Comment on above: Result Comment: IG% - Immature Granulocytes (promyelocytes, myelocytes and metamyelocytes) > 1% indicates that a LEFT SHIFT is Present. Performed By: #### L 100.0100, BTS #### [facility] [address] [place], [address] Lymphocytes/100 WBC (Bld) 19.2 % Normal 19-41 [facility] Comment on above: Performed By: #### L 100.0100, BTS #### [facility] [address] [place], [address] MCH (RBC) [Entitic mass] 28.6 pg Normal 27.0-32.0 [facility] Comment on above: Performed By: #### L 100.0100, BTS #### [facility] [address] [place], [address] MCHC (RBC) [Mass/Vol] 33.1 g/dL Normal 32-36 [facility] Comment on above: Performed By: #### L 100.0100, BTS #### [facility] [address] [place], [address] MCV (RBC) [Entitic vol] 86.4 fL Normal 81-99 [facility] Comment on above: Performed By: #### L 100.0100, BTS #### [facility] [address] [place], [address] Monocytes/100 WBC (Bld) 5.4 % Normal 0-10 [facility] Comment on above: Performed By: #### L 100.0100, BTS #### [facility] [address] [place], [address] Neutrophils/100 WBC (Bld) 72.5 % High 47-70 [facility] Comment on above: Performed By: #### L 100.0100, BTS #### [facility] [address] [place], [address] Nucleated RBC (Bld) [#/Vol] 0 10*3/uL Normal 0-5 [facility] Comment on above: Performed By: #### L 100.0100, BTS #### [facility] [address] [place], [address] Platelet mean volume (Bld) [Entitic vol] 9.9 fL Normal 6.2-12.0 [facility] Comment on above: Performed By: #### L 100.0100, BTS #### [facility] [address] [place], [address] Platelets (Bld) [#/Vol] 273 10*3/uL Normal 150-450 [facility] Comment on above: Performed By: #### L 100.0100, BTS #### [facility] [address] [place], [address] RBC (Bld) [#/Vol] 4.72 10*6/uL Normal 4.2-5.4 [facility] Comment on above: Performed By: #### L 100.0100, BTS #### [facility] [address] [place], [address] RDW SD 41.9 fl Normal 35.1-43.9 [facility] Comment on above: Performed By: #### L 100.0100, BTS #### [facility] [address] [place], [address] WBC (Bld) [#/Vol] 12.5 10*3/uL High 4.4-11.0 [facility] Comment on above: Performed By: #### L 100.0100, BTS #### [facility] [address] [place], [address] Discharge Instructionon 08-0 Discharge Instruction [facility] Medical Records Department [address] [place] [address] Instructions for Home/Discharge Instructions 12/26/23 0704 MR#: [id number] Acct: [id number] Name: AINSLEY VAZQUEZ Rep #: [id number] : 1995 28 From: Mireya Harmon CNM PCP: Dr. Mike Flores MD Status:ADM IN Discharge Instructions Diet Discharge Diet: No restrictions Activity Discharge Activity: Return to Normal Activity May resume sexual activity in: 6-8 weeks Dressing / Incision Call your doctor if you observe: Fever of 101 or Higher, Coldness, Increased Pain, Numbness or Tingling, Change in Color, Inability to urinate, Inability to have a bowel movement, Using more than 1 pad per hour, Shortness of breath, Dizziness, Fainting spells, Swelling in the ankles, Chest pain, Increased palpitations (irregular heartbeat), Calf discomfort and Uncontrolled pain Follow Up Care Please Follow Up With: Mireya Harmon CNM When: Please call the office to schedule your follow up appointment in 6 weeks. If you had high blood pressure please call to schedule an appointment in 2 weeks. Test Results: Test results from this visit will be discussed in further detail at your follow-up appointment, if applicable. Discharge Plan Admission Admit Date/Time: 12/26/23 03:41 Attending Provider: Mireya Harmon Primary Care Provider: Mike Flores Discharge Orders/Prescriptions Prescriptions: No Action levothyroxine 100 mcg tablet 100 mcg PO DAILY Qty: 100 3RF PNV-DHA 27 mg iron-1 mg -300 mg capsule PO omega-3 fatty acids 1,000 mg capsule 1,000 mg PO DAILY lysine 500 mg tablet 500 mg PO DAILY calcium carbonate [Calcium 600] 600 mg calcium (1,500 mg) tablet 600 mg PO DAILY Referrals / Follow Up: Mike Flores MD [Primary Care Provider] - 12/26/23 0704 Mireya Harmon CNM CC: Dr. Mike Flores MD Signed Normal [facility] H AND P Exam - OB/GYNon H&P Exam - GLOVE BRUSHER [facility] Medical Records Department [address] [place] [address] H P Exam - GLOVE BRUSHER 12/26/23 0401 MR#: [id number] Acct: [id number] Name: AINSLEY VAZQUEZ Rep #: [id number] : 1995 28 From: Mireya Harmon CNM PCP: Dr. Mike Flores MD Status:ADM IN Location: [id number] HPI - General General Date of Admission: 12/26/23 Date of Service: 12/26/23 HPI Narrative AINSLEY VAZQUEZ, is a 28 F 38.5 weeks who presents to unit with contractions. History of C/S for breech with her first delivery and has had 3 successful VBACs. Maternal Data Information HARSHAD Calculator Estimated Delivery Date Method Current WG Current Estimate 01/04/24 LMP (Certain) 38w 5d Final HARSHAD: 01/04/24 Final HARSHAD Source: US >20 weeks Gestational age: 38.5 [facility] Medical History (Updated 12/26/23 @ 03:57 by Sherin Gtz) Superficial varicosities Vaginal delivery Hypothyroidism Home Medications ???Medication ???Instructions ???Recorded ???Last Taken ???Type calcium carbonate (Calcium 600) 600 mg PO DAILY 07/17/23 12/25/23 22:00 History lysine 500 mg tablet 500 mg PO DAILY 07/17/23 12/25/23 22:00 History multivitamin no.47-iron fum 27 cap PO 07/17/23 12/25/23 22:00 History mg-folate no.1 1 mg-dha 300 mg capsule (PNV-DHA) omega-3 fatty acids 1,000 mg 1,000 mg PO DAILY 07/17/23 12/25/23 22:00 History capsule levothyroxine 100 mcg tablet 100 mcg PO DAILY #100 tabs 07/30/23 12/25/23 06:00 Rx Allergy/AdvReac Type Severity Reaction Status Date / Time No Known Allergies Allergy Verified 12/26/23 02:07 Family History Brother Thyroid disorder Mother Thyroid cancer Grandmother Diabetes Colon cancer Paternal Sister Diabetes Grandfather Colon cancer paternal Cancer maternal- melanoma Other Breast cancer Surgical History Status post vaginal delivery Previous delivery affecting S/P S/P tonsillectomy Social History adopted: No household members: family housing: house number of children: 4 current occupational status: unemployed 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 pets and animals: No history of recent travel: No sexually active: Yes Smoking Status: Never smoker alcohol intake: never substance use type: does not use well-balanced diet: daily or most days caffeine: Yes Type: coffee Number of servings: 2 eating out: rarely or never during the past year weight has: remained stable what type of physical activity do you participate in: none bernard/spiritism: Muslim seatbelt use: sometimes do you feel safe at home: Yes additional social history: Exqmawq-Pdak-QarndygBarrera lara Patient is a stay at home mom History 5 Elective abortions Hx Para 4 Spontaneous abortions Hx # Term Pregnancies Ectopic pregnancies Hx # Pregnancies Multiple births # of living children 4 Past Pregnancies Del. Date Name GA/Weeks Outcome Route Bth Weight Gen Labor Lgth Anesthesia Del Locatn Provider FOB 07/20/16 Melony 40 live - full term 7 lbs 12 oz Male Dereck Pan 12/06/17 Yazan 37 live - full term 6lbs 10oz Male 8 hours none [facility] S EM Jose 05/29/19 Joel 39 live - full term 8lbs 2oz Male [facility] S EM 11/15/21 Dom 39 live - full term Male [facility] Chung Soni Delivery Date: 02/26/17 Last Updated by: America Crabtree MD [facility], was told by dr kiser CPD Delivery Date: 12/06/17 Last Updated by: Aleshia French No issues during or delivery. Visit Details Expected Delivery Route/Plan Labor Preferences- CB/BF classes: no labor support person: Jose labor intervention preferences: [] pain management options preferred: limited cut cord/dad catch: cord : yes PP control planned: discussed discussed possible routes of delivery and associated risks: [] special requests: [] Plans Covid status: [] Flu vaccine: [] Tdap vaccine: declines Rhogam: NA LARC form signed: yes Problem list reviewed and updated with the most current plan of care details and appropriate orders placed. Relevant counseling for the gestational age provided. Continue routine care and follow up unless otherwise noted in visit notes/problem list details OB Flowsheet Initial Weight: Not Recorded Date -???-???-???-???-??? -???-???-???-???-??? -???-???- EGA Weight BP Urine Prot -???-???-???-???-??? -???-???-???-???-??? -???-???- Glucose FHR FuHt Pres Dilation -???-???-???-???-??? -???-???-???-???-??? -???-???- Effaced St Visit Note 07/20/23 -???-???-???-???-??? -?? (more content not included)... Normal [facility] L509.8000on 12-26-2023 Syphilis Abs Non-Reactive Normal [facility] Comment on above: Performed By: #### L 509.8000 #### [facility] [address] [place], [address] Operative Reporton 4 Operative Report [facility] Medical Records Department [address] [place] [address] Operative Report 12/26/23 0658 MR#: [id number] Acct: [id number] Name: AINSLEY VAZQUEZ Rep #: [id number] : 1995 28 From: Mireya Harmon CNM PCP: Dr. Mike Flores MD Status:ADM IN Location: [id number] Assessment Plan (1) Vaginal delivery following previous section, delivered: (2) Active labor: (3) FH: cleft palate: COMMENT: Husbands sister (4) Varicose veins during : COMMENT: right leg above and below knee. (5) Previous section: COMMENT: x 3 (6) Supervision of high-risk : QUALIFIERS: Trimester: second trimester Qualified Code(s): O09.92 - Supervision of high risk , unspecified, second trimester COMMENT: PRR , HARSHAD 01/06/24 PC Yazan Ty Jonathan, Ian Jose (7) : QUALIFIERS: Weeks of gestation: 38 weeks Qualified Code(s): Z3A.38 - 38 weeks gestation of COMMENT: Neg GBS Did PN labs and 28 wk labs 09/28/23. States will only come to office visit every 4 weeks. 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 Delivered the head in RANDOLPH presentation. The head was delivered atraumatically and no nuchal cord was identified. The anterior and posterior shoulders delivered without complication followed by the rest of the infant and the was placed on the maternal abdomen. Delayed cord clamping was employed for approximately 3 minutes. Cord was clamped and cut and gentle traction was applied to the cord and the placenta delivered spontaneously. Immediately following, it was noted to be intact with a 3 vessel cord. The perineum and vagina were inspected and noted to have a second degree laceration which was repaired with 3-0 Vicryl in the usual fashion. EBL was 200cc. Patient and infant tolerated delivery well. Apgars 8/9. Dr Saavedra notified of vaginal delivery and orders reviewed. Physician agrees with current plan of care. Operative Information Date of Procedure: 12/26/23 Pre-Operative Diagnosis: See AP comments Post-Operative Diagnosis: Same Surgery / Procedure Performed: knobber #1: Mireya Harmon Type of Anesthesia: None Estimated Blood Loss: 200 Time of Delivery: 06:36 Findings Presentation: Vertex Amniotic Membrane Rupture Type: Artificial Amniotic Fluid Description: Clear Placental Delivery Description: Spontaneous Placenta Disposition: [facility] Cord Vessel Description: 3 Vessels Cord Entanglement: None A Gender: Male (1 minute): 8 (5 minute): 9 Delayed Cord Clamping: Yes Post Vaginal Delivery Medications Given After Delivery: IV Pitocin Episiotomy Description: None Laceration: 2nd degree Complication Complications: None Multi Select Codes Urinary/Genital Urinary/Genital CPT Codes: 19589 Vaginal Delivery [facility] 12/26/23 0701 Cosigner Signature (if applicable): CC: LAURA Harmon; Dr. Mike Flores MD Signed ADDENDUM by LAURA Harmon on 12/26/23 at 0706 Addendum 12/26/23 0706 Cosigner Signature (if applicable): cc: LAURA Harmon; Dr. Mike Flores MD * Signed ADDENDUM by LAURA Harmon on 12/26/23 at 0706 Addendum 12/26/23 0706 Cosigner Signature (if applicable): cc: LAURA Harmon; Dr. Mike Flores MD * Signed Normal [facility] Type AND Screenon 12-26-2023 ABO and Rh group Nom (Bld) Blood group A Rh(D) positive Normal [facility] Comment on above: Order Comment: Labor Performed By: #### L 100.0100, BTS #### [facility] [address] [place], [address] [employer] Office Visit Reporton 12-23-2023 [employer] Office Visit Report [facility] [address] [place] [address] OFFICE VISIT Date of Service: 12/23/23 MR#: [id number] Acct: [id number] Name: AINSLEY VAZQUEZ Rep #: [id number] : 1995 Provider: LAURA Andrade ams Age/Sex: 28/F Location[place] [facility] Status: Signed Intake Vital Signs 10/27/23 11:25 11/12/23 07:27 12/10/23 07:46 12/23/23 07:16 12/23/23 07:23 Height 5 ft 5 in 5 ft 5 in 5 ft 5 in 5 ft 5 in 5 ft 5 in Weight: 187 lb 2 oz BMI 31.1 BP 115/81 H Intake Visit Reasons: 37 WK OB Release And Technical Records Clerk Required: No Is patient in pain?: No Allergies No Known Allergies Allergy (Verified 12/23/23 07:15) Medications ???Medication ???Instructions ???Recorded ???Confirmed ???Type calcium carbonate (Calcium 600) 600 mg PO DAILY 07/17/23 12/23/23 History lysine 500 mg tablet 500 mg PO DAILY 07/17/23 12/23/23 History multivitamin no.47-iron fum 27 cap PO 07/17/23 12/23/23 History mg-folate no.1 1 mg-dha 300 mg capsule (PNV-DHA) omega-3 fatty acids 1,000 mg 1,000 mg PO DAILY 07/17/23 12/23/23 History capsule levothyroxine 100 mcg tablet 100 mcg PO DAILY #100 tabs 07/30/23 12/23/23 Rx Last Menstrual Period: 04/01/23 Current gender identity: female Zika: Zika virus screening: Negative PFSH PFSH Medical History Vaginal delivery Hypothyroidism Surgical History Status post vaginal delivery Previous delivery affecting S/P S/P tonsillectomy Family History Brother Thyroid disorder Mother Thyroid cancer Grandmother Diabetes Colon cancer Paternal Sister Diabetes Grandfather Colon cancer paternal Cancer maternal- melanoma Other Breast cancer Social History adopted: No household members: family housing: house number of children: 4 current occupational status: unemployed 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 pets and animals: No history of recent travel: No sexually active: Yes Smoking Status: Never smoker alcohol intake: never substance use type: does not use well-balanced diet: daily or most days caffeine: Yes Type: coffee Number of servings: 2 eating out: rarely or never during the past year weight has: remained stable what type of physical activity do you participate in: none bernard/spiritism: Muslim seatbelt use: sometimes do you feel safe at home: Yes additional social history: Ktyjvpy-Ytnz-PmogitmBarrera lara Patient is a stay at home mom History 5 Elective abortions Hx Para 4 Spontaneous abortions Hx # Term Pregnancies Ectopic pregnancies Hx # Pregnancies Multiple births # of living children 4 Past Pregnancies Del. Date Name GA/Weeks Outcome Route Bth Weight Infant Gen Labor Lgth Anesthesia Del Locatn Provider FOB 07/20/16 Melony 40 live - full term 7 lbs 12 oz Male Dereck Pan 12/06/17 Yazan 37 live - full term 6lbs 10oz Male 8 hours none [facility] Jose 05/29/19 Joel 39 live - full term 8lbs 2oz Male [facility] S EM 11/15/21 Dom 39 live - full term Male [facility] Chung Velde Delivery Date: 07/20/16 Last Updated by: America Crabtree MD [facility], was told by dr kiser CPD Delivery Date: 12/06/17 Last Updated by: Aleshia French No issues during or delivery. HPI 37 WK OB Details: AINSLEY VAZQUEZ is a 28 year old who presents for routine OB visit. OB Visit HARSHAD Calculator Estimated Delivery Date Method Current WG Current Estimate 01/04/24 LMP (Certain) 38w 2d Expected Delivery Route/Plan Labor Preferences- CB/BF classes: no labor support person: Jose labor intervention preferences: [] pain management options preferred: limited cut cord/dad catch: cord : yes PP control planned: discussed discussed possible routes of delivery and associated risks: [] special requests: [] Specific Issue/Plans Covid status: [] Flu vaccine: [] Tdap vaccine: declines Rhogam: NA LARC form signed: yes Problem list reviewed and updated with the most current plan of care details and appropriate orders placed. Relevant counseling for the gestational age provided. Continue routine care and follow up unless otherwise noted in visit notes/problem list details Initial Weight: Not Recorded Date -???-???-???-???-??? -???-???-???-???-??? -???-???- EGA Weight BP Urine Prot -???-???-???-???-??? -???-???-???-???-??? -???-???- Glucose FHR FuHt Pres Dilation -???-???-???-???-??? -???-???-???-???-??? -???-???- Effaced St Visit Note (more content not included)... Normal [facility] T4-FREE (FREE THYROXINE)on 0 10-28-2023 Free T4 [Mass/Vol] 0.90 ng/dL Normal 0.76 - 1.46 [facility] Comment on above: Result Comment: P otential of falsely elevated results when biotin concentrations are > 10 ng/mL. Performed By: #### 2 [id number] #### [facility],[address] [place] [address] THYROID PANEL [facility] OUTR EACHon 10-28-2023 FTI 3.3 Normal 1.0 - 4.0 [facility] Comment on above: Performed By: #### 2 [id number] #### [address] [address] T3u 26 % Normal 24 - 34 [facility] Comment on above: Performed By: #### 2 81158 #### [facility],[address] [place] [address] T4 [Mass/Vol] 12.5 ug/dL Normal 4.7 - 13.3 [facility] Comment on above: Performed By: #### 2 67734 #### [facility],[address] [place], [place] [id number] TSH Qn 1.26 m[IU]/L Normal 0.35 - 3.74 [facility] Comment on above: Performed By: #### 2 50027 #### [facility],[address] [place], [place] [id number] Absolute lymphocyte countOrd ered By: Adela Soni on 09-28-2023 Lymphocytes Auto (Unsp spec) [#/Vol] 1.92 10*3/uL 0.83-4.51 [facility] Automated lymphocyte count a s percentage of total leukocytesOrdered By: Adela Soni on 09-28-2023 Lymphocytes/100 WBC Auto (Unsp spec) 18.2 % 19-41 [facility] Basophil percentageOrdered B y: Adela Soni on 09-28-2023 Basophils/100 WBC (Bld) 0.7 % 0-1 [facility] Eosinophils/100 WBC (Bld) 3.3 % 0-5 [facility] Hemoglobin (Bld) [Mass/Vol] 11.4 g/dL 12.0-15.0 [facility] Monocytes/100 WBC (Bld) 6.4 % 0-10 [facility] Neutrophils (Bld) [#/Vol] 7.5 10*3/uL 2.0-7.7 [facility] Neutrophils/100 WBC (Bld) 70.6 % 47-70 [facility] WBC (Bld) [#/Vol] 10.6 10*3/uL 4.4-11.0 [facility] Determination of erythrocyte mean corpuscular volume (MCV)Ordered By: Adela Soni on 09-28-2023 MCV (RBC) [Entitic vol] 86.9 fL 81-99 [facility] Erythrocyte distribution wid th ratioOrdered By: Adela Soni on 09-28-2023 Erythrocyte distribution width (RBC) [Ratio] 13.9 % 11.6-14.6 [facility] Erythrocyte distribution wid th standard deviationOrdered By: Adela Soni on 09-28-2023 Erythrocyte distribution width (RBC) [Entitic vol] 43.5 fL 35.1-43.9 [facility] Gestational diabetes screen 1-hour screen with 50g oral glucose loadOrdered By: Mireya Harmon on 09-28-2023 Glucose 1 Hr post 50 g glucose PO [Mass/Vol] 87 mg/dL 70-140 [facility] HIV 1 and HIV-2 antibody ass ay with HIV-1 p24 antigen detectionOrdered By: Adela Soni on 09-28-2023 HIV 1+2 Ab+HIV1 p24 Ag IA Ql Non-Reactive Nonreactive [facility] Hematocrit Auto (Bld) [Volum e fraction]Ordered By: Adela Soni on 09-28-2023 Hematocrit (Bld) [Volume fraction] 34.6 % 37-47 [facility] Immature granulocytes/100 WB C Auto (Bld)Ordered By: Adela Soni on 09-28-2023 Immature granulocytes/100 WBC (Bld) 0.800 % 0.0-0.9 [facility] Comment on above: IG% - Immature Granu locytes (promyelocytes, myelocytes and metamyelocytes) > 1% indicates that a LEFT SHIFT is Present. Laboratory - Chemistry and C hemistry - challengeon 09-28-2023 Glucose Ql (U) Negative [facility] Laboratory - Hematology and Cell countsOrdered By: Adela Soni on 09-28-2023 MCH (RBC) [Entitic mass] 28.6 pg 27.0-32.0 [facility] MCHC (RBC) [Mass/Vol] 32.9 g/dL 32-36 [facility] Nucleated RBC/100 WBC (Bld) [Ratio] 0 % 0-5 [facility] Platelet mean volume (Bld) [Entitic vol] 9.6 fL 6.2-12.0 [facility] Platelets (Bld) [#/Vol] 245 10*3/uL 150-450 [facility] Laboratory - Urinalysison Protein Ql (U) Negative [facility] No Panel InformationOrdered By: Adela Soni on 09-28-2023 Hepatitis B Surface Antigen Non-Reactive Nonreactive [facility] Hepatitis C Antibody Non-Reactive Nonreactive [facility] Comment on above: Non Reactive: < 0.8 Equivocal: >/= 0.8 to < 1.0 Reactive: >/= 1.0The CDC requires that a reactive/equivocal HCV antibody result be sent out for confirmation. HCV Quant by PCR testing. Rubella IgG Antibody Reactive Nonreactive [facility] Comment on above: Antibody Results Int erpretation of Immune Status Non Reactive Presumed Non-Immune Equivocal Equivocal Reactive Presumed Immune RBC Auto (Bld) [#/Vol]Ordere d By: Adela Soni on 09-28-2023 RBC (Bld) [#/Vol] 3.98 10*6/uL 4.2-5.4 [facility] Serum Treponema species anti body detectionOrdered By: Adela Soni on 09-28-2023 Treponema sp Ab Ql (S) Non-Reactive [facility] Laboratory - Chemistry and C hemistry - challengeon 08-25-2023 Glucose Ql (U) Negative [facility] Laboratory - Urinalysison Protein Ql (U) Negative [facility] Neisseria gonorrhoeae genita l PCROrdered By: Mireya Harmon on 08-25-2023 N. gonorrhoeae DNA RUTHANN+probe Ql (Genital specimen) [facility] Chlamydia trachomatis rRNA d etection by probe and target amplification methodOrdered By: Adela Soni on 07-20-2023 C. trachomatis rRNA RUTHANN+probe Ql (Unsp spec) Negative Negative [facility] Culture, urineOrdered By: Abad Soni on 07-20-2023 Bacteria identified Cx Nom (U) Culture exhibits no growth. [facility] Bacteria identified Cx Nom (U) Culture exhibits no growth. [facility] Laboratory - Microbiology an d Antimicrobial susceptibilityOrdered By: Adela Soni on 07-20-2023 N. gonorrhoeae DNA RUTHANN+probe Ql (Unsp spec) Negative Negative [facility] Comment on above: Performed at: =[facility] [address] [id number] Director: Jada Orona MD, Phone: [phone] Laboratory - Chemistry and C hemistry - challengeOrdered By: Dr. Soni on 05-31-2022 Free T4 [Mass/Vol] 0.87 ng/dL 0.76-1.46 [facility] No Panel InformationOrdered By: Dr. Soni on 05-31-2022 Thyroid Stimulating Hormone (TSH) 2.67 uIU/mL 0.358-3.74 [facility] Absolute lymphocyte counton 11-15-2021 Lymphocytes Auto (Unsp spec) [#/Vol] 1.75 10*3/uL 0.83-4.51 [facility] Work Phone: Basophil percentageon 2021 C. trachomatis DNA RUTHANN+probe Ql (Unsp spec) Negative Negative [facility] Work Phone: Basophils/100 WBC (Bld) 0.5 % 0-1 [facility] Work Phone: Eosinophils/100 WBC (Bld) 1.7 % 0-5 [facility] Work Phone: Neutrophils (Bld) [#/Vol] 7.2 10*3/uL 2.0-7.7 [facility] Work Phone: Neutrophils/100 WBC (Bld) 71.6 % 47-70 [facility] Work Phone: WBC (Bld) [#/Vol] 10.1 10*3/uL 4.4-11.0 [facility] Work Phone: Blood erythrocytes count (nu mber/volume)on 11-15-2021 RBC (Bld) [#/Vol] 4.29 10*6/uL 4.2-5.4 [facility] Work Phone: Blood hemoglobin measurement (mass/volume)on 11-15-2021 Hemoglobin (Bld) [Mass/Vol] 12.4 g/dL 12.0-15.0 [facility] Work Phone: Blood lymphocytes/100 leukoc yteson 11-15-2021 Lymphocytes/100 WBC (Bld) 17.3 % 19-41 [facility] Work Phone: Blood monocytes/100 leukocyt eson 11-15-2021 Monocytes/100 WBC (Bld) 7.4 % 0-10 [facility] Work Phone: Blood platelet mean volumeon 11-15-2021 Platelet mean volume (Bld) [Entitic vol] 10.1 fL 6.2-12.0 [facility] Work Phone: [phone] Determination of erythrocyte mean corpuscular volume (MCV)on 11-15-2021 MCV (RBC) [Entitic vol] 88.1 fL 81-99 [facility] Work Phone: [phone] HIV 1 and HIV-2 antibody ass ay with HIV-1 p24 antigen detectionon 11-15-2021 HIV 1+2 Ab+HIV1 p24 Ag IA Ql Non-Reactive Nonreactive [facility] Work Phone: [phone] Hematocrit Auto (Bld) [Volum e fraction]on 11-15-2021 Hematocrit (Bld) [Volume fraction] 37.8 % 37-47 [facility] Work Phone: Laboratory - Hematology and Cell countson 11-15-2021 Erythrocyte distribution width (RBC) [Entitic vol] 42.3 fL 35.1-43.9 [facility] Work Phone: [phone] Erythrocyte distribution width (RBC) [Ratio] 13.2 % 11.6-14.6 [facility] Work Phone: [phone] Immature granulocytes/100 WBC (Bld) 1.500 % 0.0-0.9 [facility] Work Phone: [phone] Comment on above: IG% - Immature Granu locytes (promyelocytes, myelocytes and metamyelocytes) > 1% indicates that a LEFT SHIFT is Present. MCH (RBC) [Entitic mass] 28.9 pg 27.0-32.0 [facility] Work Phone: [phone] Nucleated RBC/100 WBC (Bld) [Ratio] 0 % 0-5 [facility] Work Phone: [phone] MCHC Auto (RBC) [Mass/Vol]on 11-15-2021 MCHC (RBC) [Mass/Vol] 32.8 g/dL 32-36 [facility] Work Phone: Neisseria gonorrhoeae detect ion by PCRon 11-15-2021 N. gonorrhoeae DNA RUTHANN+probe Ql (Cervical mucus) Negative Negative [facility] Work Phone: No Panel Informationon 11-15 Hepatitis B Surface Antigen Non-Reactive Nonreactive [facility] Work Phone: Hepatitis C Antibody Non-Reactive Nonreactive [facility] Work Phone: Comment on above: Non Reactive: < 0.8 Equivocal: >/= 0.8 to < 1.0 Reactive: >/= 1.0The CDC recommends that a reactive/equivocal HCV antibody result be followed up by the HCV Nucleic Acid Amplificationtest (869466) Platelets bldon 11-15-2021 Platelets (Bld) [#/Vol] 226 10*3/uL 150-450 [facility] Work Phone: Serum Treponema species anti body detectionon 11-15-2021 Treponema sp Ab Ql (S) Non-Reactive [facility] Work Phone: Laboratory - Chemistry and C hemistry - challengeon 11-12-2021 Glucose Ql (U) Negative [facility] Work Phone: Laboratory - Urinalysison Protein Ql (U) Negative [facility] Work Phone: Laboratory - Chemistry and C hemistry - challengeon 11-06-2021 Glucose Ql (U) Negative [facility] Work Phone: Laboratory - Urinalysison Protein Ql (U) Negative [facility] Work Phone: Laboratory - Chemistry and C hemistry - challengeon 10-28-2021 Glucose Ql (U) Negative [facility] Work Phone: Laboratory - Urinalysison Protein Ql (U) Negative [facility] Work Phone: [phone] No Panel Informationon 10-28 Group B Streptococcus Culture Group B Beta Streptococcus is not isolated. [facility] Work Phone: Laboratory - Chemistry and C hemistry - challengeon 10-14-2021 Glucose Ql (U) Negative [facility] Work Phone: Laboratory - Urinalysison Protein Ql (U) Negative [facility] Work Phone: Laboratory - Chemistry and C hemistry - challengeon 10-03-2021 Glucose Ql (U) Negative [facility] Work Phone: Laboratory - Urinalysison Protein Ql (U) Negative [facility] Work Phone: Laboratory - Chemistry and C hemistry - challengeon 09-09-2021 Glucose Ql (U) Negative [facility] Work Phone: Laboratory - Urinalysison Protein Ql (U) Negative [facility] Work Phone: Absolute lymphocyte counton 08-13-2021 Lymphocytes Auto (Unsp spec) [#/Vol] 1.88 10*3/uL 0.83-4.51 [facility] Work Phone: Basophil percentageon 2021 Basophils/100 WBC (Bld) 0.4 % 0-1 [facility] Work Phone: Eosinophils/100 WBC (Bld) 2.6 % 0-5 [facility] Work Phone: Neutrophils (Bld) [#/Vol] 7.1 10*3/uL 2.0-7.7 [facility] Work Phone: Neutrophils/100 WBC (Bld) 71.4 % 47-70 [facility] Work Phone: WBC (Bld) [#/Vol] 9.9 10*3/uL 4.4-11.0 [facility] Work Phone: Blood erythrocytes count (nu mber/volume)on 08-13-2021 RBC (Bld) [#/Vol] 4.01 10*6/uL 4.2-5.4 [facility] Work Phone: Blood hemoglobin measurement (mass/volume)on 08-13-2021 Hemoglobin (Bld) [Mass/Vol] 11.6 g/dL 12.0-15.0 [facility] Work Phone: Blood lymphocytes/100 leukoc yteson 08-13-2021 Lymphocytes/100 WBC (Bld) 19.0 % 19-41 [facility] Work Phone: Blood monocytes/100 leukocyt eson 08-13-2021 Monocytes/100 WBC (Bld) 5.9 % 0-10 [facility] Work Phone: Blood platelet mean volumeon 08-13-2021 Platelet mean volume (Bld) [Entitic vol] 9.8 fL 6.2-12.0 [facility] Work Phone: Determination of erythrocyte mean corpuscular volume (MCV)on 08-13-2021 MCV (RBC) [Entitic vol] 87.3 fL 81-99 [facility] Work Phone: Gestational diabetes screen 1-hour screen with 50g oral glucose loadon 08-13-2021 Glucose 1 Hr post 50 g glucose PO [Mass/Vol] 77 mg/dL 70-140 [facility] Work Phone: Hematocrit Auto (Bld) [Volum e fraction]on 08-13-2021 Hematocrit (Bld) [Volume fraction] 35.0 % 37-47 [facility] Work Phone: Laboratory - Chemistry and C hemistry - challengeon 08-13-2021 Glucose Ql (U) Negative [facility] Work Phone: [phone] Laboratory - Hematology and Cell countson 08-13-2021 Erythrocyte distribution width (RBC) [Entitic vol] 42.9 fL 35.1-43.9 [facility] Work Phone: [phone] Erythrocyte distribution width (RBC) [Ratio] 13.6 % 11.6-14.6 [facility] Work Phone: Immature granulocytes/100 WBC (Bld) 0.700 % 0.0-0.9 [facility] Work Phone: Comment on above: IG% - Immature Granu locytes (promyelocytes, myelocytes and metamyelocytes) > 1% indicates that a LEFT SHIFT is Present. MCH (RBC) [Entitic mass] 28.9 pg 27.0-32.0 [facility] Work Phone: Nucleated RBC/100 WBC (Bld) [Ratio] 0 % 0-5 [facility] Work Phone: Laboratory - Urinalysison Protein Ql (U) Negative [facility] Work Phone: MCHC Auto (RBC) [Mass/Vol]on 08-13-2021 MCHC (RBC) [Mass/Vol] 33.1 g/dL 32-36 [facility] Work Phone: Platelets bldon 08-13-2021 Platelets (Bld) [#/Vol] 234 10*3/uL 150-450 [facility] Work Phone: Laboratory - Chemistry and C hemistry - challengeon 07-01-2021 Glucose Ql (U) Negative [facility] Work Phone: Laboratory - Urinalysison Protein Ql (U) Negative [facility] Work Phone: Absolute lymphocyte counton 05-27-2021 Lymphocytes Auto (Unsp spec) [#/Vol] 1.94 10*3/uL 0.83-4.51 [facility] Work Phone: Basophil percentageon 2021 Basophils/100 WBC (Bld) 0.4 % 0-1 [facility] Work Phone: Eosinophils/100 WBC (Bld) 3.1 % 0-5 [facility] Work Phone: Neutrophils (Bld) [#/Vol] 6.6 10*3/uL 2.0-7.7 [facility] Work Phone: Neutrophils/100 WBC (Bld) 70.6 % 47-70 [facility] Work Phone: WBC (Bld) [#/Vol] 9.4 10*3/uL 4.4-11.0 [facility] Work Phone: Blood erythrocytes count (nu mber/volume)on 05-27-2021 RBC (Bld) [#/Vol] 4.45 10*6/uL 4.2-5.4 [facility] Work Phone: Blood hemoglobin measurement (mass/volume)on 05-27-2021 Hemoglobin (Bld) [Mass/Vol] 12.9 g/dL 12.0-15.0 [facility] Work Phone: Blood lymphocytes/100 leukoc yteson 05-27-2021 Lymphocytes/100 WBC (Bld) 20.7 % 19-41 [facility] Work Phone: Blood monocytes/100 leukocyt eson 05-27-2021 Monocytes/100 WBC (Bld) 4.9 % 0-10 [facility] Work Phone: Blood platelet mean volumeon 05-27-2021 Platelet mean volume (Bld) [Entitic vol] 9.4 fL 6.2-12.0 [facility] Work Phone: Cervical or vagninal specime n microscopic examination by cytology stain (reported ason 05-27-2021 Cytology report Cyto stain Doc (Cvx/Vag) Comment [facility] Work Phone: Comment on above: The Pap smear is a s creening test designed to aid in thedetection of premalignant and malignant conditions of theuterine cervix. It is not a diagnostic procedure andshould not be used as the sole means of detecting cervicalcancer. Both false-positive and false-negative reports dooccur. Culture, urineon 05-27-2021 Bacteria identified Cx Nom (U) Culture exhibits no growth. [facility] Work Phone: Determination of erythrocyte mean corpuscular volume (MCV)on 05-27-2021 MCV (RBC) [Entitic vol] 85.2 fL 81-99 [facility] Work Phone: [phone] Hematocrit Auto (Bld) [Volum e fraction]on 05-27-2021 Hematocrit (Bld) [Volume fraction] 37.9 % 37-47 [facility] Work Phone: [phone] Laboratory - Chemistry and C hemistry - challengeon 05-27-2021 Free T4 [Mass/Vol] 0.85 ng/dL 0.76-1.46 [facility] Work Phone: [phone] Laboratory - Cytologyon Inventory Representative Cyto stain Nom (Cvx/Vag) [ID] Comment [facility] Work Phone: [phone] Comment on above: José Manuel Roberts totechnologist (ASCP) Laboratory - Hematology and Cell countson 05-27-2021 Erythrocyte distribution width (RBC) [Entitic vol] 40.2 fL 35.1-43.9 [facility] Work Phone: [phone] Erythrocyte distribution width (RBC) [Ratio] 12.9 % 11.6-14.6 [facility] Work Phone: [phone] Immature granulocytes/100 WBC (Bld) 0.300 % 0.0-0.9 [facility] Work Phone: [phone] Comment on above: IG% - Immature Granu locytes (promyelocytes, myelocytes and metamyelocytes) > 1% indicates that a LEFT SHIFT is Present. MCH (RBC) [Entitic mass] 29.0 pg 27.0-32.0 [facility] Work Phone: [phone] Nucleated RBC/100 WBC (Bld) [Ratio] 0 % 0-5 [facility] Work Phone: [phone] Laboratory - Miscellaneous t estson 05-27-2021 Service comment (Unsp spec) [Interp] Comment [facility] Work Phone: [phone] Comment on above: This liquid based Th inPrep(R) pap test was screened withthe use of an image guided system. Service comment (Unsp spec) [Interp] . [facility] Work Phone: [phone] MCHC Auto (RBC) [Mass/Vol]on 05-27-2021 MCHC (RBC) [Mass/Vol] 34.0 g/dL 32-36 [facility] Work Phone: No Panel Informationon 05-27 Human Papillomavirus Screen Comment [facility] Work Phone: Comment on above: The HPV DNA reflex c emma were not met with this specimenresult therefore, no HPV testing was performed.Performed at: [address] [id number] Director: Jada Orona MD, Phone: [phone] Pap Smear QC Review Comment [facility] Work Phone: Comment on above: Velia Styles Cytot echnologist (ASCP) Pathology report final diagnosis Narrative Comment [facility] Work Phone: Comment on above: NEGATIVE FOR INTRAEP ITHELIAL LESION OR MALIGNANCY.FUNGAL ORGANISMS MORPHOLOGICALLY CONSISTENT WITH ELÍAS SPECIES AREPRESENT.THIS SPECIMEN WAS RESCREENED PART OF OUR CHURN OPERATOR MARGARINE PROGRAM. Rubella IgG Antibody Reactive Nonreactive [facility] Work Phone: Comment on above: Antibody Results Int erpretation of Immune Status Non Reactive Presumed Non-Immune Equivocal Equivocal Reactive Presumed Immune Thyroid Stimulating Hormone (TSH) 1.38 uIU/mL 0.358-3.74 [facility] Work Phone: Platelets bldon 05-27-2021 Platelets (Bld) [#/Vol] 250 10*3/uL 150-450 [facility] Work Phone: Free T3on 2020 Free T3 [Mass/Vol] 3.7 pg/mL Normal 2.3-4.1 [facility] Comment on above: Performed By: #### F REET3 #### [facility] Routine Lab [address] [place], [place] [address] Laboratory - Cytologyon 08-24 Microscopic observation Cyto stain Nom (Cvx) Normal [facility] Laboratory - Hematology and Cell countson 07-21-2016 Basophils (Bld) [#/Vol] 0.00 {3/UL} Normal 0.00 - 0.10 {3/UL} [facility]. Work Phone: Basophils/100 WBC (Bld) 0.2 % Normal 0.0 - 2.0 % [facility].; [place] [employer] [facility] [employer] Work Phone: CBC W Auto Differential panel (Bld) CBC Normal [facility].; [place] [employer] [facility]. Work Phone: Eosinophils (Bld) [#/Vol] 0.20 {3/UL} Normal 0.00 - 0.50 {3/UL} [facility].; [facility], [facility]. Work Phone: Eosinophils/100 WBC (Bld) 0.9 % Normal 0.0 - 7.0 % [facility].; [place] [employer]. Work Phone: Erythrocyte distribution width (RBC) [Ratio] 13.9 % Normal 12.0 - 15.6 % [facility].; [place] [employer] Work Phone: Hematocrit (Bld) [Volume fraction] 40.7 % Normal 34.0 - 46.0 % [facility]; [place] [employer] [facility]. Work Phone: Hemoglobin (Bld) [Mass/Vol] 13.6 g/dL Normal 12.0 - 16.0 g/dL [facility].; [place] [employer]. Work Phone: Lymphocytes (Bld) [#/Vol] 2.00 {3/UL} Normal 0.80 - 2.80 {3/UL} [facility].; [place] [employer] Work Phone: Lymphocytes/100 WBC (Bld) 12.3 % Abnormal 20.0 - 45.0 % [facility].; [place] [employer]. Work Phone: MCH (RBC) [Entitic mass] 28 pg Normal 27 - 33 pg [facility].; [place] [employer] [facility] Work Phone: MCHC (RBC) [Mass/Vol] 33 {X10_3} Normal 32 - 3 6 {X10_3} [facility]; [place] [employer]. Work Phone: MCV (RBC) [Entitic vol] 85 fL Normal 80 - 99 fL H [facility]; [place] [employer] [facility] Work Phone: Monocytes (Bld) [#/Vol] 1.00 {3/UL} Normal 0.20 - 1.00 {3/UL} [facility]; [place] [employer] Work Phone: Monocytes/100 WBC (Bld) 5.9 % Normal 0.0 - 10.0 % [facility]; [place] [employer] Work Phone: Morphology Dejan (Bld) [Interp] N/A Normal [facility]; [place] [employer] Work Phone: Neutrophils (Bld) [#/Vol] 13.20 {3/UL} Abnormal 1.50 - 7.10 {3/UL} [facility]; [place] [employer] Work Phone: Neutrophils/100 WBC (Bld) 80.7 % Abnormal 46.0 - 76.0 % [facility]; [employer] Work Phone: Platelet mean volume (Bld) [Entitic vol] 9.4 fL Normal 6.6 - 10.5 fL [facility]; [place] [employer] Work Phone: Platelets (Bld) [#/Vol] 207 {3/UL} Normal 150 - 450 {3/UL} [facility]; [place] [employer] Work Phone: RBC (Bld) [#/Vol] 4.78 {6/UL} Normal 4.10 - 5.3 0 {6/UL} [facility]; [place] [employer] [facility]. Work Phone: WBC (Bld) [#/Vol] 16.3 {3/UL} Abnormal 4.5 - 10.8 {3/UL} [facility]; [facility]. Work Phone: No Panel Informationon 07-21 MANUAL DIFF N/A Normal [facility]; [place] [employer] [facility]. Work Phone: Laboratory - Blood bankon ABO group Nom (Bld) A Normal [facility]; [place] [employer] [facility] Work Phone: Blood group antibody screen Ql Negative Normal [facility]; [place] [employer] [facility]. Work Phone: Blood type and Indirect antibody screen panel (Bld) Normal [facility]; [place] [employer]. Work Phone: Rh Nom (Bld) Positive Normal [facility]; [place] [employer] [facility]. Work Phone: Laboratory - Chemistry and C hemistry - challengeon 07-19-2016 Bilirubin [Mass/Vol] Negative Normal [facility]; [place] [employer] [facility]. Work Phone: Glucose [Mass/Vol] NORM Normal [facility]; [place] [employer] [facility] Work Phone: pH (Bld) 8 [pH] Normal [facility]; [place] [employer] [facility] Work Phone: Protein [Mass/Vol] Negative Normal [facility]; [place] [employer] Work Phone: Laboratory - Hematology and Cell countson 07-19-2016 Basophils (Bld) [#/Vol] 0.00 {3/UL} Normal 0.00 - 0.10 {3/UL} [facility]; [facility] Work Phone: Basophils/100 WBC (Bld) 0.4 % Normal 0.0 - 2.0 % [facility]; [facility] Work Phone: CBC W Auto Differential panel (Bld) CBC Normal [facility]; [facility] Work Phone: Eosinophils (Bld) [#/Vol] 0.10 {3/UL} Normal 0.00 - 0.50 {3/UL} [facility]; [facility] Work Phone: Eosinophils/100 WBC (Bld) 1.1 % Normal 0.0 - 7.0 % [facility]; [facility] Work Phone: Erythrocyte distribution width (RBC) [Ratio] 13.6 % Normal 12.0 - 15.6 % [facility]; [place] [employer] [facility] Work Phone: Hematocrit (Bld) [Volume fraction] 40.2 % Normal 34.0 - 46.0 % [facility]; [place] [employer] [facility] Work Phone: Hemoglobin (Bld) [Mass/Vol] 13.9 g/dL Normal 12.0 - 16.0 g/dL [facility]; [place] [employer] [facility]. Work Phone: Lymphocytes (Bld) [#/Vol] 2.20 {3/UL} Normal 0.80 - 2.80 {3/UL} [facility].; [place] [employer] [facility] Work Phone: Lymphocytes/100 WBC (Bld) 17.3 % Abnormal 20.0 - 45.0 % [facility]; [place] [employer] [facility] Work Phone: MCH (RBC) [Entitic mass] 29 pg Normal 27 - 33 pg [facility]; [facility] Work Phone: MCHC (RBC) [Mass/Vol] 35 {X10_3} Normal 32 - 3 6 {X10_3} [facility]; [facility] Work Phone: MCV (RBC) [Entitic vol] 83 fL Normal 80 - 99 fL [facility]; [facility] Work Phone: Monocytes (Bld) [#/Vol] 0.80 {3/UL} Normal 0.20 - 1.00 {3/UL} [facility]; [facility], [facility] Work Phone: Monocytes/100 WBC (Bld) 6.7 % Normal 0.0 - 10.0 % [facility]; [facility], [facility]. Work Phone: Morphology Dejan (Bld) [Interp] N/A Normal [facility]; [facility] Work Phone: Neutrophils (Bld) [#/Vol] 9.40 {3/UL} Abnormal 1.50 - 7.10 {3/UL} [facility]; [place] [employer] [facility], [facility]. Work Phone: Neutrophils/100 WBC (Bld) 74.5 % Normal 46.0 - 76.0 % [facility]; [place] [employer] [facility] Work Phone: Platelet mean volume (Bld) [Entitic vol] 10.5 fL Normal 6.6 - 10.5 fL [facility]; [place] [employer] [facility] Work Phone: [phone] Platelets (Bld) [#/Vol] 212 {3/UL} Normal 150 - 450 {3/UL} [facility]; [place] [employer] [facility] Work Phone: RBC (Bld) [#/Vol] 4.82 {6/UL} Normal 4.10 - 5.3 0 {6/UL} [facility].; [employer]. Work Phone: WBC (Bld) [#/Vol] 12.6 {3/UL} Abnormal 4.5 - 10.8 {3/UL} [facility].; [employer]. Work Phone: WBC (Bld) [#/Vol] Negative Normal [facility].; [employer]. Work Phone: Laboratory - Microbiology an d Antimicrobial susceptibilityon 07-19-2016 Bacteria identified Cx Nom (Unsp spec) NONE Normal [facility]; [employer]. Work Phone: Laboratory - Specimen inform ationon 07-19-2016 Clarity (U) clear Normal [facility]; [employer]. Work Phone: Color (U) p.yel Normal [facility]; [employer]. Work Phone: Specimen type Nom (Spec) Ugalde Normal [facility]; [employer]. Work Phone: Laboratory - Urinalysison Crystals LM Nom (Urine sed) NONE Normal [facility]; [employer]. Work Phone: Nitrite Ql (U) Negative Normal [facility].; [employer]. Work Phone: Urinalysis dipstick W Reflex Microscopic panel (U) URINALYSIS Normal [facility]; [employer]. Work Phone: Yeast LM Ql (Urine sed) NONE Normal [facility]; [employer]. Work Phone: No Panel Informationon 07-19 Amorphous NONE Normal [facility].; [employer]. Work Phone: Blood 10 Abnormal [employer].; [employer] Work Phone: Casts NONE Normal [employer].; [employer] Work Phone: Epi Cells NONE Normal [employer].; [employer], [employer]. Work Phone: Ketone Negative Normal [employer].; [employer] Work Phone: MANUAL DIFF N/A Normal [employer].; [employer]. Work Phone: Microscopic SEE BELOW Normal [employer].; [employer], [employer]. Work Phone: Mucous NONE Normal [employer].; [employer], [employer]. Work Phone: Rbc 0-5 Abnormal 0 - 3 [employer].; [employer]. Work Phone: Sp [place] 1.005 Abnormal [employer].; [employer], [employer]. Work Phone: Urobilinog NORM Normal [employer].; [employer], [employer]. Work Phone: Wbc NONE Normal 0 - 5 [employer].; [employer], [employer]. Work Phone: Laboratory - Urinalysison Glucose Test strip (U) [Mass/Vol] Negative Normal [employer].; [employer]. Protein Ql (U) Negative Normal [employer].; [employer]. Laboratory - Urinalysison Glucose Test strip (U) [Mass/Vol] Negative Normal [employer].; [employer], [employer]. Protein Ql (U) Negative Normal [employer].; [employer]. Laboratory - Urinalysison Glucose Test strip (U) [Mass/Vol] Negative Normal [place] [employer] [facility].; [employer]. Protein Ql (U) Negative Normal [employer].; [employer] Laboratory - Microbiology an d Antimicrobial susceptibilityon 06-13-2016 S. agalactiae Org specific cx Ql (Vag fld) CULTURE VAGINAL GROUP B Normal [place] [employer] [facility].; [employer]. Laboratory - Urinalysison Glucose Test strip (U) [Mass/Vol] Negative Normal [place] [employer].; [employer]. Protein Ql (U) Negative Normal [employer].; [employer]. Laboratory - Urinalysison Glucose Test strip (U) [Mass/Vol] Negative Normal [place] [employer].; [employer]. Protein Ql (U) Negative Normal [employer].; [employer]. Laboratory - Chemistry and C hemistry - challengeon 03-31-2016 Free T3 [Mass/Vol] 3.1 pg/mL Normal 2.3 - 4.2 pg/mL [place] [employer] [facility].; [employer]. Free T4 [Mass/Vol] 0.7 ng/dL Abnormal 0.8 - 1.8 ng/dL [place] [employer] [facility].; [employer]. Glucose 1 Hr post 50 g glucose PO [Mass/Vol] 60 mg/dL Abnormal [employer].; [employer]. TSH Qn 0.39 m[IU]/L Abnormal 0.40 - 4.50 {mIU/L} [place] [employer].; [employer]. Laboratory - Hematology and Cell countson 03-31-2016 Hemoglobin (Bld) [Mass/Vol] 11.9 g/dL Normal 11.7 - 15.5 g/dL [place] [employer].; [employer]. Laboratory - Urinalysison Glucose Test strip (U) [Mass/Vol] Negative Normal [employer].; [employer]. Protein Ql (U) Negative Normal [employer].; [employer]. Laboratory - Urinalysison Glucose Test strip (U) [Mass/Vol] Negative Normal [employer]; [employer] Protein Ql (U) Negative Normal [place] [employer]; [employer]. Laboratory - Blood bankon ABO group Nom (Bld) A Normal [facility]; [employer] Blood group antibody screen Ql Negative Normal [employer]; [employer]. Laboratory - Chemistry and C hemistry - challengeon 01-21-2016 Bilirubin Ql (U) Negative Normal [employer]; [employer] Free T3 [Mass/Vol] 3.1 pg/mL Normal 2.3 - 4.2 pg/mL [place] [employer] [facility]; [employer] Free T4 [Mass/Vol] 0.9 ng/dL Normal 0.8 - 1.8 ng/dL [employer]; [employer] Free T4 index Calc [Mass/Vol] 1.95 Normal 1.4 - 3.8 [place] [employer]; [employer] Work Phone: Ketones Ql (U) Negative Normal [place]; [employer] pH (U) 6.5 [pH] Normal [employer] [facility]; [employer] Specific gravity (U) [Rel density] 1.025 Normal [employer]; [employer] T3RU 20.7 % Abnormal 22.0 - 35.0 % [employer]; [employer]. T4 [Mass/Vol] 9.4 ug/dL Normal 4.5 - 12.0 ug/dL [employer]; [employer]. TSH Qn 0.69 m[IU]/L Normal 0.40 - 4.50 {mIU/L} [employer]; [employer] Urobilinogen Qn (U) 0.2 mg/dL Normal [facility]; [employer] Laboratory - Hematology and Cell countson 01-21-2016 Basophils (Bld) [#/Vol] 20 {Cells}/uL Normal 0 - 200 {Cells}/uL [facility].; [place] [employer] [facility] Basophils/100 WBC (Bld) 0 % Normal 0 - 1 % H [facility].; [place] [employer] [facility] Eosinophils (Bld) [#/Vol] 350 {Cells}/uL Normal 15 - 500 {Cells}/uL [facility].; [place] [employer] [facility] Eosinophils/100 WBC (Bld) 4 % Normal 0 - 4 % [facility] [employer] [facility].; [place] [employer] [facility] Erythrocyte distribution width (RBC) [Ratio] 14.5 % Normal 11.0 - 15.0 % [facility].; [place] [employer], [employer] Hematocrit (Bld) [Volume fraction] 37.3 % Normal 35.0 - 45.0 % [facility].; [place] [employer], [facility] Hemoglobin (Bld) [Mass/Vol] 12.5 g/dL Normal 11.7 - 15.5 g/dL [facility].; [employer], [employer]. Hemoglobin Ql (U) Negative Normal [facility].; [place] [employer], [facility] Lymphocytes (Bld) [#/Vol] 1540 {Cells}/uL Normal 850 - 3900 {Cells}/uL [place] [employer] [facility].; [employer], [facility] Lymphocytes/100 WBC (Bld) 16 % Normal 12 - 47 % [place] [employer] [facility].; [employer] [facility]. MCH (RBC) [Entitic mass] 28.8 pg Normal 27.0 - 33.0 PG [place] [employer] [facility].; [facility]HealthCare Partners, [employer]. MCHC (RBC) [Mass/Vol] 33.4 g/dL Normal 32.0 - 36.0 g/dL [place] [employer] [facility].; [employer]Care Partners, [employer]. MCV (RBC) [Entitic vol] 86.2 fL Normal 80.0 - 100.0 fL [place] [employer] [facility].; [employer] [facility]. Monocytes (Bld) [#/Vol] 410 {Cells}/uL Normal 20 0 - 950 {Cells}/uL [facility].; [place] [employer]. Monocytes/100 WBC (Bld) 4 % Normal 4 - 12 % H [facility].; [facility] Neutrophils (Bld) [#/Vol] 7250 {Cells}/uL Normal 1500 - 7800 {Cells}/uL [facility].; [place] [employer]. Neutrophils/100 WBC (Bld) 76 % Abnormal 40 - 75 % [facility].; [place] [employer] Platelet mean volume (Bld) [Entitic vol] 9.1 fL Normal 7.5 - 11.5 fL [facility] [employer] [facility].; [place] [employer] Platelets (Bld) [#/Vol] 213 10*3/uL Normal 140 - 400 10*3/uL [facility].; [place] [employer]. RBC (Bld) [#/Vol] 4.33 10*6/uL Normal 3.80 - 5.1 0 10*6/uL [facility] [employer].; [employer]. WBC (Bld) [#/Vol] 9.6 10*3/uL Normal 3.8 - 10.8 10*3/uL [place] [employer].; [employer]. Laboratory - Microbiology an d Antimicrobial susceptibilityon 01-21-2016 HBV surface Ag IA Ql Non-Reactive Normal [facility]; [employer]. Reagin Ab RPR Ql (S) Non-Reactive Normal [facility]; [employer]. Rubella virus IgG Qn (S) 3.46 [IU]/mL Normal [place] [employer] [facility].; [employer]. Laboratory - Specimen inform ationon 01-21-2016 Appearance (U) clear Normal [place] [employer]; [employer] Color (U) yellow Normal [facility].; [employer]. Laboratory - Urinalysison Glucose Test strip (U) [Mass/Vol] Negative Normal [facility]; [employer] Leukocyte esterase Test strip Ql (U) Negative Normal [facility].; [employer] Nitrite Ql (U) Negative Normal [employer]oon[employer] [facility].; [employer] Protein Ql (U) - Normal [place] [employer].; [facility]HealthCare Partners, Inc. No Panel Informationon 01-20 RH TYPE Positive Normal [employer]oonfed [facility].; [employer], [employer]. No Panel Information Group B Streptococcus Culture Group B Beta Streptococcus is not isolated. [facility] Work Phone: Vital Signs Date Time Vital Sign Value Performing Clinician Faci lity 12-08-2024 10:29-0400 Body height 165.[address] Mike Flores MD Work Phone: [facility] 12-08-2024 10:29-0400 Body mass index (BMI) [Ratio] 24.3 kg/m2 Dr. Mike Flores MD Work Phone: [facility] 12-08-2024 10:29-0400 Body weight 66.[address] Mike Flores MD Work Phone: [facility] 12-08-2024 10:29-0400 Diastolic blood pressure 83 mm[Hg] Dr. Mike Flores MD Work Phone: [facility] 12-08-2024 10:29-0400 Heart rate 84 /min Dr. Mike Flores MD Work Phone: [facility] 12-08-2024 10:29-0400 SaO2% (BldA) [Mass fraction] 98 % Dr. Mike Flores MD Work Phone: [facility] 12-08-2024 10:29-0400 Systolic blood pressure 120 mm[Hg] Dr. Mike Flores MD Work Phone: [facility] 09-28-2023 14:05-0400 Body height 165.[address] Mike Flores Work Phone: [facility] 09-28-2023 14:05-0400 Body mass index (BMI) [Ratio] 29.3 kg/m2 Dr. Mike Flores Work Phone: [facility] 09-28-2023 14:05-0400 Body weight 79.[address] Mike Flores Work Phone: [facility] 09-28-2023 14:05-0400 Diastolic blood pressure 64 mm[Hg] Dr. Mike Flores Work Phone: [facility] 09-28-2023 14:05-0400 Systolic blood pressure 108 mm[Hg] Dr. Mike Flores Work Phone: [facility] 08-25-2023 13:38-0400 Body height 165.[address] Mike Flores Work Phone: [phone] [place] [address] 08-25-2023 13:32-0400 Body mass index (BMI) [Ratio] 28.1 kg/m2 Dr. Mike Flores Work Phone: [facility] 08-25-2023 13:32-0400 Body weight 76.[address] Mike Flores Work Phone: [phone] [place] [address] 07-30-2023 10:38-0500 Body mass index (BMI) [Ratio] 27.4 kg/m2 Dr. Mike Flores Work Phone: [facility] 07-30-2023 10:38-0500 Body temperature 98.8 [degF] Dr. Mike Flores Work Phone: [facility] 07-30-2023 10:38-0500 Body weight 74.[address] Mike Flores Work Phone: [facility] 07-30-2023 10:38-0500 Diastolic blood pressure 76 mm[Hg] Dr. Mike Flores Work Phone: [facility] 07-30-2023 10:38-0500 Heart rate 78 /min Dr. Mike Flores Work Phone: [facility] 07-30-2023 10:38-0500 Respiratory rate 16 /min Dr. Mike Flores Work Phone: [facility] 07-30-2023 10:38-0500 SaO2% (BldA) [Mass fraction] 98 % Dr. Mike Flores Work Phone: [facility] 07-30-2023 10:38-0500 Systolic blood pressure 116 mm[Hg] Dr. Mike Flores Work Phone: [facility] 07-20-2023 14:45-0500 Body height 165.[address] Mike Flores Work Phone: [facility] 07-20-2023 14:45-0500 Body mass index (BMI) [Ratio] 27.1 kg/m2 Dr. Mike Flores Work Phone: [phone] [place] [address] 07-20-2023 14:45-0500 Body weight 74.[address] Mike Flores Work Phone: [facility] 07-20-2023 14:45-0500 Diastolic blood pressure 81 mm[Hg] Dr. Mike Flores Work Phone: [facility] 07-20-2023 14:45-0500 Systolic blood pressure 130 mm[Hg] Dr. Mike Flores Work Phone: [facility] 11-17-2021 08:31-0400 Body temperature 97.7 [degF] No Primary Care Physician [facility] Work Phone: 11-17-2021 08:31-0400 Diastolic blood pressure 67 mm[Hg] No Primary Care Physician [facility] Work Phone: 11-17-2021 08:31-0400 Heart rate 81 /min No Primary Care Physician [facility] Work Phone: 11-17-2021 08:31-0400 Respiratory rate 15 /min No Primary Care Physician [facility] Work Phone: 11-17-2021 08:31-0400 Systolic blood pressure 124 mm[Hg] No Primary Care Physician [facility] Work Phone: 11-17-2021 02:05-0400 SaO2% (BldA) [Mass fraction] 98 % No Primary Care Physician [facility] Work Phone: 11-15-2021 07:13-0400 Body height 165.1 cm No Primary Care Physician [facility] Work Phone: 11-15-2021 07:13-0400 Body mass index (BMI) [Ratio] 30 kg/m2 No Primary Care Physician [facility] Work Phone: 11-15-2021 07:13-0400 Body weight 82 kg No Primary Care Physician [facility] Work Phone: 11-12-2021 11:40-0400 Body mass index (BMI) [Ratio] 30.1 kg/m2 No Primary Care Physician [facility] Work Phone: 11-12-2021 11:40-0400 Body weight 82.1 kg No Primary Care Physician [facility] Work Phone: 11-12-2021 11:40-0400 Diastolic blood pressure 80 mm[Hg] No Primary Care Physician [facility] Work Phone: 11-12-2021 11:40-0400 Systolic blood pressure 110 mm[Hg] No Primary Care Physician [facility] Work Phone: 11-06-2021 14:40-0400 Body mass index (BMI) [Ratio] 29.9 kg/m2 No Primary Care Physician [facility] Work Phone: 11-06-2021 14:40-0400 Body weight 81.64 kg No Primary Care Physician [facility] Work Phone: 11-06-2021 14:40-0400 Diastolic blood pressure 84 mm[Hg] No Primary Care Physician [facility] Work Phone: 11-06-2021 14:40-0400 Systolic blood pressure 110 mm[Hg] No Primary Care Physician [facility] Work Phone: 10-28-2021 14:44-0400 Body mass index (BMI) [Ratio] 29.8 kg/m2 No Primary Care Physician [facility] Work Phone: 10-28-2021 14:44-0400 Body weight 81.3 kg No Primary Care Physician [facility] Work Phone: 10-28-2021 14:44-0400 Diastolic blood pressure 64 mm[Hg] No Primary Care Physician [facility] Work Phone: 10-28-2021 14:44-0400 Systolic blood pressure 100 mm[Hg] No Primary Care Physician [facility] Work Phone: 10-28-2021 14:44-0400 Body height 165.1 cm No Primary Care Physician [facility] Work Phone: 10-28-2021 14:44-0400 Body mass index (BMI) [Ratio] 29.8 kg/m2 No Primary Care Physician [facility] Work Phone: 10-28-2021 14:44-0400 Body weight 81.3 kg No Primary Care Physician [facility] Work Phone: 10-28-2021 14:44-0400 Diastolic blood pressure 64 mm[Hg] No Primary Care Physician [facility] Work Phone: 10-28-2021 14:44-0400 Systolic blood pressure 100 mm[Hg] No Primary Care Physician [facility] Work Phone: 10-14-2021 11:37-0400 Body mass index (BMI) [Ratio] 29.1 kg/m2 No Primary Care Physician [facility] Work Phone: 10-14-2021 11:37-0400 Body weight 79.37 kg No Primary Care Physician [facility] Work Phone: 10-14-2021 11:37-0400 Diastolic blood pressure 66 mm[Hg] No Primary Care Physician [facility] Work Phone: 10-14-2021 11:37-0400 Systolic blood pressure 124 mm[Hg] No Primary Care Physician [facility] Work Phone: 10-14-2021 11:37-0400 Body mass index (BMI) [Ratio] 29.1 kg/m2 No Primary Care Physician [facility] Work Phone: 10-14-2021 11:37-0400 Body weight 79.37 kg No Primary Care Physician [facility] Work Phone: 10-14-2021 11:37-0400 Diastolic blood pressure 66 mm[Hg] No Primary Care Physician [facility] Work Phone: 10-14-2021 11:37-0400 Systolic blood pressure 124 mm[Hg] No Primary Care Physician [facility] Work Phone: 10-03-2021 09:32-0400 Body mass index (BMI) [Ratio] 28.8 kg/m2 No Primary Care Physician [facility] Work Phone: 10-03-2021 09:32-0400 Body weight 78.47 kg No Primary Care Physician [facility] Work Phone: 10-03-2021 09:32-0400 Diastolic blood pressure 80 mm[Hg] No Primary Care Physician [facility] Work Phone: 10-03-2021 09:32-0400 Systolic blood pressure 92 mm[Hg] No Primary Care Physician [facility] Work Phone: 10-03-2021 09:32-0400 Body mass index (BMI) [Ratio] 28.8 kg/m2 No Primary Care Physician [facility] Work Phone: 10-03-2021 09:32-0400 Body weight 78.47 kg No Primary Care Physician [facility] Work Phone: 10-03-2021 09:32-0400 Diastolic blood pressure 80 mm[Hg] No Primary Care Physician [facility] Work Phone: 10-03-2021 09:32-0400 Systolic blood pressure 92 mm[Hg] No Primary Care Physician [facility] Work Phone: 09-09-2021 09:16-0400 Body weight 77.11 kg No Primary Care Physician [facility] Work Phone: 09-09-2021 09:16-0400 Diastolic blood pressure 82 mm[Hg] No Primary Care Physician [facility] Work Phone: 09-09-2021 09:16-0400 Systolic blood pressure 124 mm[Hg] No Primary Care Physician [facility] Work Phone: 09-09-2021 09:16-0400 Body weight 77.11 kg No Primary Care Physician [facility] Work Phone: 09-09-2021 09:16-0400 Diastolic blood pressure 82 mm[Hg] No Primary Care Physician [facility] Work Phone: 09-09-2021 09:16-0400 Systolic blood pressure 124 mm[Hg] No Primary Care Physician [facility] Work Phone: 08-13-2021 11:08-0400 Body mass index (BMI) [Ratio] 28.3 kg/m2 No Primary Care Physician [facility] Work Phone: 08-13-2021 10:51-0400 Body mass index (BMI) [Ratio] 27.3 kg/m2 No Primary Care Physician [facility] Work Phone: 08-13-2021 10:51-0400 Body weight 74.61 kg No Primary Care Physician [facility] Work Phone: 08-13-2021 10:51-0400 Diastolic blood pressure 78 mm[Hg] No Primary Care Physician [facility] Work Phone: 08-13-2021 10:51-0400 Systolic blood pressure 126 mm[Hg] No Primary Care Physician [facility] Work Phone: 08-13-2021 10:51-0400 Body mass index (BMI) [Ratio] 27.3 kg/m2 No Primary Care Physician [facility] Work Phone: 08-13-2021 10:51-0400 Body weight 74.61 kg No Primary Care Physician [facility] Work Phone: 08-13-2021 10:51-0400 Diastolic blood pressure 78 mm[Hg] No Primary Care Physician [facility] Work Phone: 08-13-2021 10:51-0400 Systolic blood pressure 126 mm[Hg] No Primary Care Physician [facility] Work Phone: 07-01-2021 13:06-0500 Body mass index (BMI) [Ratio] 25.9 kg/m2 No Primary Care Physician [facility] Work Phone: 07-01-2021 13:06-0500 Body weight 70.76 kg No Primary Care Physician [facility] Work Phone: 07-01-2021 13:06-0500 Diastolic blood pressure 70 mm[Hg] No Primary Care Physician [facility] Work Phone: 07-01-2021 13:06-0500 Systolic blood pressure 120 mm[Hg] No Primary Care Physician [facility] Work Phone: 05-27-2021 07:21-0500 Body mass index (BMI) [Ratio] 24.6 kg/m2 No Primary Care Physician [facility] Work Phone: 05-27-2021 07:21-0500 Body weight 67.13 kg No Primary Care Physician [facility] Work Phone: 05-27-2021 07:21-0500 Diastolic blood pressure 82 mm[Hg] No Primary Care Physician [facility] Work Phone: 05-27-2021 07:21-0500 Systolic blood pressure 120 mm[Hg] No Primary Care Physician [facility] Work Phone: 09-15-2016 14:06-0400 Diastolic blood pressure 83 mm[Hg] Frances Aubree SMALL PARTS SHAPER OPERATOR Work Phone: [facility], [employer] [facility] Comment on above: Patient Position: Sitting; Cuff Location : Left Arm; Cuff Size: Standard 09-15-2016 14:06-0400 Systolic blood pressure 132 mm[Hg] Frances Aubree SMALL PARTS SHAPER OPERATOR Work Phone: [employer]; [employer]. Comment on above: Patient Position: Sitting; Cuff Location : Left Arm; Cuff Size: Standard 08-01-2016 14:04-0500 Body height 167.64 cm Frances Morleyy SMALL PARTS SHAPER OPERATOR Work Phone: [employer]. 08-01-2016 14:04-0500 Body mass index (BMI) [Ratio] 26.15 kg/m2 Frances Aubree [employer] PARTS SHAPER OPERATOR Work Phone: [employer]. 08-01-2016 14:04-0500 Body surface area Derived from formula 1.83 m2 Frances Morleyy SMALL PARTS SHAPER OPERATOR Work Phone: [employer]; [employer]. 08-01-2016 14:04-0500 Body temperature 99 [degF] Frances Morleyy SMALL PARTS SHAPER OPERATOR Work Phone: [employer]; [employer]. Comment on above: Method: Tympanic 08-01-2016 14:04-0500 Body weight 73.48 kg Frances Morleyy SMALL PARTS SHAPER OPERATOR Work Phone: [employer]; [employer]. 08-01-2016 14:04-0500 Diastolic blood pressure 89 mm[Hg] Frances Morleyy SMALL PARTS SHAPER OPERATOR Work Phone: [employer]; [employer]. Comment on above: Patient Position: Sitting; Cuff Location : Left Arm; Cuff Size: Standard 08-01-2016 14:04-0500 Heart rate 106 /min Frances Aubree SMALL PARTS SHAPER OPERATOR Work Phone: [employer]; [employer]. Comment on above: Pattern: Regular 08-01-2016 14:04-0500 Systolic blood pressure 147 mm[Hg] Frances Aubree SMALL PARTS SHAPER OPERATOR Work Phone: [employer]; [employer]. Comment on above: Patient Position: Sitting; Cuff Location : Left Arm; Cuff Size: Standard 07-11-2016 15:11-0500 Body weight 79.38 kg Neilee L Vess SMALL PARTS SHAPER OPERATOR [employer]. 07-11-2016 15:11-0500 Diastolic blood pressure 87 mm[Hg] Neilee L Vess SMALL PARTS SHAPER OPERATOR [employer]. Comment on above: Patient Position: Sitting; Cuff Location : Right Arm; Cuff Size: Standard 07-11-2016 15:11-0500 Heart rate 89 /min Neilee L Vess SMALL PARTS SHAPER OPERATOR [employer]. Comment on above: Pattern: Regular 07-11-2016 15:11-0500 Systolic blood pressure 134 mm[Hg] Neilee L Vess SMALL PARTS SHAPER OPERATOR [employer]. Comment on above: Patient Position: Sitting; Cuff Location : Right Arm; Cuff Size: Standard 07-04-2016 15:48-0500 Body weight 78.02 kg Frances Aubree SMALL PARTS SHAPER OPERATOR Work Phone: [employer].; [employer]. 07-04-2016 15:48-0500 Diastolic blood pressure 80 mm[Hg] Frances Aubree SMALL PARTS SHAPER OPERATOR Work Phone: [employer].; [employer]. Comment on above: Patient Position: Sitting; Cuff Location : Left Arm; Cuff Size: Standard 07-04-2016 15:48-0500 Heart rate 88 /min Frances Aubree SMALL PARTS SHAPER OPERATOR Work Phone: [employer].; [employer]. Comment on above: Pattern: Regular 07-04-2016 15:48-0500 Systolic blood pressure 124 mm[Hg] Frances Aubree SMALL PARTS SHAPER OPERATOR Work Phone: [employer].; [employer]. Comment on above: Patient Position: Sitting; Cuff Location : Left Arm; Cuff Size: Standard 06-27-2016 09:10-0500 Body weight 78.02 kg Lenora Olivia RN Work Phone: [employer].; [employer]. 06-27-2016 09:10-0500 Diastolic blood pressure 87 mm[Hg] Lenora Olivia RN Work Phone: [employer].; [employer]. Comment on above: Patient Position: Sitting; Cuff Location : Right Arm; Cuff Size: Standard 06-27-2016 09:10-0500 Heart rate 85 /min Lenora Olivia RN Work Phone: [employer].; [employer]. Comment on above: Pattern: Regular 06-27-2016 09:10-0500 Systolic blood pressure 123 mm[Hg] Lenora Olivia RN Work Phone: [employer].; [employer]. Comment on above: Patient Position: Sitting; Cuff Location : Right Arm; Cuff Size: Standard 06-13-2016 09:09-0500 Body weight 74.84 kg Frances Aubree SMALL PARTS SHAPER OPERATOR Work Phone: [employer].; [employer]. 06-13-2016 09:09-0500 Diastolic blood pressure 88 mm[Hg] Frances Aubree SMALL PARTS SHAPER OPERATOR Work Phone: [employer].; [employer]. Comment on above: Patient Position: Sitting; Cuff Location : Left Arm; Cuff Size: Standard 06-13-2016 09:09-0500 Heart rate 85 /min Frances Aubree SMALL PARTS SHAPER OPERATOR Work Phone: [employer].; [employer]. Comment on above: Pattern: Regular 06-13-2016 09:09-0500 Systolic blood pressure 132 mm[Hg] Frances Aubree SMALL PARTS SHAPER OPERATOR Work Phone: [employer].; [employer]. Comment on above: Patient Position: Sitting; Cuff Location : Left Arm; Cuff Size: Standard 05-12-2016 09:18-0500 Body weight 73.03 kg Frances Aubree SMALL PARTS SHAPER OPERATOR Work Phone: [employer].; [employer]. 05-12-2016 09:18-0500 Diastolic blood pressure 89 mm[Hg] Frances Aubree SMALL PARTS SHAPER OPERATOR Work Phone: [employer].; [employer]. Comment on above: Patient Position: Sitting; Cuff Location : Left Arm; Cuff Size: Standard 05-12-2016 09:18-0500 Heart rate 88 /min Frances Mak SMALL PARTS SHAPER OPERATOR Work Phone: [employer].; [employer]. Comment on above: Pattern: Regular 05-12-2016 09:18-0500 Systolic blood pressure 137 mm[Hg] Frances Mak SMALL PARTS SHAPER OPERATOR Work Phone: [employer].; [employer]. Comment on above: Patient Position: Sitting; Cuff Location : Left Arm; Cuff Size: Standard 03-31-2016 16:10-0500 Body weight 67.59 kg Frances Mak LPN Work Phone: [employer].; [employer]. 03-31-2016 16:10-0500 Diastolic blood pressure 82 mm[Hg] Frances Mak SMALL PARTS SHAPER OPERATOR Work Phone: [employer].; [employer]. Comment on above: Patient Position: Sitting; Cuff Location : Left Arm; Cuff Size: Standard 03-31-2016 16:10-0500 Heart rate 86 /min Frances Mak LPN Work Phone: [employer].; [employer]. Comment on above: Pattern: Regular 03-31-2016 16:10-0500 Systolic blood pressure 119 mm[Hg] Frances Mak SMALL PARTS SHAPER OPERATOR Work Phone: [employer].; [employer]. Comment on above: Patient Position: Sitting; Cuff Location : Left Arm; Cuff Size: Standard 03-03-2016 13:12-0400 Body weight 66.23 kg Neilee L Vess SMALL PARTS SHAPER OPERATOR [employer] 03-03-2016 13:12-0400 Diastolic blood pressure 70 mm[Hg] Neilee L Vess SMALL PARTS SHAPER OPERATOR [employer].; [employer]. Comment on above: Patient Position: Sitting; Cuff Location : Right Arm; Cuff Size: Standard 03-03-2016 13:12-0400 Heart rate 86 /min Neilee L Vess SMALL PARTS SHAPER OPERATOR [employer]. Comment on above: Pattern: Regular 03-03-2016 13:12-0400 Systolic blood pressure 114 mm[Hg] Neilee L Vess SMALL PARTS SHAPER OPERATOR [employer].; [employer]. Comment on above: Patient Position: Sitting; Cuff Location : Right Arm; Cuff Size: Standard 01-21-2016 13:50-0400 Body height 167.64 cm Frances Aubree SMALL PARTS SHAPER OPERATOR Work Phone: [employer].; [employer]. 01-21-2016 13:50-0400 Body mass index (BMI) [Ratio] 22.27 kg/m2 Frances Aubree SMALL PARTS SHAPER OPERATOR Work Phone: [employer].; [employer]. 01-21-2016 13:50-0400 Body surface area Derived from formula 1.71 m2 Frances Aubree SMALL PARTS SHAPER OPERATOR Work Phone: [employer].; [employer]. 01-21-2016 13:50-0400 Body weight 62.6 kg Frances Aubree SMALL PARTS SHAPER OPERATOR Work Phone: [employer].; [employer]. 01-21-2016 13:50-0400 Diastolic blood pressure 84 mm[Hg] Frances Aubree SMALL PARTS SHAPER OPERATOR Work Phone: [employer].; [employer]. Comment on above: Patient Position: Sitting; Cuff Location : Left Arm; Cuff Size: Standard 01-21-2016 13:50-0400 Heart rate 86 /min Frances Aubree SMALL PARTS SHAPER OPERATOR Work Phone: [employer].; [employer]. Comment on above: Pattern: Regular 01-21-2016 13:50-0400 Systolic blood pressure 128 mm[Hg] Frances Aubree SMALL PARTS SHAPER OPERATOR Work Phone: [employer].; [employer]. Comment on above: Patient Position: Sitting; Cuff Location : Left Arm; Cuff Size: Standard Encounters Encounter Date Encounter Type Care Provider Facility Start: 12-08-2024 End: 12-08-[address] Huber Pagan [facility] Work Phone: Start: 12-08-2024 End: 12-08-[address] Mike Flores MD Work Phone: [facility] Start: 09-28-2024 End: 09-28-2024 ambulatory [facility] Start: 02-10-2024 End: 02-10-2024 ambulatory Mireya Harmon Facility[facility] Start: 12-26-2023 ambulatory Mike Flores [facility] ty:[facility] Start: 12-26-2023 End: 12-27-2023 Evaluation and management of inpatient Mike Flores Facility:[facility] Start: 12-23-2023 End: 12-23-2023 ambulatory Mike Flores Facility:[facility] Start: 10-28-2023 End: 10-28-2023 ambulatory GILMAR MATA [facility] Start: 09-28-2023 End: 09-28-[address] Mike Flores Work Phone: [facility] Work Phone: Start: 09-28-2023 End: 09-28-[address] Mike Flores Work Phone: [facility] Work Phone: Start: 08-25-2023 End: 08-25-[address] Mike Flores Work Phone: [facility] Work Phone: Start: 08-25-2023 End: 08-25-[address] Mike Flores Work Phone: [facility] Work Phone: Start: 07-30-2023 End: 07-30-[address] Mike Flores Work Phone: [facility] Work Phone: Start: 07-20-2023 End: 07-20-[address] Mike Flores Work Phone: [facility] Work Phone: Start: 07-20-2023 End: 07-20-[address] Mike Flores Work Phone: [facility]-Laboratory, Specimen Work Phone: Start: 07-20-2023 End: 07-20-[address] Mike Flores Work Phone: [facility] Work Phone: Start: 05-31-2022 End: 05-31-2022 ambulatory [facility] Work Phone: Start: 05-31-2022 End: 05-31-2022 Patient encounter procedure [facility] Start: 11-17-2021 Non-patient / Non-visit No Primary Care Physician [facility] Start: 11-16-2021 Non-patient / Non-visit No Primary Care Physician [facility] Start: 11-15-2021 Non-patient / Non-visit No Primary Care Physician [facility] Start: 11-15-2021 End: 11-17-2021 Evaluation and management of inpatient No Primary Care Physician [facility] Start: 11-12-2021 End: 11-12-2021 Patient encounter procedure No Primary Care Physician [facility] Start: 11-06-2021 End: 11-06-2021 Patient encounter procedure No Primary Care Physician [facility] Start: 10-28-2021 End: 10-28-2021 Patient encounter procedure No Primary Care Physician [facility]-Laboratory, Specimen Start: 10-28-2021 End: 10-28-2021 Patient encounter procedure No Primary Care Physician [facility] Start: 10-14-2021 End: 10-14-2021 Patient encounter procedure No Primary Care Physician [facility] Start: 10-03-2021 End: 10-03-2021 Patient encounter procedure No Primary Care Physician [facility] Start: 09-09-2021 End: 09-09-2021 Patient encounter procedure No Primary Care Physician [facility] Start: 08-13-2021 End: 08-13-2021 Patient encounter procedure No Primary Care Physician [facility]Laboratory, OP Pavilion Start: 07-01-2021 End: 07-01-2021 Patient encounter procedure No Primary Care Physician [facility] Start: 07-01-2021 End: 07-01-2021 Patient encounter procedure No Primary Care Physician [facility]-Outpatient Pavilion Ultrasound Start: 05-27-2021 End: 05-27-2021 Patient encounter procedure No Primary Care Physician [facility] Start: 12-21-2017 End: 12-21-2017 Historical Summary Mike Flores MD Work Phone: [employer] Start: 09-15-2016 End: 09-15-2016 Patient encounter procedure Mike Flores MD Work Phone: [employer] Start: 08-01-2016 End: 08-01-2016 Patient encounter procedure Mike Flores MD Work Phone: [employer] Start: 07-11-2016 End: 07-11-2016 Patient encounter procedure Mike Flores MD Work Phone: [employer] Start: 07-04-2016 End: 07-04-2016 Patient encounter procedure Mike Flores MD Work Phone: [employer] Start: 06-27-2016 End: 06-27-2016 Patient encounter procedure Mike Flores MD Work Phone: [employer] Start: 06-13-2016 End: 06-13-2016 Patient encounter procedure Mike Flores MD Work Phone: [employer] Start: 05-12-2016 End: 05-12-2016 Patient encounter procedure Mike Flores MD Work Phone: [employer] Start: 03-31-2016 End: 03-31-2016 Patient encounter procedure Mike Flores MD Work Phone: [employer] Start: 03-03-2016 End: 03-03-2016 Patient encounter procedure Mike Flores MD Work Phone: [employer] Start: 01-21-2016 End: 01-21-2016 Patient encounter procedure Mike Flores MD Work Phone: [employer] Procedures Date Procedure Procedure Detail Performing Clinician Start: 08-25-[address] Mike Flores Work Phone: Start: 08-25-2023 Bacterial nucleic ac id assay Dr. Mike Flores Work Phone: Start: 07-20-[address] Mike Flores Work Phone: Start: 05-31-2022 US scan of thyroid Start: 10-28-2021 Group B Streptococcu s Culture No Primary Care Physician Start: 07-01-2021 anatomy study No Primary Care Physician Start: 05-27-2021 Urine culture No Primar y Care Physician Start: 09-16-2016 End: 09-16-2016 Microscopic examination of cervical Papanicolaou smear Mike Flores MD Work Phone: Comment on above: 09/16/16 neg Start: 07-11-2016 End: 07-11-2016 Ob care antepartum vag dlvr & Mike Flores MD Work Phone: Start: 07-04-2016 End: 07-04-2016 Ob care antepartum vag dlvr & Mike Flores MD Work Phone: Start: 06-27-2016 End: 06-27-2016 Ob care antepartum vag dlvr & Mike Flores MD Work Phone: Start: 06-13-2016 End: 06-13-2016 Ob care antepartum vag dlvr & Mike Flores MD Work Phone: Start: 05-12-2016 End: 05-12-2016 Ob care antepartum vag dlvr & Mike Flores MD Work Phone: Start: 03-31-2016 End: 03-31-2016 Flu vaccine refused Frances Aubree SMALL PARTS SHAPER OPERATOR Work Phone: Start: 03-31-2016 End: 03-31-2016 Ob care antepartum vag dlvr & Mike Flores MD Work Phone: Start: 03-03-2016 End: 03-03-2016 Ob care antepartum vag dlvr & Mike Flores MD Work Phone: Start: 01-21-2016 End: 01-23-2016 preg uterus after 1st trimest 05/25 gestation Mike Flores MD Work Phone: Start: 01-21-2016 End: 01-21-2016 Ob care antepartum vag dlvr & Mike Flores MD Work Phone: section Franceskalli carrizales SMALL PARTS SHAPER OPERATOR Work Phone: Group B Streptococcu s Culture No Primary Care Physician H/O: section Previous c esarean delivery affecting No Primary Care Physician Comment on above: x 2 H/O: section Previous c esarean section Dr. Mike Flores Work Phone: Comment on above: x 3 H/O: section H/O: Jazzy Mak LPN Work Phone: H/O: section H/O: Mike Flores MD Work Phone: No history of procedure Jazzy Mak LPN Work Phone: Viral antigen assay No Prima ry Care Physician Plan of Treatment Date Care Activity Detail Author Start: 11-17-2021 [facility]: Start: 11-15-2021 Administration of medication [facility] Work Phone: Start: 11-15-2021 Application of ice c ollar, cap or bag [facility] Work Phone: Start: 11-15-2021 Catheterization of vein [facility] Work Phone: Start: 11-15-2021 Introduction of urin clay catheter [facility] Work Phone: Start: 11-15-2021 Measuring intake and output [facility] Work Phone: Start: 11-15-2021 Notification of physician [facility] Work Phone: Start: 11-15-2021 Procedure discontinued [facility] Work Phone: Start: 11-15-2021 Provision of activit y privileges [facility] Work Phone: Start: 11-15-2021 Vital signs measurements [facility] Work Phone: Start: 11-15-2021 [facility] Work Phone: Start: 11-15-2021 Admission procedure [facility] Work Phone: Start: 11-15-2021 [facility] Work Phone: CBC W Auto Different ial panel - Blood [facility] Glucose [Mass/volume ] in Serum or Plasma --1 hour post 50 g glucose PO [facility] Hepatitis B surface antigen measurement [facility] Hepatitis C antibody measurement [facility] HIV 1+2 Ab+HIV1 p24 Ag [Presence] in Serum or Plasma by Immunoassay [facility] HIV 1+2 Ab+HIV1 p24 Ag [Presence] in Serum or Plasma by Immunoassay [facility] Patient Education After a Vagina l [facility] Work Phone: Patient referral [facility] Work Phone: Rubella IgG measurement [facility] Treponema sp Ab [Pre sence] in Serum [facility] Treponema sp Ab [Pre sence] in Serum [facility] Immunizations Immunization Date Immunization Notes Care Provider Fa urbanty NEGATED: Highlighted row has not occurred! influenza, injectable, quadrivalent, contains preservative Mike Flores MD Work Phone: [facility], [employer] [facility] Payers Date Payer Category Payer Unknown 2023 Self-pay [id number] 2023 Unknown [id number] Unknown [id number] Unknown [facility] PACKAGE [employer]AN . [id number] Unknown [id number] Unknown [id number] Unknown [id number] Unknown [id number] Unknown [id number] Unknown [id number] Social History Date Type Detail Facility Start: 08-13-2021 End: 08-25-2023 Tobacco smoking status NHIS Unknown if ever smoked [facility] Start: 05-29-2019 None [facility] Start: 1995 Sex Assigned At Female W [facility] Child(alyse) Child(alyse) [facility] [email or web address] [facility] Tobacco Use: Tobacco Use: ; N ever smoker. [facility] Start: 12-26-2023 Never smoked tobacco [facility] Goals Date Patient Goal Desired Activity /State Clinical Note 05-27-2021 Note Date & Type Note Facility 05-27-2021 Note [facility] Work Phone: Pap Smear Specimen Adequacy May 27, 2021 12:42pm Comment Satisfactory for evaluation. Endocervical and/or squamous metaplasticcells (endocervical component) are present. Comment on above: Satisfactory for anupam luation. Endocervical and/or squamous metaplasticcells (endocervical component) are present. Evaluation note Note Date & Type Note Facility Evaluation note Diagnosis Onset Date Family history of cleft palate acute Hypothyroid acute acute Previous delivery a ffecting acute Supervision of high-risk acute Family history of cleft palate acute Hypothyroid acute acute Previous delivery a ffecting acute Supervision of high-risk acute Family history of cleft palate acute Hypothyroid acute acute Previous delivery a ffecting acute Supervision of high-risk acute [facility] Work Phone: Evaluation note Note Date & Type Note Facility Evaluation note Diagnosis Onset Date Family history of cleft palate acute Hypothyroid acute acute Previous delivery a ffecting acute Supervision of high-risk acute Family history of cleft palate acute Hypothyroid acute acute Previous delivery a ffecting acute Supervision of high-risk acute Family history of cleft palate acute Hypothyroid acute acute Previous delivery a ffecting acute Supervision of high-risk acute Family history of cleft palate acute Hypothyroid acute acute Previous delivery a ffecting acute Supervision of high-risk acute Family history of cleft palate acute Hypothyroid acute acute Previous delivery a ffecting acute Supervision of high-risk acute [facility] Work Phone: Evaluation note Note Date & Type Note Facility Evaluation note Diagnosis Onset Date Family history of cleft palate acute Hypothyroid acute acute Previous delivery a ffecting acute Supervision of high-risk acute Family history of cleft palate acute Hypothyroid acute acute Previous delivery a ffecting acute Supervision of high-risk acute Family history of cleft palate acute Hypothyroid acute acute Previous delivery a ffecting acute Supervision of high-risk acute Family history of cleft palate acute Hypothyroid acute acute Previous delivery a ffecting acute Supervision of high-risk acute Family history of cleft palate acute Hypothyroid acute acute Previous delivery a ffecting acute Supervision of high-risk acute Family history of cleft palate acute Hypothyroid acute acute Previous delivery a ffecting acute Supervision of high-risk acute Family history of cleft palate acute Hypothyroid acute acute Previous delivery a ffecting acute Supervision of high-risk acute Family history of cleft palate acute Hypothyroid acute acute Previous delivery a ffecting acute Status post vaginal delivery acute Supervision of high-risk acute [facility] Work Phone: Evaluation note Note Date & Type Note Facility Evaluation note No assessment information availa [facility] Work Phone: Evaluation note Note Date & Type Note Facility Evaluation note Diagnosis Onset Date Enlarged thyroid acute FH: cleft palate acute Hypothyroidism acute acute Previous section ac [place] Supervision of high-risk acute Varicose veins during acute [facility] Work Phone: Evaluation note Note Date & Type Note Facility Evaluation note Diagnosis Onset Date FH: cleft palate acute acute Previous section ac [place] Supervision of high-risk acute Varicose veins during acute Enlarged thyroid chronic Hypothyroidism chronic Enlarged thyroid chronic Hypothyroidism chronic FH: cleft palate acute acute Previous section ac [place] Supervision of high-risk acute Varicose veins during acute [facility] Work Phone: Evaluation note Note Date & Type Note Facility Evaluation note Diagnosis Onset Date FH: cleft palate acute acute Previous section ac [place] Supervision of high-risk acute Varicose veins during acute Enlarged thyroid chronic Hypothyroidism chronic Enlarged thyroid chronic Hypothyroidism chronic FH: cleft palate acute acute Previous section ac [place] Supervision of high-risk acute Varicose veins during acute FH: cleft palate acute acute Previous section ac [place] Supervision of high-risk acute Varicose veins during acute Enlarged thyroid chronic Hypothyroidism chronic [facility] Work Phone: Reason for referral (narrative) Note Date & Type Note Facility Reason for referral (narrative) No reason for referral information available [facility] Work Phone: Summary Purpose Family History No Family History Records Found Relationship Condition Age at Onset Recorded Date/T jennifer Not Specified Malignant neoplasm of breast Unknown brother Disorder of thyroid Unknown mother Malignant neoplasm of thyroid gland Unk[place] wn grandmother Diabetes mellitus Unknown sister Diabetes mellitus Unknown Relationship Condition Age at Onset Recorded Date/T jennifer Not Specified Malignant neoplasm of breast Unknown brother Disorder of thyroid Unknown mother Malignant neoplasm of thyroid gland Unkno wn grandmother Diabetes mellitus Unknown Malignant neoplasm of colon Unknown sister Diabetes mellitus Unknown grandfather Malignant neoplasm of colon Unknown Malignant neoplasm Unknown Father Status:Active Comments:In good health. Mother Status:Active Comments:In good health. Thyroid Cancer Status:Active Comments:Mother. Father Status:Active Comments:In good health. Mother Status:Active Comments:In good health. Thyroid Cancer Status:Active Comments:Mother. Father Status:Active Comments:In good health. Mother Status:Active Comments:In good health. Thyroid Cancer Status:Active Comments:Mother. Father Status:Active Comments:In good health. Mother Status:Active Comments:In good health. Thyroid Cancer Status:Active Comments:Mother. Father Status:Active Comments:In good health. Mother Status:Active Comments:In good health. Thyroid Cancer Status:Active Comments:Mother. Father Status:Active Comments:In good health. Mother Status:Active Comments:In good health. Thyroid Cancer Status:Active Comments:Mother. Father Status:Active Comments:In good health. Mother Status:Active Comments:In good health. Thyroid Cancer Status:Active Comments:Mother. Advance Directives No Advanced Directives Records Found Advance Directive Response Recorded Date/ Time Living Will No August 13, 2021 11:08am Power of Personal Injury Specialist No August 13 11:08am Advance Directive Response Recorded Date/ Time Living Will No November 15, 2021 8:08am Power of Personal Injury Specialist No November 15 8:08am Advance Directive Response Recorded Date/ Time Living Will No November 15, 2021 7:08am Power of Personal Injury Specialist No November 15 7:08am Chief Complaint and Reason for Visit Chief Complaint NOB LMP 02/06/21 Z34.90 Z34.90 21WK OB 26 WK OB Reason for Visit Family history of cl eft palate Hypothyroid Previous delivery affecting Supervision of high-risk Family history of cleft palate Hypothyroid Previous delivery affecting Supervision of high-risk Family history of cleft palate Hypothyroid Previous delivery affecting Supervision of high-risk Chief Complaint 26 WK OB 30WK OB 34 WK OB 36 wk OB 38 WK OB Reason for Visit Family history of cl eft palate Hypothyroid Previous delivery affecting Supervision of high-risk Family history of cleft palate Hypothyroid Previous delivery affecting Supervision of high-risk Family history of cleft palate Hypothyroid Previous delivery affecting Supervision of high-risk Family history of cleft palate Hypothyroid Previous delivery affecting Supervision of high-risk Family history of cleft palate Hypothyroid Previous delivery affecting Supervision of high-risk Chief Complaint 26 WK OB 30WK OB 34 WK OB 36 wk OB 38 WK OB 39WK OB 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 Reason for Visit Family history of cl eft palate Hypothyroid Previous delivery affecting Supervision of high-risk Family history of cleft palate Hypothyroid Previous delivery affecting Supervision of high-risk Family history of cleft palate Hypothyroid Previous delivery affecting Supervision of high-risk Family history of cleft palate Hypothyroid Previous delivery affecting Supervision of high-risk Family history of cleft palate Hypothyroid Previous delivery affecting Supervision of high-risk Family history of cleft palate Hypothyroid Previous delivery affecting Supervision of high-risk Family history of cleft palate Hypothyroid Previous delivery affecting Supervision of high-risk Family history of cleft palate Hypothyroid Previous delivery affecting Status post vaginal delivery Supervision of high-risk Chief Complaint GOITER Chief Complaint New OB, 16 weeks @ p t request Reason for Visit Enlarged thyroid FH: cleft palate Hypothyroidism Previous section Supervision of high-risk Varicose veins during Chief Complaint New OB, 16 weeks @ p t request 1 Y FU 21 WK OB ANATOMY Reason for Visit FH: cleft palate Previous section Supervision of high-risk Varicose veins during Enlarged thyroid Hypothyroidism Enlarged thyroid Hypothyroidism FH: cleft palate Previous section Supervision of high-risk Varicose veins during Chief Complaint New OB, 16 weeks @ p t request 1 Y FU 21 WK OB ANATOMY 25 WK OB Reason for Visit FH: cleft palate Previous section Supervision of high-risk Varicose veins during Enlarged thyroid Hypothyroidism Enlarged thyroid Hypothyroidism FH: cleft palate Previous section Supervision of high-risk Varicose veins during FH: cleft palate Previous section Supervision of high-risk Varicose veins during Enlarged thyroid Hypothyroidism Chief Complaint Admit Date 16 M FU December 08, 2024 10:1 8am Additional Source Comments INFORMATION SOURCE (unrecogn ized section and content) DATE CREATED AUTHOR 10/20/2020 [facility] DATE CREATED AUTHOR AUTHOR'S ORGANIZ ATION 10/01/2024 [facility] DATE CREATED AUTHOR AUTHOR'S ORGANIZ ATION 12/14/2024 [facility] Goals (unrecognized section and content) Goals may be documented in a n alternate sectionGoals may be documented in an alternate sectionGoals may be documented in an alternate sectionGoals may be documented in an alternate sectionGoals may be documented in an alternate sectionGoals may be documented in an alternate sectionGoals may be documented in an alternate section Care Teams (unrecognized sec tion and content) Team Status: Active Member Role Status Dates No Primary Care Physician Family Provider Active Dr. Mike Flores MD Primary Care Provider Active Team Status: Inactive Member Role Status Dates Dr. Adela Delgado DO Attending Provider, Refe rring Provider Active Dr. Mike Flores MD Primary Care Provider Active Team Status: Inactive Member Role Status Dates Dr. Mike Flores MD Primary Care Provider, Refer ring Provider Active Dr. Adela Delgado DO Attending Provider Activ e Team Status: Inactive Member Role Status Dates Dr. Mike Flores MD Primary Care Provider Active Dr. Adela Delgado DO Attending Provider Activ e Team Status: Inactive Member Role Status Dates Dr. Mike Flores MD Primary Care Provider, Refer ring Provider Active Dr. Huber Pagan MD Attending Provider Active Team Status: Inactive Member Role Status Dates Dr. Mike Flores MD Primary Care Provider, Refer ring Provider Active Mireya Harmon CNM Attending Provider Active Team Status: Inactive Member Role Status Dates Dr. Mike Flores MD Primary Care Provider Active Dr. Adela Delgado DO Attending Provider, Refe rring Provider Active Team Status: Inactive Member Role Status Dates Dr. Mike Flores MD Primary Care Provider, Refer ring Provider Active Mini Lamb SHUTTLE THREADER, SHUTTLE THREADER-C Attending Provider Active Team Status: Inactive Member Role Status Dates Dr. Mike Flores MD Primary Care Provider Active Mireya Faustino , CNM Attending Provider, Referring Pro vider Active Team Status: Active Member Role/Relationship Status Dates No Primary Care Physician Family Provider Active Dr. iMke Flores MD Primary Care Provider Active Team Status: Inactive Member Role/Relationship Status Dates Dr. Mike Flores MD Primary Care Provider Active Start: December 08, 2024 End: December 08, 2024 Dr. Mike Flores MD Referring Provider Active Start: December 08, 2024 End: December 08, 2024 Dr. Huber Pagan MD Attending Provider Active Sta rt: December 08, 2024 End: December 08, 2024 FOR RECORDS PERTAINING TO PATIENTS WHO ARE OR HAVE BEEN ENROLLED IN A CHEMICAL DEPENDENCY/SUBSTANCEABUSE PROGRAM, SOME INFORMATION MAY BE OMITTED. This clinical summary was aggregated from multiple sources. Caution should be exercised in using it in the provision of clinical care. This summary normalizes information from multiple sources, and as a consequence, information in this document may materially change the coding, format and clinical context of patient data. In addition, data may be omitted in some cases. CLINICAL DECISIONS SHOULD BE BASED ON THE PRIMARY CLINICAL RECORDS. [facility] [employer] provides no warranty or guarantee of the accuracy or completeness of information in this document.
== END 2025-04-13 16:57 | disposition home or self-care (01) ==
LOC: SDC 13:37 → AC 13:39
PROVIDERS: PCP Family Medicine; Referring Provider Obstetrics & Gynecology; Visit Provider Obstetrics & Gynecology
PROC: (CPT 59820; principal; 2025-04-13 14:45)
DX: O02.1 Missed abortion (principal); Z86.718 Personal history of other venous thrombosis and embolism; E03.9 Hypothyroidism, unspecified; E04.9 Nontoxic goiter, unspecified; E06.3 Autoimmune thyroiditis; O99.281 Endocrine, nutritional and metabolic diseases complicating pregnancy, first trimester; Z79.890 Hormone replacement therapy; Z79.899 Other long term (current) drug therapy; O22.01 Varicose veins of lower extremity in pregnancy, first trimester
CPT/HCPCS: 59820; 01965; 85027; 86850; 86900; 86901; 88305; J2405